=== PATIENT | male | born 1955 | race Caucasian/White ===

== ENCOUNTER 2016-12-02 06:48 | Inpatient (IN) | payer OTHER ==
--- NOTE | 2016-12-02 07:06 | PDOC ---
History of Present Illness - General Chief Complaint: Nausea/Vomiting Stated Complaint: NAUSEA/VOMITING Time Seen by Provider: 12/02/16 07:03 - History of Present Illness Initial Comments: 12/02/16 07:27 The pt is a 61 year old male with a significant PMH of A.Fib., COPD, CKD, DM, HDL, CABG, history of gastric ulcer, hx of testicular cancer who presents to ED after near syncope episode today. 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 He pulled over, stopped cab and called for assistance. He vomited twice non-bloody, non bilious. Currently he is still feeling unsteady and lightheaded. He denies chest pain, SOB, palpitations, LOC. He denies diarrhea, constipation, fever, chills. He had similar episode last summer when he was hospitalized and transfused blood. Past History - Past Medical History Allergies/Adverse Reactions: Allergies Allergy/AdvReac Type Severity Reaction Status Date / Time latex AdvReac Severe Rash Verified 12/02/16 06:59 TAPE AdvReac Severe Uncoded 12/02/16 06:59 Home Medications: Ambulatory Orders Multivitamin [Multivitamins] 1 each PO DAILY 10/03/12 Insulin NPL/Insulin Lispro [Humalog Mix 50-50 Pen] 60 unit SQ HS #0 ml 01/10/14 Insulin NPL/Insulin Lispro [Humalog Mix 75-25 Pen] 60 unit SQ AM #0 ml 01/10/14 Metformin HCl [Glucophage] 1,000 mg PO BID 05/28/15 Pantoprazole Sodium [Protonix] 40 mg PO DAILY 05/28/15 Atorvastatin Ca [Lipitor] 20 mg PO HS tablet 03/31/16 Aspirin [ASA -] 81 mg PO DAILY 04/21/16 Unobtainable 12/02/16 Anemia: Yes Asthma: No Cancer: Yes (testicular -> surgery + chemo in ) Cardiac Disorders: Yes (ATRIAL [id number] "NUCLEAR CHIP" FOR EVENING RHYTHM MONITORING) CVA: No COPD: No CHF: No Dementia: No Diabetes: Yes (type 1 since 31 y/o) GI Disorders: No Disorders: No HTN: Yes Hypercholesterolemia: Yes Liver Disease: No Suicide Attempt (Hx): No Seizures: No Thyroid Disease: No - Surgical History Abdominal Surgery: No Appendectomy: Yes () Cardiac Surgery: Yes (2007 triple bypass, aortic valve GROWTH REMOVED, ablaTion) Cholecystectomy: Yes (2009) Lung Surgery: No Neurologic Surgery: No Orthopedic Surgery: No - Immunization History Immunization Up to Date: Yes - Psycho/Social/Smoking Cessation Hx Anxiety: No Suicidal Ideation: No Smoking Status: Yes Smoking History: Current every day smoker Have you smoked in the past 12 months: Yes Number of Cigarettes Smoked Daily: 40 If you are a former smoker, when did you quit?: PER , PT. DENIES SMOKING Cigars Per Day: 0 Information on smoking cessation initiated: No 'Breaking Loose' booklet given: 01/19/16 Hx Alcohol Use: No Drug/Substance Use Hx: No Substance Use Type: None Hx Substance Use Treatment: No Review of Systems - Review of Systems Able to Perform ROS?: Yes Comments:: 12/02/16 07:49 REVIEW OF SYSTEMS CONSTITUTIONAL: generalized weakness Absent: fever, chills, diaphoresis, malaise, loss of appetite, weight change HEENT: Absent: rhinorrhea, nasal congestion, throat pain, throat swelling, difficulty swallowing, mouth swelling, ear pain, eye pain, visual changes CARDIOVASCULAR: Absent: chest pain, syncope, palpitations, irregular heart rate, lightheadedness , peripheral edema RESPIRATORY: Absent: cough, shortness of breath, dyspnea with exertion, orthopnea, wheezing, stridor, hemoptysis GASTROINTESTINAL: Absent: abdominal pain, abdominal distension, nausea, vomiting, diarrhea, constipation, melena, hematochezia GENITOURINARY: Absent: dysuria, frequency, urgency, hesitancy, hematuria, flank pain, genital pain MUSCULOSKELETAL: Absent: myalgia, arthralgia, joint swelling, back pain, neck pain SKIN: Absent: rash, itching, pallor HEMATOLOGIC/IMMUNOLOGIC: Absent: easy bleeding, easy bruising, lymphadenopathy, frequent infections ENDOCRINE: Absent: unexplained weight gain, unexplained weight loss, heat intolerance, cold intolerance NEUROLOGIC: dizziness, unsteady gait Absent: headache, focal weakness or paresthesias,, seizure, mental status changes, bladder or bowel incontinence PSYCHIATRIC: Absent: anxiety, depression *Physical Exam - Vital Signs Last Vital Signs Temp Pulse Resp BP Pulse Ox 98.7 F 87 22 154/97 97 12/02/16 06:59 12/02/16 06:59 12/02/16 06:59 12/02/16 06:59 12/02/16 06:59 - Physical Exam Comments: 12/02/16 07:50 GENERAL: The patient is awake, alert, and fully oriented, in no acute distress. HEAD: Normal with no signs of trauma. EYES: PERRL, extraocular movements intact, sclera anicteric, conjunctiva clear. No ptosis. ENT: Ears normal, nares patent, oropharynx clear without exudates, moist mucous membranes. NECK: Trachea midline, full range of motion, supple. LUNGS: Breath sounds equal, diminished bilaterally, no wheezes, no crackles, no accessory muscle use. HEART: Regular rate and rhythm, S1, S2 without murmur, rub or gallop. ABDOMEN: Obese, soft, nontender, nondistended, normoactive bowel sounds, no guarding, no rebound, no hepatosplenomegaly, no masses. EXTREMITIES: no edema. NEUROLOGICAL: Normal speech, no facial assymetry, gait not observed. PSYCH: Normal mood, normal affect. SKIN: Warm, dry, normal turgor, no rashes, long vertical scar from chest across the abdomen. ED Treatment Course - LABORATORY CBC & Chemistry Diagram: 12/02/16 08:15 12/02/16 08:15 Medical Decision Making - Medical Decision Making 12/02/16 07:58 The pt is a 61 year old male who presents s/p near syncope earlier today. Differential diagnosis include cardiac, metabolic imbalance, anemia, infection. We ordered CBC, CMP, CXR, ECG, cardiac monitoring, PT, PTT/INR, UA. We will monitor. 12/02/16 09:47 chest x ray shows no acute pathology, CBC and CMP reviewed, no anemia, UA blood and protein present, no Leuk.Est elev. We are monitoring the pt, EKG sinus rhytm, 71 bpm, 1st degree AV block, right axis deviation, incomplete RBBB, no ST changes QTC 445 ms. He is still unsteady and feels lightheaded. We contacted Dr. Sullivan and Dr. Levine. The pt will be observed in telemetry. *DC/Admit/Observation/Transfer Diagnosis at time of Disposition: Near syncope - Discharge Dispostion Admit: Yes
[2016-12-02 07:09] VITALS: BMI 28.5
[2016-12-02] MEDS ORDERED: PANTOPRAZOLE SODIUM 40 MG in SODIUM CHLORIDE 100 ML IVPB ONE (07:33)
--- NOTE | 2016-12-02 07:39 | PDOC ---
Attending Attestation - Resident Resident Name: Damaris Haines - ED Attending Attestation I have performed the following: I have examined & evaluated the patient, The case was reviewed & discussed with the resident, I agree w/resident's findings & plan, Exceptions are as noted - HPI HPI: 12/02/16 07:37 61-year-old male history of atrial fibrillation, on baby aspirin, COPD, chronic kidney disease, diabetes, coronary artery disease status post CABG, hyperlipidemia, testicular cancer, history of GI bleed in the setting of gastric ulcer presents with lightheadedness and near syncope. Patient reported feeling general malaise yesterday. He woke up today at 3:30 the morning to go to work but noticed that he was feeling unsteady and more lightheaded upon standing up. He feels generalized weakness but denies any chest pain or shortness of breath. Denies any palpitations. Denies recent illnesses, fevers, chills, cough. Patient reported that last summer when it is similar incident of feeling lightheaded and weak, his hemoglobin was low and required but just fusions. He had an endoscopy performed which demonstrated gastric ulcer. Denies rectal bleeding at this time. - Physicial Exam PE: 12/02/16 07:37 GENERAL: Awake, alert, and fully oriented, in no acute distress. HEAD: No signs of trauma EYES: PERRLA, EOMI, sclera anicteric, conjunctiva clear ENT: Auricles normal inspection, hearing grossly normal, nares patent, oropharynx clear without exudates. NECK: Normal ROM, supple, no lymphadenopathy, JVD, or masses LUNGS: Breath sounds equal, clear to auscultation bilaterally. No wheezes, and no crackles HEART: Regular rate and rhythm, normal S1 and S2, no murmurs, rubs or gallops ABDOMEN: Soft, nontender, normoactive bowel sounds. No guarding, no rebound. No masses EXTREMITIES: Normal range of motion, no edema. No clubbing or cyanosis. No cords, erythema, or tenderness NEUROLOGICAL: Cranial nerves II through XII intact. Normal speech. 5/5 strength upper and lower extremities. No pronator drift. FTN intact. Heel to garcia intact. Unsteady gait after standing up. SKIN: Warm, Dry, normal turgor, no rashes or lesions noted. - Medical Decision Making 12/02/16 07:38 ECG: NSR 71 with 1st degree AV block, right axis deviation, incomplete RBBB, no std/gualberto, QTC 445 msec Assessment and plan: 61-year-old male with multiple medical problems presents with lightheadedness. The patient frontal includes cardiac, anemia secondary to GI bleed, metabolic disarray, occult infectious. We'll obtain labs, chest x-ray, and reassess. Patient is unsteady on his gait. We'll touch base with patient's primary care physician.
[2016-12-02] MEDS ORDERED: PANTOPRAZOLE SODIUM 40 MG VIAL ONE (07:52)
[2016-12-02 08:35] LABS: MCH 24.8 pg (25.7-33.7); MCHC 32.6 g/dl (32.0-35.9); MEAN CELL VOLUME 76.1 fl (80-96); MEAN PLT VOLUME 8.1 fl (7.5-11.1); PLATELET COUNT 192 K/MM3 (134-434); RDW 16.4 % (11.9-15.9); WHITE BLOOD COUNT 6.4 K/mm3 (4.0-10.0)
[2016-12-02 08:45] LABS: INR 0.96 (0.82-1.09); PROTHROMBIN TIME (PATIENT) 10.6 SEC (9.98-11.88)
[2016-12-02] MEDS ORDERED: SODIUM CHLORIDE 500 ML IV STA (08:45)
[2016-12-02 08:52] LABS: ALBUMIN 3.4 g/dl (3.4-5.0); ANION GAP 10 (8-16); BILIRUBIN,TOTAL 0.4 mg/dL (0.2-1.0); CALCIUM 8.8 mg/dL (8.5-10.1); CO2 29 mmol/L (21-32); CREATININE 1.1 mg/dL (0.7-1.3); GLUCOSE,RANDOM 210 mg/dL (74-106); SGOT/AST 19 U/L (15-37); SGPT/ALT 31 U/L (12-78); TOT PROT 6.3 g/dl (6.4-8.2)
[2016-12-02 08:53] LABS: ALK PHOS 86 U/L (45-117)
[2016-12-02 09:04] LABS: URINE APPEARANCE CLEAR; URINE BILIRUBIN NEGATIVE (NEGATIVE); URINE BLOOD NEGATIVE (NEGATIVE); URINE COLOR AMBER; URINE GLUCOSE (UA) 3+ (NEGATIVE); URINE KETONE TRACE (NEGATIVE); URINE LEUK ESTERASE NEGATIVE (NEGATIVE); URINE NITRITE NEGATIVE (NEGATIVE); URINE UROBILINOGEN 2.0 E.U/dl E.U./dl (0.2-1.0)
[2016-12-02 09:05] LABS: URINE PROTEIN 3+ (NEGATIVE)
[2016-12-02 09:09] LABS: GRANULAR CASTS 1 /lpf; URINE HYALINE CAST 73 /lpf; URINE MUCUS FEW; URINE RBC 1 /hpf (0-3); URINE WBC 2 /hpf (3-5)
[2016-12-02 09:22] LABS: TROPONIN I 0.03 ng/ml (0.00-0.05)
--- NOTE | 2016-12-02 14:57 | CON.CARD ---
Cardiology Consult (text) - Consultation Consultation Note: CC: presyncope 61 yo heavy smoker with h/o CAD--s/p CABG and resection of fibroelastoma, HTN, HPL, aflutter s/p ablation 2010 now with loop recorder (off eliquis due to GIB) , COPD, IDDM, Lymphoma--s/p expl sternotomy and XRT in 70's who presents with recurrent presyncope. 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 Had similar episode this past summer also triggered by smoking cigarette. Otherwise he had been in usual state of health. He has chronic right LE edema (site of vein extraction) . No cp, palps, dizziness, orthpnea, PND, BOYCE, transient neurologic sx's. He denies fever, chills, sweats, nausea, vomiting, diarrhea, headache, rashes, cough, nasal congestion. Pmhx: per hpi PSurg hx: CABG, Cholecystectomy Social hx: Current every day smoker, states he smoke 3 packs per day Fam hx: Diabetes: Grandparent, Heart Disease: Father Ros: per hpi Ambulatory Orders Multivitamin [Multivitamins] 1 each PO DAILY 10/03/12 Insulin NPL/Insulin Lispro [Humalog Mix 50-50 Pen] 60 unit SQ HS #0 ml 01/10/14 Insulin NPL/Insulin Lispro [Humalog Mix 75-25 Pen] 60 unit SQ AM #0 ml 01/10/14 Metformin HCl [Glucophage] 1,000 mg PO BID 05/28/15 Pantoprazole Sodium [Protonix] 40 mg PO BID 05/28/15 Atorvastatin Ca [Lipitor] 20 mg PO HS tablet 03/31/16 Aspirin [ASA -] 81 mg PO DAILY 04/21/16 Insulin Aspart [Novolog Flexpen] 14 unit SQ HS 12/02/16 Ramipril 2.5 mg PO DAILY 12/02/16 Vital Signs - 24 hr 12/02/16 12/02/16 06:59 10:47 Temperature 98.7 F 98.3 F Pulse Rate 87 83 Respiratory 22 18 Rate Blood Pressure 154/97 163/94 O2 Sat by Pulse 97 100 Oximetry (%) Intake & Output 11/30/16 12/01/16 12/02/1617 07:59 07:59 07:59 07:59 Weight 235 lb 235 lb NAD, calm JVD flat, neck supple RRR nl s1, s2 2/6 sys murmur at lsb diminshed air movement + bs soft nt nd ext with trace edema , no c/c + dp/pt aaox3 no jaundice, diaphoresis no carotid bruits. - Other Data Labs, Other Data: CBC, BMP 12/02/16 08:15 12/02/16 08:15 Laboratory Tests 12/02/16 12/02/16 12/02/16 08:15 17:00 17:00 Total Bilirubin 0.4 D AST 19 D ALT 31 Alkaline Phosphatase 86 Troponin I 0.03 D 0.02 D B-Natriuretic Peptide 275.30 H Albumin 3.4 Imaging/Testing EKG: SR with PVC. Rightward axis. AV delay. Incomplete RBBB. Possible anterior infarct. tele: NSR with pvc. occasional ectopic atrial beats vs wandering atrial pacemaker. CXR: no significant abnormalities Echo 03/2016: nl LV/EF; nl RV; mild LAE; mild EP study 03/2015: no inducible arrythmia, durable bidirectional block across CTI ( site of prior ablation) Echo 11/2014: normal LV/RV size and function, ao sclerosis, [facility] 08/2012: [place] VD, patent SVG to Lcx-OM1 jump to RPDA, patent SON to LAD 61 yo heavy smoker with h/o CAD--s/p CABG and resection of fibroelastoma, HTN, HPL, aflutter s/p ablation 2010 now with loop recorder (off eliquis due to GIB) , COPD, IDDM, Lymphoma--s/p expl sternotomy and XRT in 70's who presents with recurrent presyncope. Presyncope - orthostatic vitals - Current episode as well as prior episodes have occurred in setting of smoking (smokes 3 ppd). Recommend pre and post O2 sat to r/o pulmonary etiology of dizziness/presyncope. -Most recent episode thought to be vasovagal in etiology, but cannot rule out symptomatic afib. Per EP no arrhythmia noted overnight, but morning recordings not yet available. Telemetry monitoring - EKG without ischemic changes. CE neg x 2. - TSH afib/flutter s/p ablation, followed by EP - has implantable loop recorder with brief episodes of recurrence over the year. Currently in SR off av richard blockade. - currently AC on hold until small bowel enteroscopy due to recent GIB. HTN - suboptimal, but has not yet received ramipril, con't to monitor HL - con't atorvastatin CAD s/p CABG - No signs of ACS or anginal sx's. - con't asa, statin, acei + tobacco - management of copd - tobacco cessation counseling
--- NOTE | 2016-12-02 16:22 | HP ---
Admitting History and Physical - Admission Chief Complaint: 61 y.o M became dizzy and nearly syncopized today at 4 AM while working. 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 No: Alzheimer's, CVA, Dementia, Migraine, Multiple Sclerosis, Peripheral Neuropathy, Parkinson's, Seizure, TIA, Other Cardiovascular: Yes: AFIB, CAD, HTN, Hyperlipdemia, Other (A flutter) Pulmonary: Yes: COPD Hepatobiliary: Yes: Cholecystitis (Cholecystectomy) Renal/: Yes: Renal Inusuff Endocrine: Yes: Diabetes Mellitus - Past Surgical History Past Surgical History: Yes: CABG, Cholecystectomy - Smoking History Smoking history: Current every day smoker Have you smoked in the past 12 months: Yes Aproximately how many cigarettes per day: 40 If you are a former smoker, when did you quit?: PER , PT. DENIES SMOKING - Alcohol/Substance Use Hx Alcohol Use: No - Social History History of Recent Travel: No Home Medications - Allergies Allergies/Adverse Reactions: Allergies Allergy/AdvReac Type Severity Reaction Status Date / Time latex AdvReac Severe Rash Verified 12/02/16 06:59 TAPE AdvReac Severe Uncoded 12/02/16 06:59 - Home Medications Home Medications: Ambulatory Orders Multivitamin [Multivitamins] 1 each PO DAILY 10/03/12 Insulin NPL/Insulin Lispro [Humalog Mix 50-50 Pen] 60 unit SQ HS #0 ml 01/10/14 Insulin NPL/Insulin Lispro [Humalog Mix 75-25 Pen] 60 unit SQ AM #0 ml 01/10/14 Metformin HCl [Glucophage] 1,000 mg PO BID 05/28/15 Pantoprazole Sodium [Protonix] 40 mg PO BID 05/28/15 Atorvastatin Ca [Lipitor] 20 mg PO HS tablet 03/31/16 Aspirin [ASA -] 81 mg PO DAILY 04/21/16 Insulin Aspart [Novolog Flexpen] 14 unit SQ HS 12/02/16 Ramipril 2.5 mg PO DAILY 12/02/16 Family Disease History - Family Disease History Family Disease History: Diabetes: Grandparent, Heart Disease: Father Review of Systems - Review of Systems Constitutional: denies: No Symptoms, Chills, Diaphoresis, Fever, Lethargy, Loss of Appetite, Malaise, Night Sweats, Unintentional Wgt. Loss, Weakness, Other Eyes: denies: No Symptoms, Blind Spots, Blurred Vision, Double Vision, Eye Pain , Floaters, Photophobia, Recent Change in Vision, Other HENT: denies: No Symptoms, Difficult Swallowing, Ear Discharge, Ear Pain, Epistaxis, Gingival Bleeding, Hearing Loss, Mouth Swelling, Nasal Congestion, Ocular Prosthesis, Throat Pain, Toothache, Ringing in Ears, Other Neck: denies: No Symptoms, Decreased ROM, Lumps, Pain on Movement, Stiffness, Swollen Glands, Tenderness, Other Cardiovascular: denies: No Symptoms, Chest Pain, Edema, Palpitations, Shortness of Breath, Other Respiratory: denies: No Symptoms, Cough, Exercise Intolerance, Hemoptysis, Orthopnea, PND, Snoring, SOB, SOB on Exertion, Wheezing, Other Gastrointestinal: denies: No Symptoms, Abdominal Pain, Bloating, Constipation, Diarrhea, Dysphagia, Indigestion, Melena, Nausea, Rectal Bleeding, Vomiting, Vomiting Blood, Other Breasts: reports: No Symptoms Reported Musculoskeletal: denies: No Symptoms, Back Pain, Crepitus, Decreased ROM, Extremity Pain, Joint Pain, Joint Swelling, Muscle Pain, Muscle Cramps, Muscle Weakness, Other Integumentary: denies: No Symptoms, Blister, Bruising, Change in Color, Eczema, Erythema, Incision, Lesions, Lump, Pallor, Pruritis, Rash, Wound, Other Endocrine: denies: No Symptoms, Excessive Sweating, Flushing, Increased Hunger, Increased Thirst, Intolerance to Cold, Intolerance to Heat, Unexplained Weight Gain, Unexplained Weight Loss, Other Hematology/Lymphatic: reports: No Symptoms Psychiatric: reports: No Symptoms Physical Examination Vital Signs: Vital Signs Temperature 98.2 F 12/02/16 15:09 Pulse Rate 73 12/02/16 15:09 Respiratory Rate 18 12/02/16 15:09 Blood Pressure 117/80 12/02/16 15:09 O2 Sat by Pulse Oximetry (%) 96 12/02/16 14:00 Constitutional: Yes: Well Nourished, No Distress, Calm Eyes: Yes: Conjunctiva Clear, EOM Intact HENT: Yes: Atraumatic, Normocephalic Neck: Yes: Supple, Trachea Midline Cardiovascular: Yes: Regular Rate and Rhythm. No: Bradycardia, Tachycardia, JVD Respiratory: Yes: Regular, CTA Bilaterally Gastrointestinal: Yes: Normal Bowel Sounds, Soft, Other (Well healed scars). No : Ascites, Palpable Mass, Tenderness ...Rectal Exam: Yes: Deferred Renal/: No: Anuria, Bladder Distention, CVA Tenderness - Left, CVA Tenderness - Right Musculoskeletal: Yes: WNL Extremities: No: Calf Tenderness, Cold Edema: LLE: Trace, RLE: Trace Peripheral Pulses WNL: No Integumentary: Yes: WNL Neurological: Yes: WNL ...Motor Strength: WNL Psychiatric: Yes: WNL Imaging - Results EKG: Image Reviewed Problem List - Problems (1) Near syncope Assessment/Plan: Known cuase previously rapid AFIB Will get Loop monitor results. Telemetry Code(s): R55 - SYNCOPE AND COLLAPSE (2) 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 Assessment/Plan: Basal Insulin and short acting. BGM Diet, Metformin Code(s): E11.22 - TYPE 2 DIABETES MELLITUS W DIABETIC CHRONIC KIDNEY DISEASE N18.2 - CHRONIC KIDNEY DISEASE, STAGE 2 (MILD) Qualifiers: Diabetes mellitus shelter insulin use: with shelter use Qualified Code(s): E11.22 - Type 2 diabetes mellitus with diabetic chronic kidney disease; N18.2 - Chronic kidney disease, stage 2 (mild); Z79.4 - director long term care (current) use of insulin (3) Occult GI bleeding Assessment/Plan: Follow CBC Code(s): R19.5 - OTHER FECAL ABNORMALITIES
--- NOTE | 2016-12-02 17:10 | EKG ---
Test Reason : Blood Pressure : / mmHG Vent. Rate : 071 BPM Atrial Rate : 071 BPM P-R Int : 202 ms QRS Dur : 106 ms QT Int : 410 ms P-R-T Axes : 068 095 050 degrees QTc Int : 445 ms SINUS RHYTHM WITH OCCASIONAL PREMATURE VENTRICULAR COMPLEXES RIGHTWARD AXIS INCOMPLETE RIGHT BUNDLE BRANCH BLOCK POSSIBLE ANTERIOR INFARCT , AGE UNDETERMINED ABNORMAL ECG WHEN COMPARED WITH ECG OF 25-APR-2016 23:36, ABERRANT CONDUCTION IS NO LONGER PRESENT Confirmed by DIPIKA ROSALES MD ([id number]) on 12/02/2016 5:10:16 PM Referred By: Confirmed By:DIPIKA ROSALES MD
[2016-12-02] MEDS: metFORMIN HCL 500 MG TABLET (FP) PO SCH (18:15)
[2016-12-02] MEDS: PANTOPRAZOLE 40 MG TABLET (FP) PO SCH (21:13)
[2016-12-02] MEDS: INSULIN DETEMIR 100 UNITS/ML MDV SQ SCH (21:14)
[2016-12-02] MEDS ORDERED: [UNRECOGNIZED DRUG - OTHER] SQ SCH (22:00)
[2016-12-02] MEDS ORDERED: INSULIN (NOVOLOG) ASPART 100 UNITS/ML 10ML VIAL SQ SCH (22:00)
[2016-12-02] MEDS ORDERED: ATORVASTATIN CA 20 MG TABLET (FP) PO SCH (22:00)
[2016-12-02] MEDS ORDERED: INSULIN LISPRO SQ SCH (22:00)
[2016-12-02] MEDS ORDERED: INSULIN NPL SQ SCH (22:00)
[2016-12-03] MEDS: metFORMIN HCL 500 MG TABLET (FP) PO SCH (06:11)
[2016-12-03 08:19] LABS: BASOPHIL 0.8 % (0-2.0); EOSINOPHIL 2.2 % (0-4.5); MCH 24.8 pg (25.7-33.7); MCHC 32.5 g/dl (32.0-35.9); MEAN CELL VOLUME 76.3 fl (80-96); MEAN PLT VOLUME 8.1 fl (7.5-11.1); NEUTROPHILS 70.8 % (42.8-82.8); PLATELET COUNT 193 K/MM3 (134-434); RDW 16.4 % (11.9-15.9); WHITE BLOOD COUNT 6.5 K/mm3 (4.0-10.0)
--- NOTE | 2016-12-03 08:37 | PN ---
Progress Note (short form) - Note Progress Note: Awake, alert, NAD. Non-orthostatic. Ambulates in the room well, no dizziness Alarms review- SR, VPC Vital Signs (72 hours) 12/02/16 12/02/16 12/02/16 06:59 10:47 14:00 Temperature 98.7 F 98.3 F 97.9 F Pulse Rate 87 83 62 Pulse Rate [ Left side Sitting] Pulse Rate [ Left side Standing] Pulse Rate [ Left side Supine] Respiratory 22 18 18 Rate Blood Pressure 154/97 163/94 130/62 Blood Pressure [Left side Sitting] Blood Pressure [Left side Standing] Blood Pressure [Left side Supine] O2 Sat by Pulse 97 100 96 Oximetry (%) 12/02/16 12/02/16 12/02/16 15:09 16:13 16:50 Temperature 98.2 F 98.5 F Pulse Rate 73 82 Pulse Rate [ 77 Left side Sitting] Pulse Rate [ 82 Left side Standing] Pulse Rate [ 74 Left side Supine] Respiratory 18 18 Rate Blood Pressure 117/80 133/72 Blood Pressure 117/59 [Left side Sitting] Blood Pressure 142/77 [Left side Standing] Blood Pressure 124/71 [Left side Supine] O2 Sat by Pulse Oximetry (%) 12/02/16 12/03/16 12/03/16 21:00 02:00 06:46 Temperature 99.3 F 98.1 F 98.4 F Pulse Rate 82 81 79 Pulse Rate [ Left side Sitting] Pulse Rate [ Left side Standing] Pulse Rate [ Left side Supine] Respiratory 18 18 18 Rate Blood Pressure 136/81 116/63 161/72 Blood Pressure [Left side Sitting] Blood Pressure [Left side Standing] Blood Pressure [Left side Supine] O2 Sat by Pulse 93 L Oximetry (%) Neck-no JVD Lungs are Clear Heart S1S2 regular. Abdomen soft, NT Ext -trace edema Noted protein URINE 3+ h/h STABLE-iMP Abnormal Lab Results 12/02/16 12/02/16 12/02/16 08:15 08:15 08:30 MCV 76.1 L RDW 16.4 H D Random Glucose 210 H B-Natriuretic Peptide Total Protein 6.3 L Urine Protein 3+ H Urine Glucose (UA) 3+ H Urine Ketones Trace H 12/02/16 12/03/16 17:00 06:30 MCV 76.3 L RDW 16.4 H Random Glucose B-Natriuretic Peptide 275.30 H Total Protein Urine Protein Urine Glucose (UA) Urine Ketones Laboratory Results - last 24 hr 12/02/16 12/02/16 12/02/16 08:15 08:15 08:15 WBC 6.4 D RBC 5.30 Hgb 13.1 Hct 40.3 MCV 76.1 L MCHC 32.6 RDW 16.4 H D Plt Count 192 MPV 8.1 Neutrophils % Lymphocytes % Monocytes % Eosinophils % Basophils % INR PTT (Actin FS) Sodium 140 Potassium 4.8 Chloride 101 Carbon Dioxide 29 D Anion Gap 10 BUN 17 D Creatinine 1.1 D Creat Clearance w eGFR > 60 POC Glucometer Random Glucose 210 H Calcium 8.8 Total Bilirubin 0.4 D AST 19 D ALT 31 Alkaline Phosphatase 86 Creatine Kinase Cancelled 125 Troponin I Cancelled 0.03 D B-Natriuretic Peptide Total Protein 6.3 L Albumin 3.4 Urine Color Urine Appearance Urine pH Ur Specific [place] Urine Protein Urine Glucose (UA) Urine Ketones Urine Blood Urine Nitrite Urine Bilirubin Urine Urobilinogen Ur Leukocyte Esterase Urine RBC Urine WBC Ur Epithelial Cells Hyaline Casts Granular Casts Urine Mucus Blood Type Antibody Screen 12/02/16 12/02/16 12/02/16 08:15 08:15 08:15 WBC RBC Hgb Hct MCV MCHC RDW Plt Count MPV Neutrophils % Lymphocytes % Monocytes % Eosinophils % Basophils % INR 0.96 PTT (Actin FS) 32.0 Sodium Potassium Chloride Carbon Dioxide Anion Gap BUN Creatinine Creat Clearance w eGFR POC Glucometer Random Glucose Calcium Total Bilirubin AST ALT Alkaline Phosphatase Creatine Kinase Troponin I B-Natriuretic Peptide Total Protein Albumin Urine Color Urine Appearance Urine pH Ur Specific [place] Urine Protein Urine Glucose (UA) Urine Ketones Urine Blood Urine Nitrite Urine Bilirubin Urine Urobilinogen Ur Leukocyte Esterase Urine RBC Urine WBC Ur Epithelial Cells Hyaline Casts Granular Casts Urine Mucus Blood Type A POSITIVE Antibody Screen Negative 12/02/16 12/02/16 12/02/16 08:30 17:00 17:00 WBC RBC Hgb Hct MCV MCHC RDW Plt Count MPV Neutrophils % Lymphocytes % Monocytes % Eosinophils % Basophils % INR PTT (Actin FS) Sodium Potassium Chloride Carbon Dioxide Anion Gap BUN Creatinine Creat Clearance w eGFR POC Glucometer Random Glucose Calcium Total Bilirubin AST ALT Alkaline Phosphatase Creatine Kinase Troponin I 0.02 D B-Natriuretic Peptide 275.30 H Total Protein Albumin Urine Color [place] Urine Appearance Clear Urine pH 5.0 Ur Specific [place] 1.027 Urine Protein 3+ H Urine Glucose (UA) 3+ H Urine Ketones Trace H Urine Blood Negative Urine Nitrite Negative Urine Bilirubin Negative Urine Urobilinogen 2.0 e.u/dl Ur Leukocyte Esterase Negative Urine RBC 1 Urine WBC 2 Ur Epithelial Cells Rare Hyaline Casts 73 Granular Casts 1 Urine Mucus Few Blood Type Antibody Screen 12/02/16 12/02/16 12/03/16 18:09 20:53 05:23 WBC RBC Hgb Hct MCV MCHC RDW Plt Count MPV Neutrophils % Lymphocytes % Monocytes % Eosinophils % Basophils % INR PTT (Actin FS) Sodium Potassium Chloride Carbon Dioxide Anion Gap BUN Creatinine Creat Clearance w eGFR POC Glucometer 374 370 79 Random Glucose Calcium Total Bilirubin AST ALT Alkaline Phosphatase Creatine Kinase Troponin I B-Natriuretic Peptide Total Protein Albumin Urine Color Urine Appearance Urine pH Ur Specific [place] Urine Protein Urine Glucose (UA) Urine Ketones Urine Blood Urine Nitrite Urine Bilirubin Urine Urobilinogen Ur Leukocyte Esterase Urine RBC Urine WBC Ur Epithelial Cells Hyaline Casts Granular Casts Urine Mucus Blood Type Antibody Screen 12/03/16 06:30 WBC 6.5 RBC 5.09 Hgb 12.6 Hct 38.8 MCV 76.3 L MCHC 32.5 RDW 16.4 H Plt Count 193 MPV 8.1 Neutrophils % 70.8 Lymphocytes % 18.0 D Monocytes % 8.2 D Eosinophils % 2.2 D Basophils % 0.8 D INR PTT (Actin FS) Sodium Potassium Chloride Carbon Dioxide Anion Gap BUN Creatinine Creat Clearance w eGFR POC Glucometer Random Glucose Calcium Total Bilirubin AST ALT Alkaline Phosphatase Creatine Kinase Troponin I B-Natriuretic Peptide Total Protein Albumin Urine Color Urine Appearance Urine pH Ur Specific [place] Urine Protein Urine Glucose (UA) Urine Ketones Urine Blood Urine Nitrite Urine Bilirubin Urine Urobilinogen Ur Leukocyte Esterase Urine RBC Urine WBC Ur Epithelial Cells Hyaline Casts Granular Casts Urine Mucus Blood Type Antibody Screen iMP Current Active Problems Problem Status Diagnosed Anemia Acute 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 Acute Near syncope Acute Occult GI bleeding Acute Pneumonia Acute Right renal mass Acute pLAN mONITOR PER CARDIOLOGY aRRHYTHMIA W/U, ABLATION. gi F/U RE PREVIOUYS BLEED- sb ENTEROSCOPY. wILL FOLLOW IN THE OFFICE pATIENT AGAIN ADVISED TO QUIT SMOKING! AND TO BE MORE COMPLIANT WITH DIABETES TREATMENTS. 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
--- NOTE | 2016-12-03 08:39 | DS ---
Physical Examination Vital Signs: Vital Signs Temperature 98.4 F 12/03/16 06:46 Pulse Rate 79 12/03/16 06:46 Respiratory Rate 18 12/03/16 06:46 Blood Pressure 161/72 12/03/16 06:46 O2 Sat by Pulse Oximetry (%) 93 L 12/02/16 21:00 Constitutional: Yes: No Distress, Calm Eyes: Yes: Conjunctiva Clear, EOM Intact HENT: Yes: Atraumatic, Normocephalic Neck: Yes: Supple, Trachea Midline Cardiovascular: Yes: Pulse Irregular (vpc), S1, S2. No: Bradycardia, Tachycardia, JVD, Rub Respiratory: Yes: Regular, CTA Bilaterally Gastrointestinal: Yes: Normal Bowel Sounds, Soft, Abdomen, Obese. No: Palpable Mass, Tenderness ...Rectal Exam: Yes: Deferred Renal/: No: Anuria, Bladder Distention, CVA Tenderness - Left, CVA Tenderness - Right Breast(s): Yes: WNL Musculoskeletal: Yes: WNL Extremities: No: Calf Tenderness, Cold Edema: Yes Edema: LLE: Trace, RLE: Trace Peripheral Pulses WNL: No Neurological: Yes: Alert, Oriented. No: Aphasia, Confusion, Dysarthria, Facial Droop, Lethargy, Pre-Existing Deficit, Seizure, Unresponsive, Unsteady Gait, Weakness ...Motor Strength: WNL Psychiatric: Yes: WNL Labs: CBC, BMP 12/03/16 06:30 Laboratory Results - last 24 hr 12/02/16 12/02/16 12/02/16 08:15 08:15 08:15 WBC RBC Hgb Hct MCV MCHC RDW Plt Count MPV Neutrophils % Lymphocytes % Monocytes % Eosinophils % Basophils % INR 0.96 PTT (Actin FS) Sodium 140 Potassium 4.8 Chloride 101 Carbon Dioxide 29 D Anion Gap 10 BUN 17 D Creatinine 1.1 D Creat Clearance w eGFR > 60 POC Glucometer Random Glucose 210 H Calcium 8.8 Total Bilirubin 0.4 D AST 19 D ALT 31 Alkaline Phosphatase 86 Creatine Kinase Cancelled 125 Troponin I Cancelled 0.03 D B-Natriuretic Peptide Total Protein 6.3 L Albumin 3.4 Urine Color Urine Appearance Urine pH Ur Specific [place] Urine Protein Urine Glucose (UA) Urine Ketones Urine Blood Urine Nitrite Urine Bilirubin Urine Urobilinogen Ur Leukocyte Esterase Urine RBC Urine WBC Ur Epithelial Cells Hyaline Casts Granular Casts Urine Mucus Blood Type Antibody Screen 12/02/16 12/02/16 12/02/16 08:15 08:15 08:30 WBC RBC Hgb Hct MCV MCHC RDW Plt Count MPV Neutrophils % Lymphocytes % Monocytes % Eosinophils % Basophils % INR PTT (Actin FS) 32.0 Sodium Potassium Chloride Carbon Dioxide Anion Gap BUN Creatinine Creat Clearance w eGFR POC Glucometer Random Glucose Calcium Total Bilirubin AST ALT Alkaline Phosphatase Creatine Kinase Troponin I B-Natriuretic Peptide Total Protein Albumin Urine Color [place] Urine Appearance Clear Urine pH 5.0 Ur Specific [place] 1.027 Urine Protein 3+ H Urine Glucose (UA) 3+ H Urine Ketones Trace H Urine Blood Negative Urine Nitrite Negative Urine Bilirubin Negative Urine Urobilinogen 2.0 e.u/dl Ur Leukocyte Esterase Negative Urine RBC 1 Urine WBC 2 Ur Epithelial Cells Rare Hyaline Casts 73 Granular Casts 1 Urine Mucus Few Blood Type A POSITIVE Antibody Screen Negative 12/02/16 12/02/16 12/02/16 17:00 17:00 18:09 WBC RBC Hgb Hct MCV MCHC RDW Plt Count MPV Neutrophils % Lymphocytes % Monocytes % Eosinophils % Basophils % INR PTT (Actin FS) Sodium Potassium Chloride Carbon Dioxide Anion Gap BUN Creatinine Creat Clearance w eGFR POC Glucometer 374 Random Glucose Calcium Total Bilirubin AST ALT Alkaline Phosphatase Creatine Kinase Troponin I 0.02 D B-Natriuretic Peptide 275.30 H Total Protein Albumin Urine Color Urine Appearance Urine pH Ur Specific [place] Urine Protein Urine Glucose (UA) Urine Ketones Urine Blood Urine Nitrite Urine Bilirubin Urine Urobilinogen Ur Leukocyte Esterase Urine RBC Urine WBC Ur Epithelial Cells Hyaline Casts Granular Casts Urine Mucus Blood Type Antibody Screen 12/02/16 12/03/16 12/03/16 20:53 05:23 06:30 WBC 6.5 RBC 5.09 Hgb 12.6 Hct 38.8 MCV 76.3 L MCHC 32.5 RDW 16.4 H Plt Count 193 MPV 8.1 Neutrophils % 70.8 Lymphocytes % 18.0 D Monocytes % 8.2 D Eosinophils % 2.2 D Basophils % 0.8 D INR PTT (Actin FS) Sodium Potassium Chloride Carbon Dioxide Anion Gap BUN Creatinine Creat Clearance w eGFR POC Glucometer 370 79 Random Glucose Calcium Total Bilirubin AST ALT Alkaline Phosphatase Creatine Kinase Troponin I B-Natriuretic Peptide Total Protein Albumin Urine Color Urine Appearance Urine pH Ur Specific [place] Urine Protein Urine Glucose (UA) Urine Ketones Urine Blood Urine Nitrite Urine Bilirubin Urine Urobilinogen Ur Leukocyte Esterase Urine RBC Urine WBC Ur Epithelial Cells Hyaline Casts Granular Casts Urine Mucus Blood Type Antibody Screen Discharge Summary Reason For Visit: PRE SYNCOPE Current Active Problems Anemia (Acute) 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 (Acute) Near syncope (Acute) Occult GI bleeding (Acute) Pneumonia (Acute) Right renal mass (Acute) Condition: Stable - Instructions Referrals: Ko Sullivan MD [Primary Care Provider] - - Home Medications Comprehensive Discharge Medication List: Ambulatory Orders Multivitamin [Multivitamins] 1 each PO DAILY 10/03/12 Insulin NPL/Insulin Lispro [Humalog Mix 50-50 Pen] 60 unit SQ HS #0 ml 01/10/14 Insulin NPL/Insulin Lispro [Humalog Mix 75-25 Pen] 60 unit SQ AM #0 ml 01/10/14 Metformin HCl [Glucophage] 1,000 mg PO BID 05/28/15 Pantoprazole Sodium [Protonix] 40 mg PO BID 05/28/15 Atorvastatin Ca [Lipitor] 20 mg PO HS tablet 03/31/16 Aspirin [ASA -] 81 mg PO DAILY 04/21/16 Insulin Aspart [Novolog Flexpen] 14 unit SQ HS 12/02/16 Ramipril 2.5 mg PO DAILY 12/02/16
[2016-12-03 08:55] LABS: ALBUMIN 3.3 g/dl (3.4-5.0); GLUCOSE,RANDOM 75 mg/dL (74-106)
[2016-12-03 09:03] LABS: ALK PHOS 74 U/L (45-117); ANION GAP 10 (8-16); BILIRUBIN,TOTAL 0.3 mg/dL (0.2-1.0); CO2 28 mmol/L (21-32); MAGNESIUM 1.6 mg/dL (1.8-2.4); PHOSPHOROUS 4.4 mg/dL (2.5-4.9); SGOT/AST 16 U/L (15-37); SGPT/ALT 25 U/L (12-78)
--- NOTE | 2016-12-03 09:56 | EKG ---
Test Reason : Blood Pressure : / mmHG Vent. Rate : 082 BPM Atrial Rate : 082 BPM P-R Int : 192 ms QRS Dur : 106 ms QT Int : 388 ms P-R-T Axes : 000 088 067 degrees QTc Int : 453 ms SINUS RHYTHM WITH MARKED SINUS ARRHYTHMIA WITH FREQUENT PREMATURE VENTRICULAR COMPLEXES POSSIBLE INFERIOR INFARCT , AGE UNDETERMINED INCOMPLETE RBBB CANNOT RULE OUT ANTERIOR INFARCT (CITED ON OR BEFORE 02-DEC-2016) ABNORMAL ECG Confirmed by SARA JACKSON MD ([id number]) on 12/03/2016 9:55:47 AM Referred By: Confirmed By:SARA JACKSON MD
[2016-12-03] MEDS ORDERED: ASPIRIN 81 MG CHEWABLE TABLETS PO SCH (10:00)
[2016-12-03] MEDS ORDERED: RAMIPRIL 2.5 MG CAPSULE (FP) PO SCH (10:00)
[2016-12-03] MEDS: INSULIN DETEMIR 100 UNITS/ML MDV SQ SCH (10:08)
[2016-12-03] MEDS: PANTOPRAZOLE 40 MG TABLET (FP) PO SCH (10:08)
[2016-12-03 10:15] VITALS: BP 103/64; PULSE 80; TEMP 98.3
--- NOTE | 2016-12-03 11:28 | PN ---
Progress Note (short form) - Note Progress Note: s: no cp sob palps dizzy loc o: Vital Signs Period Temp Pulse Resp BP Sys/Perez Pulse Ox Last 24 Hr 97.9 F-99.3 F 62-82 16-18 103-161/59-81 93-96 NAD, calm JVD flat, neck supple RRR nl s1, s2 2/6 sys murmur at lsb scattered mild wheeze, nl eff no le e/c/c aaox3 no jaundice, diaphoresis Current Medications Generic Name Dose Route Start Last Admin Trade Name Camachoq PRN Reason Stop Dose Admin Aspirin 81 mg 12/03/16 10:00 12/03/16 10:08 Asa - PO 81 mg DAILY WINDY Administration Atorvastatin Calcium 20 mg 12/02/16 22:00 12/02/16 21:13 Lipitor - PO 20 mg HS WINDY Administration Insulin Aspart 14 units 12/02/16 22:00 12/02/16 21:16 Novolog Vial SQ 14 units HS WINDY Administration Insulin Detemir 30 units 12/02/16 22:00 12/03/16 10:08 Levemir Vial SQ 30 units BID WINDY Administration Metformin HCl 1,000 mg 12/02/16 16:30 12/03/16 06:11 Glucophage - PO 1,000 mg BIDAC WINDY Administration Pantoprazole Sodium 40 mg 12/02/16 22:00 12/03/16 10:08 Protonix - PO 40 mg BID WINDY Administration Ramipril 2.5 mg 12/03/16 10:00 12/03/16 10:08 Altace - PO 2.5 mg DAILY WINDY Administration CBC, BMP 12/03/16 06:30 12/03/16 06:30 EKG: SR with PVC. Rightward axis. AV delay. Incomplete RBBB. Possible anterior infarct. tele: sr, occ pvcs CXR: no significant abnormalities Echo 03/2016: nl LV/EF; nl RV; mild LAE; mild EP study 03/2015: no inducible arrythmia, durable bidirectional block across CTI ( site of prior ablation) Echo 11/2014: normal LV/RV size and function, ao sclerosis, MAC LHC 08/2012: [place] 3 VD, patent SVG to [id number] jump to RPDA, patent SON to LAD a/p: 61 yo heavy smoker with h/o CAD--s/p CABG and resection of fibroelastoma , HTN, HPL, aflutter s/p ablation 2010 now with loop recorder (off eliquis due to GIB), COPD, IDDM, Lymphoma--s/p expl sternotomy and XRT in 70's who presents with recurrent presyncope. Presyncope - orthostatic vitals normal here -Most recent episode thought to be vasovagal in etiology, but cannot rule out symptomatic afib. Per EP no arrhythmia noted on loop recorder yesterday. Tele here unremarkable - EKG without ischemic changes. CE neg x 2. afib/flutter s/p ablation, followed by EP - has implantable loop recorder with brief episodes of recurrence over the year. Currently in SR off av richard blockade. - currently AC on hold until small bowel enteroscopy due to recent GIB. HTN -cont home meds HL - con't atorvastatin CAD s/p CABG - No signs of ACS or anginal sx's. - con't asa, statin, acei + tobacco - management of copd - tobacco cessation counseling cardiac rao stable for dc. will need further GIB workup as planned as outpt. before proceeding with further afib treatment/ablation
[2016-12-04 06:06] LABS: SERUM IRON 33 ug/dL (38-169); TOTAL IRON BINDING CAPACITY 350 ug/dL (250-450); UIBC 317 ug/dL (111-343)
== END 2016-12-03 13:00 | disposition home or self-care (01) | DRG 312 ==
LOC: JER 06:48 → JERBED 09:55 → J4S 11:24 → OBSVTOIN 16:13
PROVIDERS: ADMIT Internal Medicine; ATTEND Internal Medicine
DX: R55 Syncope and collapse (principal); I48.92 Unspecified atrial flutter; I25.10 Atherosclerotic heart disease of native coronary artery without angina pectoris; J44.9 Chronic obstructive pulmonary disease, unspecified; I48.91 Unspecified atrial fibrillation; I45.19 Other right bundle-branch block; I44.0 Atrioventricular block, first degree; R19.5 Other fecal abnormalities; D64.9 Anemia, unspecified; F17.210 Nicotine dependence, cigarettes, uncomplicated; I12.9 Hypertensive chronic kidney disease with stage 1 through stage 4 chronic kidney disease, or unspecified chronic kidney disease; N18.2 Chronic kidney disease, stage 2 (mild); E11.22 Type 2 diabetes mellitus with diabetic chronic kidney disease; Z95.1 Presence of aortocoronary bypass graft; Z85.47 Personal history of malignant neoplasm of testis; Z87.11 Personal history of peptic ulcer disease; Z79.4 Long term (current) use of insulin
CPT/HCPCS: 36415; 71010-TC; 80053; 81003; 81015; 82550; 82570; 82728; 83036; 83540; 83550; 83735; 83880; 84100; 84156; 84484; 85025; 85027; 85610; 85730; 86850; 86900; 86901; 93005; 93010; 99285-25; G0378

== ENCOUNTER 2017-03-18 11:56 | Emergency (ER) | payer OTHER ==
[2017-03-18 12:00] VITALS: BP 143/97; PULSE 90; TEMP 97.8; BMI 30.4
--- NOTE | 2017-03-18 13:11 | PDOC ---
History of Present Illness - General Chief Complaint: Pain Stated Complaint: INJURY TO RIGHT FOOT Time Seen by Provider: 03/18/17 12:13 History Source: Patient - History of Present Illness Occurred: reports: yesterday Lower Extremity Pain Location: right: foot Method of Injury: Yes: direct blow Past History - Past Medical History Allergies/Adverse Reactions: Allergies Allergy/AdvReac Type Severity Reaction Status Date / Time No Known Drug Allergies Allergy Verified 03/18/17 12:00 latex AdvReac Severe Rash Verified 03/18/17 12:00 TAPE AdvReac Severe Uncoded 03/18/17 12:00 Home Medications: Ambulatory Orders Multivitamin [Multivitamins] 1 each PO DAILY 10/03/12 Insulin NPL/Insulin Lispro [Humalog Mix 50-50 Pen] 60 unit SQ HS #0 ml 01/10/14 Insulin NPL/Insulin Lispro [Humalog Mix 75-25 Pen] 60 unit SQ AM #0 ml 01/10/14 Metformin HCl [Glucophage] 1,000 mg PO BID 05/28/15 Pantoprazole Sodium [Protonix] 40 mg PO BID 05/28/15 Atorvastatin Ca [Lipitor] 20 mg PO HS tablet 03/31/16 Aspirin [ASA -] 81 mg PO DAILY 04/21/16 Insulin Aspart [Novolog Flexpen] 14 unit SQ HS 12/02/16 Ramipril 2.5 mg PO DAILY 12/02/16 Anemia: Yes Asthma: No Cancer: Yes (testicular -> surgery + chemo in ) Cardiac Disorders: Yes (ATRIAL [id number] "NUCLEAR CHIP" FOR EVENING RHYTHM MONITORING) CVA: No COPD: Yes CHF: No Dementia: No Diabetes: Yes (type 1 since 31 y/o) GI Disorders: Yes (ULCER) Disorders: No HTN: Yes Hypercholesterolemia: Yes Liver Disease: No Suicide Attempt (Hx): No Seizures: No Thyroid Disease: No - Surgical History Abdominal Surgery: No Appendectomy: Yes () Cardiac Surgery: Yes (2007 triple bypass, aortic valve GROWTH REMOVED, ablaTion) Cholecystectomy: Yes (2009) Lung Surgery: No Neurologic Surgery: No Orthopedic Surgery: No - Immunization History Immunization Up to Date: Yes - Psycho/Social/Smoking Cessation Hx Anxiety: No Suicidal Ideation: No Smoking Status: Yes Smoking History: Current every day smoker Have you smoked in the past 12 months: Yes Number of Cigarettes Smoked Daily: 30 If you are a former smoker, when did you quit?: PER , PT. DENIES SMOKING Cigars Per Day: 0 Information on smoking cessation initiated: Yes 'Breaking Loose' booklet given: 03/18/17 Hx Alcohol Use: No Drug/Substance Use Hx: No Substance Use Type: None Hx Substance Use Treatment: No Review of Systems - Review of Systems Musculoskeletal: Yes: Joint Pain, Joint Swelling *Physical Exam - Vital Signs Last Vital Signs Temp Pulse Resp BP Pulse Ox 97.8 F 90 19 143/97 98 03/18/17 11:58 03/18/17 11:58 03/18/17 11:58 03/18/17 11:58 03/18/17 11:58 - Physical Exam General Appearance: Yes: Appropriately Dressed. No: Apparent Distress HEENT: positive: Normal Voice Neck: positive: Supple Respiratory/Chest: negative: Respiratory Distress Extremity: positive: Other (ecchymosis w/ minimal swelling to dorsum of distal phalanx of R great toe) Integumentary: positive: Dry, Warm Neurologic: positive: Fully Oriented, Alert, Normal Mood/Affect ED Treatment Course - RADIOLOGY Radiology Studies Ordered: Category Date Time Status FOOT-RIGHT [RAD] Stat Radiology 03/18/17 12:14 Taken Medical Decision Making - Medical Decision Making 03/18/17 13:10 62 yo M, no sig hx, p/w pain to R foot after dropping a wrench onto foot last night. Pt was wearing sneakers at the time. Able to bear weight See exam M/l foot sprain R/o fx -declines pain meds 03/18/17 13:32 XR neg for fx. Dc w/ otc meds as needed for pain *DC/Admit/Observation/Transfer Diagnosis at time of Disposition: Foot sprain Qualifiers: Encounter type: initial encounter Laterality: right Qualified Code(s): S93.601A - Unspecified sprain of right foot, initial encounter - Discharge Dispostion Disposition: HOME Condition at time of disposition: Good - Patient Instructions Printed Discharge Instructions: DI for Foot Sprain Additional Instructions: Take motrin of tylenol for pain as needed
== END 2017-03-18 13:20 | disposition home or self-care (01) ==
LOC: JERFT 11:56
DX: S93.601A Unspecified sprain of right foot, initial encounter (principal); W20.8XXA Other cause of strike by thrown, projected or falling object, initial encounter; Y93.89 Activity, other specified; Y92.89 Other specified places as the place of occurrence of the external cause; I25.10 Atherosclerotic heart disease of native coronary artery without angina pectoris; I10 Essential (primary) hypertension; F17.210 Nicotine dependence, cigarettes, uncomplicated; Z95.1 Presence of aortocoronary bypass graft; E10.9 Type 1 diabetes mellitus without complications; Z79.4 Long term (current) use of insulin; Z79.84 Long term (current) use of oral hypoglycemic drugs; E78.00 Pure hypercholesterolemia, unspecified; J44.9 Chronic obstructive pulmonary disease, unspecified; Z85.47 Personal history of malignant neoplasm of testis
CPT/HCPCS: 73630-TC-RT; 99281-25

== ENCOUNTER 2017-12-02 14:35 | Inpatient (IN) | payer OTHER ==
--- NOTE | 2017-12-02 14:43 | PDOC ---
Rapid Medical Evaluation Chief Complaint: Abscess Boil Time Seen by Provider: 12/02/17 14:39 Medical Evaluation: Allergies Allergy/AdvReac Type Severity Reaction Status Date / Time No Known Drug Allergies Allergy Verified 12/02/17 14:37 latex AdvReac Severe Rash Verified 12/02/17 14:37 TAPE AdvReac Severe Uncoded 12/02/17 14:37 12/02/17 14:39 I have performed a brief in-person evaluation of this patient. The patient presents with a chief complaint of: abscess of left scrotum x 1 week Sent by urologist for further evaluation of abscess of left scrotum that was i& D today Pertinent physical exam findings: NAD lungs clear bilateral heart s1s2 abdomen non tender : left scrotum, swelling bleeding with gauze in place I have ordered the following: saline lock, labs ordered The patient will proceed to the ED for further evaluation. Discharge Disposition - Referrals Referrals: Ko Sullivan MD [Primary Care Provider] - - Patient Instructions - Post Discharge Activity
[2017-12-02 15:42] LABS: BASO % 1.2 % (0-2.0); EOS % 2.1 % (0-4.5); HEMATOCRIT 37.4 % (35.4-49); HEMOGLOBIN 12.3 GM/dL (11.7-16.9); LYMPH % 12.4 % (8-40); MCH 26.7 pg (25.7-33.7); MEAN PLT VOLUME 7.8 fl (7.5-11.1); NEUT % 77.3 % (42.8-82.8); PLATELET COUNT 239 K/MM3 (134-434); RBC 4.61 M/mm3 (4.00-5.60); RDW 16.2 % (11.9-15.9); WHITE BLOOD COUNT 8.7 K/mm3 (4.0-10.0)
--- NOTE | 2017-12-02 15:52 | PDOC ---
History of Present Illness - General Chief Complaint: Abscess Boil Stated Complaint: ABSCESS Time Seen by Provider: 12/02/17 14:39 History Source: Patient Exam Limitations: No Limitations - History of Present Illness Initial Comments: CHIEF COMPLAINT: 62 y/o afebrile male with PMH a-fib (on eliquis), IDDM, HTN, GERD, testicular cancer (right testicle removed 40 years ago) sent over for admission for scrotal abscess. HISTORY OF PRESENT ILLNESS: The patient states 7 days ago developed a small bump on his left testicle. He states 2 days later (tuesday 11/28) it was much large and painful so he went to see his PMD, Dr. Sullivan, who sent him to Dr. Harry, who I&Ded the abcess and started him on Keflex. He states the testicle continued to get worse even while on the abx, so he went back to Dr. Harry today who I&Ded it again and sent him here for admission. Dr. Sullivan is aware and accepts admission. The patient denies fever, streaking, abdominal pain, dysuria, hematuria. Request is for Dr. Swanson consult. Vital signs on arrival are within normal limits. REVIEW OF SYSTEMS: GENERAL/CONSTITUTIONAL: No fever/chills. No weakness. No weight change. HEAD, EYES, EARS, NOSE AND THROAT: No change in vision. No ear pain or discharge. No sore throat. CARDIOVASCULAR: No chest pain or shortness of breath. RESPIRATORY: No cough, wheezing, or hemoptysis. GASTROINTESTINAL: No abd pain, nausea, vomiting, diarrhea. GENITOURINARY: +left testicular swelling and pain. No dysuria, frequency, or change in urination. MUSCULOSKELETAL: No joint or muscle swelling or pain. No neck or back pain. SKIN: No rash or easy bruising. NEUROLOGIC: No headache, vertigo, loss of consciousness, or loss of sensation. PHYSICAL EXAM: GENERAL: The patient is awake, alert, and fully oriented, in no acute distress. He is a well appearing, pleasant, ambulatory male in NAD or obvious discomfort. ABDOMEN: Soft, non-distended, non-tender even to deep palpation, no hepatomegaly or splenomegaly, no masses. TESTICLES: Right testicle missing. Left testicular swelling. TTP of posterior left testicle, where there is erythema and open, draining wound. No streaking. No signs of Anabel's gangrene EXTREMITIES: Normal range of motion, no edema. NEUROLOGICAL: Normal speech, normal gait. CN II-XII grossly intact. SKIN: Warm, dry, normal turgor, no rashes or lesions noted. Past History - Past Medical History Allergies/Adverse Reactions: Allergies Allergy/AdvReac Type Severity Reaction Status Date / Time No Known Drug Allergies Allergy Verified 12/02/17 14:37 latex AdvReac Severe Rash Verified 12/02/17 14:37 TAPE AdvReac Severe Uncoded 12/02/17 14:37 Home Medications: Ambulatory Orders Apixaban [Eliquis] 5 mg PO BID 12/02/17 Ciprofloxacin HCl [Cipro] 0 mg PO DAILY 12/02/17 Insulin Glargine,Hum.rec.anlog [Toujeo Solostar] 80 unit SQ DAILY 12/02/17 Insulin Lispro [Humalog] 100 unit SQ ASDIR 12/02/17 Metformin HCl [Metformin HCl ER] 1,000 mg PO BID 12/02/17 Pantoprazole Sodium 40 mg PO DAILY 12/02/17 Ramipril 5 mg PO DAILY 12/02/17 Sitagliptin Phosphate [Januvia] 100 mg PO DAILY 12/02/17 Anemia: Yes Asthma: No Cancer: Yes (testicular -> surgery + chemo in ) Cardiac Disorders: Yes (ATRIAL [id number] "NUCLEAR CHIP" FOR EVENING RHYTHM MONITORING) CVA: No COPD: Yes CHF: No Dementia: No Diabetes: Yes (type 1 since 31 y/o) GI Disorders: Yes (ULCER) Disorders: No HTN: Yes Hypercholesterolemia: Yes Liver Disease: No Seizures: No Thyroid Disease: No - Surgical History Abdominal Surgery: No Appendectomy: Yes () Cardiac Surgery: Yes (2007 triple bypass, aortic valve GROWTH REMOVED, ablaTion) Cholecystectomy: Yes (2009) Lung Surgery: No Neurologic Surgery: No Orthopedic Surgery: No - Immunization History Immunization Up to Date: Yes - Suicide/Smoking/Psychosocial Hx Smoking Status: Yes Smoking History: Current every day smoker Have you smoked in the past 12 months: Yes Number of Cigarettes Smoked Daily: 60 If you are a former smoker, when did you quit?: PER , PT. DENIES SMOKING Cigars Per Day: 0 Information on smoking cessation initiated: Yes 'Breaking Loose' booklet given: 12/02/17 Hx Alcohol Use: No Drug/Substance Use Hx: No Substance Use Type: None Hx Substance Use Treatment: No *Physical Exam - Vital Signs Last Vital Signs Temp Pulse Resp BP Pulse Ox 98.1 F 82 18 161/80 100 12/02/17 14:39 12/02/17 14:39 12/02/17 14:39 12/02/17 14:39 12/02/17 14:39 ED Treatment Course - LABORATORY CBC & Chemistry Diagram: 12/02/17 15:15 12/02/17 15:15 - ADDITIONAL ORDERS Additional order review: 12/02/17 15:15 RBC 4.61 MCV 81.0 MCHC 33.0 RDW 16.2 H MPV 7.8 Neutrophils % 77.3 Lymphocytes % 12.4 D Monocytes % 7.0 Eosinophils % 2.1 Basophils % 1.2 Medical Decision Making - Medical Decision Making A/P: 62 y/o afebrile male, insulin dependent diabetic on Eliquis for A-fib here for admission for scrotal abscess. Plan is as follows: 1. Labs 2. Scrotal ultrasound 3. IV levaquin *DC/Admit/Observation/Transfer Diagnosis at time of Disposition: Scrotal abscess - Discharge Dispostion Condition at time of disposition: Stable Admit: Yes - Referrals Referrals: Ko Sullivan MD [Primary Care Provider] - - Patient Instructions - Post Discharge Activity
[2017-12-02 16:11] LABS: INR 1.16 (0.82-1.09); PROTHROMBIN TIME (PATIENT) 13.1 SEC (9.98-11.88)
[2017-12-02 16:14] LABS: ACTIVATED PTT 33.4 SECONDS (26.9-34.4)
[2017-12-02 16:21] LABS: ALBUMIN 3.2 g/dl (3.4-5.0); ALK PHOS 84 U/L (45-117); ANION GAP 11 (8-16); BILIRUBIN,TOTAL 0.3 mg/dL (0.2-1.0); BLOOD UREA NITROGEN 20 mg/dL (7-18); CALCIUM 8.4 mg/dL (8.5-10.1); CHLORIDE 105 mmol/L (98-107); CO2 24 mmol/L (21-32); CREATININE 1.2 mg/dL (0.7-1.3); GLUCOSE,RANDOM 258 mg/dL (74-106); POTASSIUM 4.5 mmol/L (3.5-5.1); SGOT/AST 19 U/L (15-37); SGPT/ALT 28 U/L (12-78); SODIUM 140 mmol/L (136-145); TOT PROT 6.7 g/dl (6.4-8.2)
--- NOTE | 2017-12-02 17:39 | HP ---
Admitting History and Physical - Admission Chief Complaint: 62 y.o M was sent to ER by Dr Harry urologist due to worsening edema of the patient's scrotum despite oral antibiotics-Keflex/ Cipro.. 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 No: Alzheimer's, CVA, Dementia, Migraine, Multiple Sclerosis, Peripheral Neuropathy, Parkinson's, Seizure, TIA, Other Cardiovascular: Yes: AFIB, CAD, HTN, Hyperlipdemia, Other (A flutter) Pulmonary: Yes: COPD Hepatobiliary: Yes: Cholecystitis (Cholecystectomy) Renal/: Yes: Renal Inusuff Endocrine: Yes: Diabetes Mellitus - Past Surgical History Past Surgical History: Yes: CABG, Cholecystectomy - Smoking History Smoking history: Current every day smoker Have you smoked in the past 12 months: Yes Aproximately how many cigarettes per day: 60 If you are a former smoker, when did you quit?: PER , PT. DENIES SMOKING - Alcohol/Substance Use Hx Alcohol Use: No - Social History History of Recent Travel: No Home Medications - Allergies Allergies/Adverse Reactions: Allergies Allergy/AdvReac Type Severity Reaction Status Date / Time No Known Drug Allergies Allergy Verified 12/02/17 14:37 latex AdvReac Severe Rash Verified 12/02/17 14:37 TAPE AdvReac Severe Uncoded 12/02/17 14:37 - Home Medications Home Medications: Ambulatory Orders Apixaban [Eliquis] 5 mg PO BID 12/02/17 Ciprofloxacin HCl [Cipro] 0 mg PO DAILY 12/02/17 Insulin Glargine,Hum.rec.anlog [Toujeferson Solostar] 80 unit SQ DAILY 12/02/17 Insulin Lispro [Humalog] 100 unit SQ ASDIR 12/02/17 Metformin HCl [Metformin HCl ER] 1,000 mg PO BID 12/02/17 Pantoprazole Sodium 40 mg PO DAILY 12/02/17 Ramipril 5 mg PO DAILY 12/02/17 Sitagliptin Phosphate [Januvia] 100 mg PO DAILY 12/02/17 Family Disease History - Family Disease History Family Disease History: Diabetes: Grandparent, Heart Disease: Father Review of Systems - Review of Systems Constitutional: denies: Chills, Diaphoresis Eyes: denies: Blurred Vision HENT: denies: Difficult Swallowing, Ear Discharge, Gingival Bleeding Neck: denies: Decreased ROM, Lumps, Pain on Movement Cardiovascular: denies: Chest Pain, Edema, Palpitations Respiratory: reports: Cough Gastrointestinal: reports: Diarrhea. denies: Abdominal Pain, Bloating, Vomiting , Vomiting Blood Genitourinary: reports: Testicular Pain, Testicular Swelling (scrotum). denies : Burning, Discharge Musculoskeletal: denies: Back Pain, Muscle Cramps Integumentary: reports: Erythema (scrotum, minimal drainage) Neurological: denies: Change in LOC, Change in Speech, Confusion Endocrine: denies: Excessive Sweating, Flushing Hematology/Lymphatic: denies: Easily Bruised, Excessive Bleeding Psychiatric: reports: No Symptoms Physical Examination Vital Signs: Vital Signs Temperature 98.1 F 12/02/17 14:39 Pulse Rate 82 12/02/17 14:39 Respiratory Rate 18 12/02/17 14:39 Blood Pressure 161/80 12/02/17 14:39 O2 Sat by Pulse Oximetry (%) 100 12/02/17 14:39 Constitutional: Yes: No Distress, Calm Eyes: Yes: Conjunctiva Clear, EOM Intact HENT: Yes: Atraumatic, Normocephalic Neck: Yes: Supple, Trachea Midline Cardiovascular: Yes: Regular Rate and Rhythm, Murmur, S1, Varicosities. No: Bradycardia, Tachycardia, JVD Respiratory: Yes: Regular. No: Accessory Muscle Use, SOB Gastrointestinal: Yes: Normal Bowel Sounds, Soft, Other (well healed scars). No : Pulsatile Mass ...Rectal Exam: Yes: Deferred Renal/: Yes: Scrotal Edema. No: Anuria, Bladder Distention Breast(s): Yes: WNL Musculoskeletal: No: Back Pain, Joint Stiffness, Joint Swelling Extremities: No: Amputation, Calf Tenderness, Cold, Cyanosis Edema: No Peripheral Pulses WNL: Yes Neurological: Yes: Alert, Oriented. No: Aphasia, Asterixis, Ataxia, Confusion, Seizure, Tremors, Unresponsive, Unsteady Gait, Weakness ...Motor Strength: WNL Psychiatric: Yes: WNL Labs: CBC, BMP 12/02/17 15:15 12/02/17 15:15 Imaging - Results Ultrasound: Pending Problem List - Problems (1) Scrotal abscess Assessment/Plan: IV ABX ID and f/u Code(s): N49.2 - INFLAMMATORY DISORDERS OF SCROTUM (2) DM type 2 (diabetes mellitus, type 2) Assessment/Plan: Levemir reduced dose to 40 units and Novolog as per sliding scale. Follow BGM Follow the diet Code(s): E11.9 - TYPE 2 DIABETES MELLITUS WITHOUT COMPLICATIONS Qualifiers: Chronic kidney disease stage: stage 2 (mild)
--- NOTE | 2017-12-02 17:55 | CON.GU ---
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 No: Alzheimer's, CVA, Dementia, Migraine, Multiple Sclerosis, Peripheral Neuropathy, Parkinson's, Seizure, TIA, Other Cardio/Vascular: Yes: AFIB, CAD, HTN, Hyperlipdemia, Other (A flutter) Pulmonary: Yes: COPD Hepatobiliary: Yes: Cholecystitis (Cholecystectomy) Renal/: Yes: Renal Inusuff Endocrine: Yes: Diabetes Mellitus - Past Surgical History Past Surgical History: Yes: CABG, Cholecystectomy - Alcohol/Substance Use Hx Alcohol Use: No - Smoking History Smoking history: Current every day smoker Have you smoked in the past 12 months: Yes Aproximately how many cigarettes per day: 60 If you are a former smoker, when did you quit?: PER , PT. DENIES SMOKING - Social History History of Recent Travel: No Home Medications - Allergies Allergies/Adverse Reactions: Allergies Allergy/AdvReac Type Severity Reaction Status Date / Time No Known Drug Allergies Allergy Verified 12/02/17 14:37 latex AdvReac Severe Rash Verified 12/02/17 14:37 TAPE AdvReac Severe Uncoded 12/02/17 14:37 - Home Medications Home Medications: Ambulatory Orders Apixaban [Eliquis] 5 mg PO BID 12/02/17 Ciprofloxacin HCl [Cipro] 0 mg PO DAILY 12/02/17 Insulin Glargine,Hum.rec.anlog [Joann Edwards] 80 unit SQ DAILY 12/02/17 Insulin Lispro [Humalog] 100 unit SQ ASDIR 12/02/17 Metformin HCl [Metformin HCl ER] 1,000 mg PO BID 12/02/17 Pantoprazole Sodium 40 mg PO DAILY 12/02/17 Ramipril 5 mg PO DAILY 12/02/17 Sitagliptin Phosphate [Januvia] 100 mg PO DAILY 12/02/17 Family Disease History - Family Disease History Family Disease History: Diabetes: Grandparent, Heart Disease: Father Review of Systems - Review of Systems Genitourinary: reports: Testicular Mass Physical Exam- Vital Signs: Vital Signs Temperature 98.1 F 12/02/17 14:39 Pulse Rate 82 12/02/17 14:39 Respiratory Rate 18 12/02/17 14:39 Blood Pressure 161/80 12/02/17 14:39 O2 Sat by Pulse Oximetry (%) 100 12/02/17 14:39 Renal/: Yes: Scrotal Edema. No: Bladder Distention, CVA Tenderness - Left, CVA Tenderness - Right Scrotum: Yes: Edema (small skin nodule, debrided) Labs: CBC, BMP 12/02/17 15:15 12/02/17 15:15 Problem List - Problems (1) Scrotal abscess Assessment/Plan: I+D'd this afternoon. iv abx. imaging. Code(s): N49.2 - INFLAMMATORY DISORDERS OF SCROTUM
[2017-12-02 18:51] VITALS: BMI 31.4
[2017-12-02 20:24] LABS: URINE APPEARANCE CLEAR; URINE BILIRUBIN NEGATIVE (<2.0 mg/dL); URINE BLOOD NEGATIVE (NEGATIVE); URINE COLOR YELLOW; URINE GLUCOSE (UA) NEGATIVE (NEGATIVE); URINE KETONE NEGATIVE (NEGATIVE); URINE LEUK ESTERASE NEGATIVE (NEGATIVE); URINE NITRITE NEGATIVE (NEGATIVE); URINE UROBILINOGEN NEGATIVE mg/dL (0.2-1.0)
[2017-12-02 20:26] LABS: URINE PROTEIN 2+ (NEGATIVE)
[2017-12-02 20:29] LABS: URINE MUCUS RARE
[2017-12-02] MEDS ORDERED: INSULIN (NOVOLOG) ASPART 100 UNITS/ML 10ML VIAL ONE (21:39)
[2017-12-02] MEDS ORDERED: PIPERACILLIN/TAZOB 3.375 GM 3.375 GM in DEXTROSE 5%-WATER - 250 ML IVPB SCH (22:00)
[2017-12-03] MEDS: INSULIN DETEMIR 100 UNITS/ML MDV SQ SCH ×2 (00:20→21:37)
[2017-12-03] MEDS: INSULIN SLIDING SCALE (NOVOLOG) 1 VIAL SQ SCH ×5 (00:20→21:36)
[2017-12-03] MEDS: APIXABAN 5 MG TABLET PO SCH ×3 (00:21→21:38)
[2017-12-03] MEDS: PIPERACILLIN/TAZOB 3.375 GM 3.375 GM in DEXTROSE 5%-WATER - 50 ML IVPB SCH ×2 (01:49→08:52)
[2017-12-03] MEDS: sitaGLIPtin PHOSPHATE 100 MG TABLET (FP) PO SCH (06:58)
[2017-12-03 07:35] LABS: BASO % 0.9 % (0-2.0); EOS % 2.6 % (0-4.5); HEMATOCRIT 35.6 % (35.4-49); HEMOGLOBIN 11.6 GM/dL (11.7-16.9); LYMPH % 14.3 % (8-40); MCH 26.4 pg (25.7-33.7); MCHC 32.6 g/dl (32.0-35.9); MEAN CELL VOLUME 80.9 fl (80-96); MEAN PLT VOLUME 7.8 fl (7.5-11.1); MONO % 8.3 % (3.8-10.2); NEUT % 73.9 % (42.8-82.8); PLATELET COUNT 231 K/MM3 (134-434); WHITE BLOOD COUNT 6.8 K/mm3 (4.0-10.0)
[2017-12-03 07:38] LABS: ALK PHOS 76 U/L (45-117); ANION GAP 10 (8-16); BILIRUBIN,TOTAL 0.5 mg/dL (0.2-1.0); BLOOD UREA NITROGEN 18 mg/dL (7-18); CALCIUM 8.3 mg/dL (8.5-10.1); CHLORIDE 104 mmol/L (98-107); CO2 27 mmol/L (21-32); GLUCOSE,RANDOM 140 mg/dL (74-106); MAGNESIUM 1.9 mg/dL (1.8-2.4); PHOSPHOROUS 3.6 mg/dL (2.5-4.9); POTASSIUM 4.3 mmol/L (3.5-5.1); SGOT/AST 15 U/L (15-37); SGPT/ALT 25 U/L (12-78); SODIUM 141 mmol/L (136-145); TOT PROT 6.1 g/dl (6.4-8.2)
[2017-12-03] MEDS ORDERED: PT OWN MED DRAWER 7, Y5N ONE ×4 (08:41→21:32)
[2017-12-03] MEDS: RAMIPRIL 5 MG CAPSULE (FP) PO SCH (09:38)
[2017-12-03] MEDS: PANTOPRAZOLE 40 MG TABLET (FP) PO SCH (09:39)
--- NOTE | 2017-12-03 09:44 | PN ---
Progress Note (short form) - Note Progress Note: nelli is feeling better this morning. still with peoscrotal and leg edema continue ABX Scrotal US reviewed, no more collection seen Problem List - Problems (1) Scrotal abscess Code(s): N49.2 - INFLAMMATORY DISORDERS OF SCROTUM
--- NOTE | 2017-12-03 10:25 | CONSULT ---
Consult Consult Specialty:: Cardiology Referred by:: Medicine Reason for Consultation:: History of CABG and ILR - History of Present Illness Chief Complaint: Scrotal edema History of Present Illness: 62 yo male known to Dr. Tylre last seen in office about 1 month ago HTN, Dyslipidemia, DM type 2, CAD s/p CABG x 3 (SVG to OM1-RPDA, SON to LAD Underwent ILR placement last year in the setting of unexplained syncope and AF detection. Last interrogation was 11/02/2017 for AF alert. Found to have NSR with PAC but prior interrogations confirmed PAF (7%) Was put back on oral anticoagulation (Apixaban) and is now tolerating without GI bleeding. Now admitted for scrotal edema/scrotal wall abcess being treated with Abx. 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 No: Alzheimer's, CVA, Dementia, Migraine, Multiple Sclerosis, Peripheral Neuropathy, Parkinson's, Seizure, TIA, Other Cardio/Vascular: Yes: AFIB, CAD, HTN, Hyperlipdemia, Other (A flutter) Pulmonary: Yes: COPD Hepatobiliary: Yes: Cholecystitis (Cholecystectomy) Renal/: Yes: Renal Inusuff Endocrine: Yes: Diabetes Mellitus - Past Surgical History Past Surgical History: Yes: CABG, Cholecystectomy - Alcohol/Substance Use Hx Alcohol Use: No - Smoking History Smoking history: Former smoker Have you smoked in the past 12 months: Yes Aproximately how many cigarettes per day: 60 If you are a former smoker, when did you quit?: 1 month ago - Social History History of Recent Travel: No Home Medications - Allergies Allergies/Adverse Reactions: Allergies Allergy/AdvReac Type Severity Reaction Status Date / Time No Known Drug Allergies Allergy Verified 12/02/17 14:37 latex AdvReac Severe Rash Verified 12/02/17 14:37 TAPE AdvReac Severe Uncoded 12/02/17 14:37 - Home Medications Home Medications: Ambulatory Orders Apixaban [Eliquis] 5 mg PO BID 12/02/17 Ciprofloxacin HCl [Cipro] 0 mg PO DAILY 12/02/17 Insulin Glargine,Hum.rec.anlog [Touarao Solostar] 80 unit SQ DAILY 12/02/17 Insulin Lispro [Humalog] 100 unit SQ ASDIR 12/02/17 Metformin HCl [Metformin HCl ER] 1,000 mg PO BID 12/02/17 Pantoprazole Sodium 40 mg PO DAILY 12/02/17 Ramipril 5 mg PO DAILY 12/02/17 Sitagliptin Phosphate [Januvia] 100 mg PO DAILY 12/02/17 Family Disease History - Family Disease History Family Disease History: Diabetes: Grandparent, Heart Disease: Father Review of Systems - Review of Systems Constitutional: reports: No Symptoms Eyes: reports: No Symptoms HENT: reports: No Symptoms Neck: reports: No Symptoms Cardiovascular: reports: No Symptoms Respiratory: reports: No Symptoms Gastrointestinal: reports: No Symptoms Genitourinary: reports: Other (Scrotal edema) Musculoskeletal: reports: No Symptoms Integumentary: reports: Erythema Neurological: reports: No Symptoms Physical Exam Vital Signs: Vital Signs Temperature 98.1 F 12/03/17 09:00 Pulse Rate 70 12/03/17 09:00 Respiratory Rate 18 12/03/17 09:00 Blood Pressure 139/70 12/03/17 09:00 O2 Sat by Pulse Oximetry (%) 99 12/03/17 09:00 Constitutional: Yes: No Distress, Calm Eyes: Yes: WNL HENT: Yes: WNL Neck: Yes: WNL Cardiovascular: Yes: Regular Rate and Rhythm, Murmur (Soft systolic murmur at RUSB) Respiratory: Yes: CTA Bilaterally Gastrointestinal: Yes: WNL Extremities: Yes: WNL Edema: Yes Edema: LLE: 2+, RLE: 2+ Labs: CBC, BMP 12/03/17 06:00 12/03/17 06:00 Imaging - Results Other: Report Reviewed (Echo: 03/2016 Mild , normal biventricular size and function, no significant valvular abnormlaity seen) Assessment/Plan 62 yo male with CV issues that include ASCVD s/p CABG and AF Admitted with scrotal edema/cellulitis 1) CAD -Prior CABG -Stable at this time -No cardiovascular complaints -Not on asa as on NOAC -Continue ACEi 2) AF -ILR confirmed AF -Tolerating Apixaban without bleeding -Continue Apixaban at current dosing 3) Scrotal edema -Scrotal US consistent with cellulitis -Abx Tx as per -Do not think this is CHF related 4) Diabetes -Management as per PMD
[2017-12-03] MEDS ORDERED: INSULIN (NOVOLOG) ASPART 100 UNITS/ML 10ML VIAL ONE (11:02)
--- NOTE | 2017-12-03 12:49 | PN ---
Physical Exam: SUBJECTIVE: Patient seen and examined at the bedside. present. OBJECTIVE: Bilateral lower ext edema right> left with discoloration on the right leg. 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 Will doppler. Pt was supposed to have stool studies done outpatient, did not get it done that were ordered last year (has a hand written prescription dated 09/02/2017). Pt reports still having loose water stools will order: stool culture, stool cdiff Vital Signs Period Temp Pulse Resp BP Sys/Perez Pulse Ox Last 24 Hr 98.1 F-98.4 F 70-82 18-20 139-161/66-92 94-100 GENERAL: The patient is awake, alert, and fully oriented, in no acute distress. HEAD: Normal with no signs of trauma. EYES: PERRL, extraocular movements intact, sclera anicteric, conjunctiva clear. No ptosis. ENT: Ears normal, nares patent, oropharynx clear without exudates, moist mucous membranes. NECK: Trachea midline, full range of motion, supple. LUNGS: Breath sounds equal, diminished at the bases HEART: Regular rate and rhythm ABDOMEN: Soft, not distended EXTREMITIES: Bilateral lower ext edema right> left with discoloration on the right leg with old scabs NEUROLOGICAL: Normal speech, gait not observed. PSYCH: Normal mood, normal affect. Laboratory Results - last 24 hr 12/02/17 12/02/17 12/02/17 15:15 15:15 15:15 WBC 8.7 D RBC 4.61 Hgb 12.3 Hct 37.4 MCV 81.0 MCH 26.7 MCHC 33.0 RDW 16.2 H Plt Count 239 D MPV 7.8 Neutrophils % 77.3 Lymphocytes % 12.4 D Monocytes % 7.0 Eosinophils % 2.1 Basophils % 1.2 PT with INR 13.10 H INR 1.16 H PTT (Actin FS) 33.4 Sodium 140 Potassium 4.5 Chloride 105 Carbon Dioxide 24 Anion Gap 11 BUN 20 H Creatinine 1.2 Creat Clearance w eGFR > 60 POC Glucometer Random Glucose 258 H D Hemoglobin A1c % Calcium 8.4 L Phosphorus Magnesium Total Bilirubin 0.3 AST 19 ALT 28 Alkaline Phosphatase 84 Total Protein 6.7 Albumin 3.2 L Urine Color Urine Appearance Urine pH Ur Specific [place] Urine Protein Urine Glucose (UA) Urine Ketones Urine Blood Urine Nitrite Urine Bilirubin Urine Urobilinogen Ur Leukocyte Esterase Urine WBC (Auto) Urine RBC (Auto) Urine Mucus 12/02/17 12/03/17 12/03/17 19:45 00:19 06:00 WBC 6.8 RBC 4.40 Hgb 11.6 L Hct 35.6 MCV 80.9 MCH 26.4 MCHC 32.6 RDW 16.0 H Plt Count 231 MPV 7.8 Neutrophils % 73.9 Lymphocytes % 14.3 Monocytes % 8.3 Eosinophils % 2.6 Basophils % 0.9 PT with INR INR PTT (Actin FS) Sodium Potassium Chloride Carbon Dioxide Anion Gap BUN Creatinine Creat Clearance w eGFR POC Glucometer 248 Random Glucose Hemoglobin A1c % Calcium Phosphorus Magnesium Total Bilirubin AST ALT Alkaline Phosphatase Total Protein Albumin Urine Color Yellow Urine Appearance Clear Urine pH 6.0 Ur Specific [place] 1.020 Urine Protein 2+ H Urine Glucose (UA) Negative Urine Ketones Negative Urine Blood Negative Urine Nitrite Negative Urine Bilirubin Negative Urine Urobilinogen Negative Ur Leukocyte Esterase Negative Urine WBC (Auto) <1 Urine RBC (Auto) 1 Urine Mucus Rare 12/03/17 12/03/17 12/03/17 06:00 06:00 06:57 WBC RBC Hgb Hct MCV MCH MCHC RDW Plt Count MPV Neutrophils % Lymphocytes % Monocytes % Eosinophils % Basophils % PT with INR INR PTT (Actin FS) Sodium 141 Potassium 4.3 Chloride 104 Carbon Dioxide 27 Anion Gap 10 BUN 18 Creatinine 1.0 Creat Clearance w eGFR > 60 POC Glucometer 125 Random Glucose 140 H D Hemoglobin A1c % 9.8 H D Calcium 8.3 L Phosphorus 3.6 Magnesium 1.9 Total Bilirubin 0.5 D AST 15 D ALT 25 Alkaline Phosphatase 76 Total Protein 6.1 L Albumin 3.0 L Urine Color Urine Appearance Urine pH Ur Specific [place] Urine Protein Urine Glucose (UA) Urine Ketones Urine Blood Urine Nitrite Urine Bilirubin Urine Urobilinogen Ur Leukocyte Esterase Urine WBC (Auto) Urine RBC (Auto) Urine Mucus 12/03/17 10:59 WBC RBC Hgb Hct MCV MCH MCHC RDW Plt Count MPV Neutrophils % Lymphocytes % Monocytes % Eosinophils % Basophils % PT with INR INR PTT (Actin FS) Sodium Potassium Chloride Carbon Dioxide Anion Gap BUN Creatinine Creat Clearance w eGFR POC Glucometer 250 Random Glucose Hemoglobin A1c % Calcium Phosphorus Magnesium Total Bilirubin AST ALT Alkaline Phosphatase Total Protein Albumin Urine Color Urine Appearance Urine pH Ur Specific [place] Urine Protein Urine Glucose (UA) Urine Ketones Urine Blood Urine Nitrite Urine Bilirubin Urine Urobilinogen Ur Leukocyte Esterase Urine WBC (Auto) Urine RBC (Auto) Urine Mucus Active Medications Generic Name Dose Route Start Last Admin Trade Name Zia PRN Reason Stop Dose Admin Apixaban 5 mg 12/02/17 22:00 12/03/17 09:38 Eliquis - PO 5 mg BID WINDY Administration Insulin Aspart 1 vial 12/02/17 22:00 12/03/17 11:02 Novolog Vial Sliding Scale - SQ 2 units ACHS WINDY Administration Protocol Insulin Detemir 40 units 12/02/17 22:00 12/03/17 00:20 Levemir Vial SQ 40 units HS WINDY Administration Metformin HCl 1,000 mg 12/02/17 17:45 12/03/17 06:58 Glucophage Xr - PO 1,000 mg BIDAC WINDY Administration Pantoprazole Sodium 40 mg 12/03/17 10:00 12/03/17 09:39 Protonix - PO 40 mg DAILY WINDY Administration Piperacillin Sod/Tazobactam Sod 3.375 gm 12/02/17 22:00 Zosyn 3.375gm Ivpb (Pre-Docked) IVPB TID WINDY Protocol Ramipril 5 mg 12/03/17 10:00 12/03/17 09:38 Altace - PO 5 mg DAILY WINDY Administration Sitagliptin Phosphate 100 mg 12/03/17 07:00 12/03/17 06:58 Januvia - PO 100 mg ACBK WINDY Administration ASSESSMENT/PLAN: Patient is a 62 year old male with a significant past medical history of hypertension, dyslipidemia, diabetes, CAD s/p CABG, underwent ILR placement last year in the setting of unexplained syncope and AF detection (last interrogation was on 10/2017 and was found to have NSR with PACs) COPD (not on home O2), afib on eliquis, testicular cancer s/p orichectomy, s/p chemo and RTx finished 1977, CABG and cholecystectomy. He presents to the ED on 12/02/2017 for scrotal edema/scrotal wall abscess being treated with Zosyn. On exam patient was further noted to have bilateral lower ext pitting edema (+1- 2) and was sent for a doppler of both LE. 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 ID: Scrotal cellulitis, acute Scrotal u/s suggests cellulitis, no mass or torsion seen On Zosyn (12/02->12/03), now on Ceftaroline per ID Monitor fevers, labs, vitals ID following Noted to have sero sang drainage of abscess with mild tenderness to scrotum Monitor bleeding in the setting of a/c with daily CBC Vascular Bilateral lower ext edema Ruled out for DVT Patient is already anticoagulated with eliquis Apply bacitracin to right lower anterior abrasion Endocrine Diabetes On Metformin, Januvia, NOvolog and Levemir 40 units BGMs ac/hs Cardiology Afib, chronic On eliquis 5mg BID Hypertension, chronic On Altace F.E.N. Fluids: Tolerating PO Electrolytes: monitor daily Nutrition: diabetic diet Prophy: DVT: on Eliquis GI: Protonix daily Disposition: full code.
--- NOTE | 2017-12-03 15:27 | PN ---
Progress Note (short form) - Note Progress Note: ID consult dictated imp/reccd scrotal abscess started as a pimple last Tuesday saw urologist Tuesday and had it drained took augmentin didnot improved went back Tuesday and had it drained again started having bleeding from the wound and came to ED never had fever, no dysuria never has an abscess before ?MRSA infection diabetic history of testicular cancer age 26 had right orchiectomy at the time CAD will switch to ceftaroline to cover enterics and mrsa f/u cultures Problem List - Problems (1) Scrotal abscess Code(s): N49.2 - INFLAMMATORY DISORDERS OF SCROTUM (2) DM type 2 (diabetes mellitus, type 2) Code(s): E11.9 - TYPE 2 DIABETES MELLITUS WITHOUT COMPLICATIONS Qualifiers: Chronic kidney disease stage: stage 2 (mild) (3) CAD (coronary artery disease) Code(s): I25.10 - ATHSCL HEART DISEASE OF [place] CORONARY ARTERY W/O ANG PCTRS
[2017-12-03] MEDS: BACITRACIN 15 GM TUBE TOPICAL OINTMENT TP SCH ×2 (15:32→21:39)
[2017-12-03] MEDS: PIPERACILLIN/TAZOB 3.375 GM/50 ML PRE-DOCKED IVPB SCH (15:39)
--- NOTE | 2017-12-03 16:23 | CONS ---
INFECTIOUS DISEASE CONSULTATION DATE OF CONSULTATION: DATE OF DICTATION: 12/03/2017 Requested by the hospitalist service. This is a 62-year-old man who last Tuesday developed a pimple on the posterior aspect of his scrotum. It became swollen and painful. On Tuesday, he saw the urologist who drained it in his office. He was treated with Augmentin. The pain and swelling persisted. He followed up with the urologist again on Tuesday. He had the abscess drained again and he developed significant bleeding and was advised admission. He denies any fevers or chills. He has never had anything like this before. It started as a pustule. There is no associated dysuria. PAST MEDICAL HISTORY: Notable for a history of syncope in the past, atrial fibrillation, coronary artery disease, hypertension, hyperlipidemia, COPD, renal insufficiency, and diabetes. SURGICAL HISTORY: He has had a bypass x3. He has had a cholecystectomy. He had a right orchiectomy at age 26 for testicular cancer, as well. SOCIAL HISTORY: He is a former smoker. There is no history of any substance use. ALLERGIES: He is allergic to LATEX and TAPE. MEDICATIONS AT HOME: Include Eliquis, insulin, metformin, pantoprazole, ramipril, and Januvia. FAMILY HISTORY: Notable for diabetes in a grandparent and heart disease in his father. REVIEW OF SYSTEMS: He is feeling better. He still has some scrotal discomfort. He has had no dysuria. No fevers or chills. PHYSICAL EXAMINATION: General: A pleasant main in no acute distress. Vital signs: Temp is 97.9, pulse of 70, blood pressure 142/85, respiratory rate is 18. He is saturating 99%. HEENT: He is normocephalic. His eyes are anicteric. Neck: Supple. Lungs: Clear to auscultation. Heart: Regular rate and rhythm. Abdomen: Soft. Nontender. Genitourinary: On the posterior aspect of his scrotum, he has a small subcutaneous incision which was the site of the superficial abscess. He has had a scrotal ultrasound done that shows scrotal skin thickening suspicious for cellulitis with no evidence of any abscesses or masses. 1. In summary, this is a 62-year-old man with a scrotal abscess that started as a pimple, which would raise the question of could this be MRSA, and he did not improve on Augmentin. He has no dysuria to suggest a urinary tract focus. This appears to be more skin related. Would switch to ceftaroline to cover enterics and MRSA. cultures which are all pending at this time. 2. History of diabetes. 3. History of testicular cancer at age 26. Status post right orchiectomy. 4. Coronary artery disease. MAGALI INMAN M.D. [id number]
[2017-12-03] MEDS: CEFTAROLINE FOSAMIL ACETATE 600 MG in DEXTROSE 5%-WATER - 100 ML IVPB SCH ×2 (17:03→21:41)
[2017-12-04] MEDS ORDERED: PT OWN MED DRAWER 7, Y5N ONE ×5 (06:07→18:04)
[2017-12-04] MEDS: sitaGLIPtin PHOSPHATE 100 MG TABLET (FP) PO SCH (06:16)
[2017-12-04] MEDS: INSULIN SLIDING SCALE (NOVOLOG) 1 VIAL SQ SCH ×4 (06:18→21:32)
--- NOTE | 2017-12-04 09:47 | PN ---
Progress Note, Physician History of Present Illness: No events overnight No scrotal bleeding No palps - Current Medication List Current Medications: Active Medications Apixaban (Eliquis -) 5 mg PO BID [facility] Last Admin: 12/03/17 21:38 Dose: 5 mg Bacitracin (Bacitracin -) 1 applic TP BID [facility] Last Admin: 12/03/17 21:39 Dose: 1 applic Ceftaroline Fosamil 600 mg/ (Dextrose) 100 mls @ 200 mls/hr IVPB BID [facility] PRN Reason: Protocol Last Admin: 12/03/17 21:41 Dose: 200 mls/hr Insulin Aspart (Novolog Vial Sliding Scale -) 1 vial SQ ACHS [facility] PRN Reason: Protocol Last Admin: 12/04/17 06:18 Dose: Not Given Insulin Detemir (Levemir Vial) 40 units SQ HS [facility] Last Admin: 12/03/17 21:37 Dose: 40 units Metformin HCl (Glucophage Xr -) 1,000 mg PO BIDAC [facility] Last Admin: 12/04/17 06:16 Dose: 1,000 mg Pantoprazole Sodium (Protonix -) 40 mg PO DAILY [facility] Last Admin: 12/03/17 09:39 Dose: 40 mg Ramipril (Altace -) 5 mg PO DAILY [facility] Last Admin: 12/03/17 09:38 Dose: 5 mg Sitagliptin Phosphate (Januvia -) 100 mg PO ACBK [facility] Last Admin: 12/04/17 06:16 Dose: 100 mg - Objective Vital Signs: Vital Signs Temperature 97.9 F 12/04/17 05:58 Pulse Rate 80 12/04/17 05:58 Respiratory Rate 20 12/04/17 05:58 Blood Pressure 149/71 12/04/17 05:58 O2 Sat by Pulse Oximetry (%) 97 12/03/17 21:00 Constitutional: Yes: No Distress, Calm Eyes: Yes: Conjunctiva Clear HENT: Yes: WNL Neck: Yes: WNL Cardiovascular: Yes: Regular Rate and Rhythm Respiratory: Yes: CTA Bilaterally Genitourinary: Yes: Scrotal Edema (Small area of inferior scrotum focal edema, open wound, no active bleeding) Edema: LLE: 1+, RLE: 1+ Labs: CBC, BMP 12/03/17 06:00 12/03/17 06:00 INR, PTT INR 1.16 (0.82-1.09) H 12/02/17 15:15 Assessment/Plan 62 yo male with CV issues that include ASCVD s/p CABG and AF Admitted with scrotal edema/cellulitis 1) CAD -Prior CABG -Stable at this time -No cardiovascular complaints -Not on asa as on NOAC as there is no active bleeding at scrotal wound -Continue ACEi 2) AF -ILR confirmed AF -Tolerating Apixaban without bleeding -Continue Apixaban at current dosing 3) Scrotal edema -Scrotal US consistent with cellulitis -Abx Tx as per 4) Diabetes -Management as per PMD
--- NOTE | 2017-12-04 09:51 | PN ---
Physical Exam: SUBJECTIVE: Patient seen and examined at the bedside. Feels well, denies pain. OBJECTIVE: Vital Signs Period Temp Pulse Resp BP Sys/Perez Pulse Ox Last 24 Hr 97.9 F-98.3 F 61-80 18-20 131-149/68-85 97 GENERAL: The patient is awake, alert, and fully oriented, in no acute distress. HEAD: Normal with no signs of trauma. EYES: PERRL, extraocular movements intact, sclera anicteric, conjunctiva clear. No ptosis. ENT: Ears normal, nares patent, oropharynx clear without exudates, moist mucous membranes. NECK: Trachea midline, full range of motion, supple. LUNGS: Breath sounds equal, diminished at the bases HEART: Regular rate and rhythm ABDOMEN: Soft, not distended EXTREMITIES: Bilateral lower ext edema right> left with discoloration on the right leg with old scabs NEUROLOGICAL: Normal speech, gait not observed. PSYCH: Normal mood, normal affect. Laboratory Results - last 24 hr 12/03/17 12/03/17 12/03/17 10:59 16:40 21:35 POC Glucometer 250 164 222 12/04/17 06:12 POC Glucometer 75 Active Medications Generic Name Dose Route Start Last Admin Trade Name Freq PRN Reason Stop Dose Admin Apixaban 5 mg 12/02/17 22:00 12/03/17 21:38 Eliquis - PO 5 mg BID WINDY Administration Bacitracin 1 applic 12/03/17 13:15 12/03/17 21:39 Bacitracin - TP 1 applic BID WINDY Administration Ceftaroline Fosamil 600 mg/ 100 mls @ 200 mls/hr 12/03/17 15:30 12/03/17 21: 41 Dextrose IVPB 200 mls/hr BID WINDY Administration Protocol Insulin Aspart 1 vial 12/02/17 22:00 12/04/17 06:18 Novolog Vial Sliding Scale - SQ Not Given ACHS WINDY Protocol Insulin Detemir 40 units 12/02/17 22:00 12/03/17 21:37 Levemir Vial SQ 40 units HS WINDY Administration Metformin HCl 1,000 mg 12/02/17 17:45 12/04/17 06:16 Glucophage Xr - PO 1,000 mg BIDAC WINDY Administration Pantoprazole Sodium 40 mg 12/03/17 10:00 12/03/17 09:39 Protonix - PO 40 mg DAILY WINDY Administration Ramipril 5 mg 12/03/17 10:00 12/03/17 09:38 Altace - PO 5 mg DAILY WINDY Administration Sitagliptin Phosphate 100 mg 12/03/17 07:00 12/04/17 06:16 Januvia - PO 100 mg ACBK WINDY Administration ASSESSMENT/PLAN: Patient is a 62 year old male with a significant past medical history of hypertension, dyslipidemia, diabetes, CAD s/p CABG, underwent ILR placement last year in the setting of unexplained syncope and AF detection (last interrogation was on 10/2017 and was found to have NSR with PACs) COPD (not on home O2), afib on eliquis, testicular cancer s/p orichectomy, s/p chemo and RTx finished 1977, CABG and cholecystectomy. He presents to the ED on 12/02/2017 for scrotal edema/scrotal wall abscess being treated with Zosyn. Vascular study 12/03/2017: negative for DVT ID: Scrotal cellulitis, acute Scrotal u/s suggests cellulitis, no mass or torsion seen On Zosyn (12/02->12/03), switched to Ceftaroline per ID Monitor fevers, labs, vitals ID following Noted to have minimal sero sang drainage of abscess with mild tenderness to scrotum Monitor bleeding in the setting of a/c with daily CBC Vascular Bilateral lower ext edema Ruled out for DVT Patient is already anticoagulated with eliquis Apply bacitracin to right lower anterior abrasion Endocrine Diabetes On Metformin, Januvia, NOvolog and Levemir 40 units BGMs ac/hs Cardiology Afib, chronic On eliquis 5mg BID Hypertension, chronic On Altace F.E.N. Fluids: Tolerating PO Electrolytes: monitor daily Nutrition: diabetic diet Prophy: DVT: on Eliquis GI: Protonix daily Disposition: full code. Visit type - Emergency Visit Emergency Visit: Yes ED Registration Date: 12/02/17 Care time: The patient presented to the Emergency Department on the above date and was hospitalized for further evaluation of their emergent condition. - New Patient This patient is new to me today: No - Critical Care Critical Care patient: No - Discharge Referral Referred to [facility] Med P.C.: No
[2017-12-04 10:09] LABS: BASO % 0.5 % (0-2.0); EOS % 0.6 % (0-4.5); HEMATOCRIT 38.2 % (35.4-49); HEMOGLOBIN 12.5 GM/dL (11.7-16.9); LYMPH % 8.1 % (8-40); MCH 26.4 pg (25.7-33.7); MCHC 32.7 g/dl (32.0-35.9); MEAN CELL VOLUME 80.7 fl (80-96); MEAN PLT VOLUME 7.7 fl (7.5-11.1); MONO % 6.9 % (3.8-10.2); NEUT % 83.9 % (42.8-82.8); PLATELET COUNT 236 K/MM3 (134-434); RBC 4.73 M/mm3 (4.00-5.60); RDW 15.9 % (11.9-15.9); WHITE BLOOD COUNT 8.9 K/mm3 (4.0-10.0)
[2017-12-04] MEDS: APIXABAN 5 MG TABLET PO SCH ×2 (10:36→21:28)
[2017-12-04] MEDS: RAMIPRIL 5 MG CAPSULE (FP) PO SCH (10:36)
[2017-12-04] MEDS: BACITRACIN 15 GM TUBE TOPICAL OINTMENT TP SCH ×2 (10:36→21:26)
[2017-12-04] MEDS: PANTOPRAZOLE 40 MG TABLET (FP) PO SCH (10:37)
[2017-12-04] MEDS: CEFTAROLINE FOSAMIL ACETATE 600 MG in DEXTROSE 5%-WATER - 100 ML IVPB SCH (10:37)
[2017-12-04 10:56] LABS: ALBUMIN 3.2 g/dl (3.4-5.0); ANION GAP 9 (8-16); BILIRUBIN,TOTAL 0.3 mg/dL (0.2-1.0); BLOOD UREA NITROGEN 17 mg/dL (7-18); CALCIUM 8.7 mg/dL (8.5-10.1); CHLORIDE 104 mmol/L (98-107); CO2 27 mmol/L (21-32); CREATININE 1.1 mg/dL (0.7-1.3); GLUCOSE,RANDOM 147 mg/dL (74-106); MAGNESIUM 1.6 mg/dL (1.8-2.4); POTASSIUM 4.6 mmol/L (3.5-5.1); SGOT/AST 19 U/L (15-37); SGPT/ALT 22 U/L (12-78); SODIUM 140 mmol/L (136-145); TOT PROT 6.6 g/dl (6.4-8.2)
[2017-12-04 10:58] LABS: ALK PHOS 78 U/L (45-117)
[2017-12-04] MEDS ORDERED: MAGNESIUM OXIDE 400 MG TABLET (FP) PO ONE (11:30)
--- NOTE | 2017-12-04 15:58 | PN ---
Progress Note (short form) - Note Progress Note: clinically improved Vital Signs Period Temp Pulse Resp BP Sys/Perez Pulse Ox Last 24 Hr 97.9 F-98.7 F 61-80 20-20 131-163/65-86 97 cor-rrr lungs clear abd soft,nt less scrotal erythema,no drainage CBC, BMP 12/04/17 09:40 12/04/17 09:40 Microbiology 12/02/17 19:45 Abscess Gram Stain - Final 12/02/17 19:45 Abscess Wound Culture - Preliminary Staphylococcus Coagulase Neg 12/02/17 19:45 Urine - Urine Clean Catch Urine Culture - Final NO GROWTH OBTAINED 12/02/17 19:15 Blood - Peripheral Venous Blood Culture - Preliminary NO GROWTH OBTAINED AFTER 24 HOURS, INCUBATION TO CONTINUE FOR 4 DAYS. 12/02/17 19:15 Blood - Peripheral Venous Blood Culture - Preliminary NO GROWTH OBTAINED AFTER 24 HOURS, INCUBATION TO CONTINUE FOR 4 DAYS. imp/reccd scrotal abscess-switch to rocephin, no MRSA home on po antibiotics in am ?MRSA infection diabetic history of testicular cancer age 26 had right orchiectomy at the time CAD Problem List - Problems (1) Scrotal abscess Code(s): N49.2 - INFLAMMATORY DISORDERS OF SCROTUM (2) DM type 2 (diabetes mellitus, type 2) Code(s): E11.9 - TYPE 2 DIABETES MELLITUS WITHOUT COMPLICATIONS Qualifiers: Chronic kidney disease stage: stage 2 (mild) (3) CAD (coronary artery disease) Code(s): I25.10 - ATHSCL HEART DISEASE OF [place] CORONARY ARTERY W/O ANG PCTRS
[2017-12-04] MEDS ORDERED: CEFTRIAXONE 2 GM in DEXTROSE 5%-WATER - 100 ML IVPB SCH (16:00)
[2017-12-04] MEDS: INSULIN DETEMIR 100 UNITS/ML MDV SQ SCH (21:27)
--- NOTE | 2017-12-04 21:40 | EKG ---
Test Reason : Blood Pressure : / mmHG Vent. Rate : 071 BPM Atrial Rate : 071 BPM P-R Int : 204 ms QRS Dur : 110 ms QT Int : 430 ms P-R-T Axes : 095 086 075 degrees QTc Int : 467 ms SINUS RHYTHM WITH FREQUENT PREMATURE VENTRICULAR COMPLEXES VENTRICULAR TRIGEMINY PATTERN FIRST DEGREE AV BLOCK INCOMPLETE RIGHT BUNDLE BRANCH BLOCK BORDERLINE ECG WHEN COMPARED WITH ECG OF 03-DEC-2016 08:36, COMPARED TO EKG NO SIGNIFICANT CHANGE IS FOUND Confirmed by EUGENIE ABDALLA MD ([id number]) on 12/04/2017 9:40:16 PM Referred By: Lo BETTENCOURT Confirmed By:EUGENIE ABDALLA MD
[2017-12-05] MEDS ORDERED: PT OWN MED DRAWER 7, Y5N ONE (06:35)
[2017-12-05] MEDS: sitaGLIPtin PHOSPHATE 100 MG TABLET (FP) PO SCH (06:44)
[2017-12-05] MEDS: INSULIN SLIDING SCALE (NOVOLOG) 1 VIAL SQ SCH (06:45)
--- NOTE | 2017-12-05 06:54 | PN ---
Progress Note, Physician Chief Complaint: ID consult and coverage appreciated. Oatient feels better, scrotal edema and redness improved History of Present Illness: HTN, Dyslipidemia, DM type 2, CAD s/p CABG, aortic, implanted loop recorder, COPD (not on home O2), Paroxismal afib-Recurrent Syncope 2 rapid PAF,, stopped eliquis after GI bleed, testicular cancer s/p orichectomy, chemo and RTx finished 1977 SHx-CABG, B/L orichectomy, cholecystectomy, - Current Medication List Current Medications: Active Medications Apixaban (Eliquis -) 5 mg PO BID [facility] Last Admin: 12/04/17 21:28 Dose: 5 mg Bacitracin (Bacitracin -) 1 applic TP BID [facility] Last Admin: 12/04/17 21:26 Dose: 1 applic Ceftriaxone Sodium 2 gm/ (Dextrose) 100 mls @ 200 mls/hr IVPB DAILY [facility] Last Admin: 12/04/17 16:58 Dose: 200 mls/hr Insulin Aspart (Novolog Vial Sliding Scale -) 1 vial SQ ACHS [facility] PRN Reason: Protocol Last Admin: 12/05/17 06:45 Dose: Not Given Insulin Detemir (Levemir Vial) 40 units SQ HS [facility] Last Admin: 12/04/17 21:27 Dose: 40 units Metformin HCl (Glucophage Xr -) 1,000 mg PO BIDAC [facility] Last Admin: 12/05/17 06:44 Dose: 1,000 mg Non-Formulary Medication (Patient's Own Med) 1 each PO DAILY [facility] Pantoprazole Sodium (Protonix -) 40 mg PO DAILY [facility] Last Admin: 12/04/17 10:37 Dose: 40 mg Ramipril (Altace -) 5 mg PO DAILY [facility] Last Admin: 12/04/17 10:36 Dose: 5 mg Sitagliptin Phosphate (Januvia -) 100 mg PO ACBK [facility] Last Admin: 12/05/17 06:44 Dose: 100 mg - Objective Vital Signs: Vital Signs Temperature 98.0 F 12/04/17 22:00 Pulse Rate 71 12/04/17 22:00 Respiratory Rate 20 12/04/17 22:00 Blood Pressure 149/81 12/04/17 22:00 O2 Sat by Pulse Oximetry (%) 95 12/04/17 21:00 Constitutional: Yes: No Distress, Calm Eyes: Yes: Conjunctiva Clear, EOM Intact. No: Diplopia HENT: Yes: Atraumatic, Normocephalic. No: Drooling Neck: Yes: Supple, Trachea Midline. No: Lymphadenopathy Cardiovascular: Yes: Regular Rate and Rhythm, Murmur, S1, S2. No: Bradycardia, Tachycardia Respiratory: Yes: Regular, CTA Bilaterally Gastrointestinal: Yes: Normal Bowel Sounds, Soft, Abdomen, Obese ...Rectal Exam: Yes: Deferred Genitourinary: No: Anuria Breast(s): Yes: WNL Extremities: No: Amputation, Calf Tenderness, Cold, Cyanosis Edema: LLE: Trace, RLE: Trace Wound/Incision: Yes: Other (small wound after draining the abscess posterior scrotum Cellulitis improved) Neurological: Yes: Alert, Oriented, Cran Nerves II-XII Intact. No: Aphasia, Asterixis, Ataxia, Confusion, Dysarthria, Facial Droop, Lethargy, Loss of Sensation, Seizure, Tremors, Unresponsive, Unsteady Gait, Weakness ...Motor Strength: WNL Psychiatric: Yes: Alert, Oriented. No: Agitated, Suicidal Ideation Labs: CBC, BMP 12/04/17 09:40 12/04/17 09:40 INR, PTT INR 1.16 (0.82-1.09) H 12/02/17 15:15 Problem List - Problems (1) Scrotal abscess Assessment/Plan: Change to PO ABX. Will follow in the office in 1 week Code(s): N49.2 - INFLAMMATORY DISORDERS OF SCROTUM (2) DM type 2 (diabetes mellitus, type 2) Assessment/Plan: Levemir reduced dose to 40 units and Novolog as per sliding scale. Follow BGM Follow the diet Code(s): E11.9 - TYPE 2 DIABETES MELLITUS WITHOUT COMPLICATIONS Qualifiers: Chronic kidney disease stage: stage 2 (mild) (3) Paroxysmal A-fib Assessment/Plan: Continue Eliquis PO Cardiology f/u Code(s): I48.0 - PAROXYSMAL ATRIAL FIBRILLATION
--- NOTE | 2017-12-05 07:02 | DS ---
Physical Examination Vital Signs: Vital Signs Temperature 98.0 F 12/04/17 22:00 Pulse Rate 71 12/04/17 22:00 Respiratory Rate 20 12/04/17 22:00 Blood Pressure 149/81 12/04/17 22:00 O2 Sat by Pulse Oximetry (%) 95 12/04/17 21:00 Constitutional: Yes: Well Nourished, No Distress, Calm. No: Anxious Eyes: Yes: Conjunctiva Clear, EOM Intact, PERRL. No: Diplopia, Occular Prosthesis, Ptosis, Sclera Icterus, Tearing HENT: Yes: Atraumatic, Normocephalic. No: Drooling, Nasal Congestion Neck: Yes: Supple, Trachea Midline. No: Decreased ROM, Lymphadenopathy Cardiovascular: Yes: Regular Rate and Rhythm, S1, S2. No: JVD Respiratory: Yes: Regular, CTA Bilaterally. No: Accessory Muscle Use Gastrointestinal: Yes: Normal Bowel Sounds, Soft. No: Ascites, Distention ...Rectal Exam: Yes: Deferred Renal/: No: Anuria, Bladder Distention, CVA Tenderness - Left, CVA Tenderness - Right Breast(s): Yes: WNL Musculoskeletal: No: Back Pain, Joint Stiffness, Joint Swelling Extremities: No: Amputation, Calf Tenderness, Cold, Cyanosis Edema: LLE: Trace, RLE: Trace Integumentary: Yes: Other (Scrotal cellulitis) Wound/Incision: Yes: Clean/Dry ...Motor Strength: WNL Psychiatric: Yes: WNL Labs: CBC, BMP 12/04/17 09:40 12/04/17 09:40 Discharge Summary Reason For Visit: ABSCESS OF SCROTUM Current Active Problems CAD (coronary artery disease) (Acute) Paroxysmal A-fib (Acute) Scrotal abscess (Acute) Condition: Stable - Instructions Referrals: Ko Sullivan MD [Primary Care Provider] - Disposition: HOME - Home Medications Comprehensive Discharge Medication List: Ambulatory Orders Apixaban [Eliquis] 5 mg PO BID 12/02/17 Ciprofloxacin HCl [Cipro] 0 mg PO DAILY 12/02/17 Insulin Glargine,Hum.rec.anlog [Toujeo Solostar] 80 unit SQ DAILY 12/02/17 Insulin Lispro [Humalog] 100 unit SQ ASDIR 12/02/17 Metformin HCl [Metformin HCl ER] 1,000 mg PO BID 12/02/17 Pantoprazole Sodium 40 mg PO DAILY 12/02/17 Ramipril 5 mg PO DAILY 12/02/17 Sitagliptin Phosphate [Januvia] 100 mg PO DAILY 12/02/17
[2017-12-05 08:04] VITALS: BP 139/74; PULSE 73; TEMP 97.6
--- NOTE | 2017-12-05 08:48 | PN ---
Progress Note, Physician - Current Medication List Current Medications: Active Medications Apixaban (Eliquis -) 5 mg PO BID [facility] Last Admin: 12/04/17 21:28 Dose: 5 mg Bacitracin (Bacitracin -) 1 applic TP BID [facility] Last Admin: 12/04/17 21:26 Dose: 1 applic Ceftriaxone Sodium 2 gm/ (Dextrose) 100 mls @ 200 mls/hr IVPB DAILY [facility] Last Admin: 12/04/17 16:58 Dose: 200 mls/hr Insulin Aspart (Novolog Vial Sliding Scale -) 1 vial SQ ACHS [facility] PRN Reason: Protocol Last Admin: 12/05/17 06:45 Dose: Not Given Insulin Detemir (Levemir Vial) 40 units SQ HS [facility] Last Admin: 12/04/17 21:27 Dose: 40 units Metformin HCl (Glucophage Xr -) 1,000 mg PO BIDAC [facility] Last Admin: 12/05/17 06:44 Dose: 1,000 mg Non-Formulary Medication (Patient's Own Med) 1 each PO DAILY [facility] Pantoprazole Sodium (Protonix -) 40 mg PO DAILY [facility] Last Admin: 12/04/17 10:37 Dose: 40 mg Ramipril (Altace -) 5 mg PO DAILY [facility] Last Admin: 12/04/17 10:36 Dose: 5 mg Sitagliptin Phosphate (Januvia -) 100 mg PO ACBK [facility] Last Admin: 12/05/17 06:44 Dose: 100 mg - Objective Vital Signs: Vital Signs Temperature 97.6 F 12/05/17 06:00 Pulse Rate 73 12/05/17 06:00 Respiratory Rate 20 12/05/17 06:00 Blood Pressure 139/74 12/05/17 06:00 O2 Sat by Pulse Oximetry (%) 95 12/04/17 21:00 Labs: CBC, BMP 12/04/17 09:40 12/04/17 09:40 INR, PTT INR 1.16 (0.82-1.09) H 12/02/17 15:15 Assessment/Plan 62 yo male with CV issues that include ASCVD s/p CABG and AF Admitted with scrotal edema/cellulitis CAD -Prior CABG -has chronic atypical CP sx's, with prior LHC showing patent coronary anatomy including grafts -no ASA (sec to pt on NOAC, with prior h/o occult GIB) -chronic med non-adherence complicates tx--was started on statin by me many months ago and encouraged to continue daily regimen--? if taking. defer to outpt f/u -Continue ACEi AF -prior flutter ablation many yrs ago -ILR confirmed recureent paroxysmal aflutter/fib -tolerating Apixaban without bleeding, H/H normal here -continue same plan HTN -bp's ranging 130s-160s here -prefer tight targets (<130 systolic) -defer med changes until can reassess bp in office, given pt's h/o frequent orthostatic syncope diast CHF -one episode following vigorous blood products after GIB -none since Scrotal edema -Scrotal US consistent with cellulitis -Abx Tx as per , PMD Diabetes -Management as per PMD (complicated by poor compliance with diet and meds, chronically)
== END 2017-12-05 09:54 | disposition home or self-care (01) | DRG 728 ==
LOC: JER 14:35 → JERBED 16:11 → J8W 18:08
PROVIDERS: ADMIT Internal Medicine; ATTEND Internal Medicine
DX: N49.2 Inflammatory disorders of scrotum (principal); I50.32 Chronic diastolic (congestive) heart failure; K21.9 Gastro-esophageal reflux disease without esophagitis; Z79.01 Long term (current) use of anticoagulants; E11.9 Type 2 diabetes mellitus without complications; Z79.4 Long term (current) use of insulin; F17.210 Nicotine dependence, cigarettes, uncomplicated; I25.10 Atherosclerotic heart disease of native coronary artery without angina pectoris; Z95.1 Presence of aortocoronary bypass graft; J44.9 Chronic obstructive pulmonary disease, unspecified; I48.0 Paroxysmal atrial fibrillation; Z85.47 Personal history of malignant neoplasm of testis; R60.0 Localized edema; I11.0 Hypertensive heart disease with heart failure
CPT/HCPCS: 36415; 76870-TC; 80053; 81003; 81015; 82962; 83036; 83735; 84100; 85025; 85610; 85730; 87040; 87045; 87046; 87070; 87077; 87086; 87177; 87205; 87209; 93005; 93010; 93970-TC; 99284-25

== ENCOUNTER 2018-01-19 10:20 | Observation (INO) | payer OTHER ==
[2018-01-19 10:31] VITALS: BMI 29.8
[2018-01-19] MEDS ORDERED: ASPIRIN 81 MG CHEWABLE TABLETS PO ONE (11:05)
--- NOTE | 2018-01-19 11:12 | PDOC ---
History of Present Illness <Wenceslao Galo - Last Filed: 01/19/18 15:26> - General History Source: Patient Exam Limitations: No Limitations <Alberto Wright - Last Filed: 01/19/18 15:28> - General Chief Complaint: Chest Pain Stated Complaint: CHEST PAIN Time Seen by Provider: 01/19/18 10:38 - History of Present Illness Initial Comments: 01/19/18 13:48 The patient is a 62 year old male, with a significant PMH of atrial fibrillation on eliquis, IDDM, hypertension, GERD, testicular cancer (right testicle removed 40 years ago), anemia, CAD s/p triple bypass, hypercholesterolemia, who presents to the emergency department with intermittent left sided chest pain beginning earlier today. The patient states that since this morning he has had 4 episodes of chest pain, described as a pressure like sensation, non radiating, with no alleviating or exacerbating factors, that last for 1-2 minutes before resolving on its own. He denies any associated palpitations, shortness of breath, dizziness, lightheadedness or nausea. The patient states he first experienced the chest pain this morning while he was driving to his labor delivery specialist's office Dr. Tyler for a scheduled appointment. The patient states he visited his PMD Dr. Zuleta a couple of days ago for preoperative clearance for cataract surgery who performed an EKG and advised him to follow up with labor delivery specialist Dr. Tyler today. 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 The patient denies any history of [place]. The patient denies palpitations, shortness of breath, lightheadedness, calf tenderness, headache and dizziness. Denies fever, chills, nausea, vomit, diarrhea and constipation. Denies dysuria, frequency, urgency and hematuria. 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 Current everyday smoker. No EtOH use or recreational drug use. PCP: Dr. Zuleta Contracting Officer: Dr Tyler (Alberto Wright) Past History - Past Medical History Anemia: Yes Asthma: No Cancer: Yes (testicular -> surgery + chemo in 20's) Cardiac Disorders: Yes (ATRIAL [id number] "NUCLEAR CHIP" FOR EVENING RHYTHM MONITORING) CVA: No COPD: Yes CHF: No Dementia: No Diabetes: Yes (type 1 since 31 y/o) GI Disorders: Yes (ULCER) Disorders: No HTN: Yes Hypercholesterolemia: Yes Liver Disease: No Seizures: No Thyroid Disease: No - Surgical History Abdominal Surgery: No Appendectomy: Yes () Cardiac Surgery: Yes (2007 triple bypass, aortic valve GROWTH REMOVED, ablaTion) Cholecystectomy: Yes (2009) Lung Surgery: No Neurologic Surgery: No Orthopedic Surgery: No - Immunization History Immunization Up to Date: Yes - Suicide/Smoking/Psychosocial Hx Smoking Status: Yes Smoking History: Former smoker Have you smoked in the past 12 months: Yes Number of Cigarettes Smoked Daily: 60 If you are a former smoker, when did you quit?: 1 month ago Cigars Per Day: 0 Information on smoking cessation initiated: No 'Breaking Loose' booklet given: 12/02/17 Hx Alcohol Use: No Drug/Substance Use Hx: No Substance Use Type: None Hx Substance Use Treatment: No <Wenceslao Galo - Last Filed: 01/19/18 15:26> <Alberto Wright - Last Filed: 01/19/18 15:28> - Past Medical History Allergies/Adverse Reactions: Allergies Allergy/AdvReac Type Severity Reaction Status Date / Time No Known Drug Allergies Allergy Verified 01/19/18 10:22 latex AdvReac Severe Rash Verified 01/19/18 10:22 TAPE AdvReac Severe Uncoded 01/19/18 10:22 Home Medications: Ambulatory Orders Apixaban [Eliquis] 5 mg PO BID 12/02/17 Insulin Glargine,Hum.rec.anlog [Toujeo Solostar] 80 unit SQ DAILY 12/02/17 Insulin Lispro [Humalog] 100 unit SQ ASDIR 12/02/17 Metformin HCl [Metformin HCl ER] 1,000 mg PO BID 12/02/17 Pantoprazole Sodium 40 mg PO DAILY 12/02/17 Ramipril 5 mg PO DAILY 12/02/17 Sitagliptin Phosphate [Januvia] 100 mg PO DAILY 12/02/17 Cardiac Specific PMH - Complaint Specific PMHX Pacemaker: No <Wenceslao Galo - Last Filed: 01/19/18 15:26> Review of Systems <Wenceslao Galo - Last Filed: 01/19/18 15:26> <Alberto Wright - Last Filed: 01/19/18 15:28> - Review of Systems Comments:: 01/19/18 13:49 CONSTITUTIONAL: No reported: Fever, Chills, Diaphoresis, Generalized Weakness, Malaise, Loss of Appetite HEENT: No reported: Rhinorrhea, Nasal Congestion, Throat Pain, Throat Swelling, Difficulty Swallowing, Mouth Swelling, Ear Pain, Eye Pain, Visual Changes CARDIOVASCULAR: Reported: (+) Chest pain. No reported: Syncope, Palpitations, Irregular Heart Rate, Lightheadedness, Peripheral Edema RESPIRATORY: No reported: Cough, Shortness of Breath, SOB with Exertion, Orthopnea, Wheezing , Stridor, Hemoptysis GASTROINTESTINAL: No reported: Abdominal pain, Abdominal Distension, Nausea, Vomiting, Diarrhea, Constipation, Melena, Hematochezia GENITOURINARY: No reported: Dysuria, Frequency, Urgency, Hesitancy, Flank Pain, Genital Pain MUSCULOSKELETAL: No reported: Myalgia, Arthralgia, Joint Swelling, Back pain, Neck Pain SKIN: No reported: Rash, Itching, Pallor HEMEATOLOGIC/IMMUNOLOGIC: No reported: Easy Bleeding, Easy Bruising, Lymphadenopathy, Frequent infections ENDOCRINE: No reported: Unexplained Weight Gain, Unexplained Weight Loss, Heat Intolerance , Cold Intolerance NEUROLOGIC: No reported: Headache, Focal Weakness, Paresthesias, Vertigo, Lightheadedness, Unsteady Gait, Seizure, Mental Status Changes, Incontinence PSYCHIATRIC: No reported: Anxiety, Depression (Alberto Wright) *Physical Exam <Wenceslao Galo - Last Filed: 01/19/18 15:26> <Alberto Wright - Last Filed: 01/19/18 15:28> - Vital Signs Last Vital Signs Temp Pulse Resp BP Pulse Ox 97.6 F 76 16 149/97 95 01/19/18 10:22 01/19/18 10:22 01/19/18 10:22 01/19/18 10:22 01/19/18 10:22 - Physical Exam Comments: 01/19/18 13:49 GENERAL: The patient is awake, alert, and fully oriented, Nontoxic - in no acute distress. HEAD: Normocephalic, atraumatic. EYES: extraocular movements intact, sclera anicteric, conjunctiva clear. ENT: Normal voice, Moist mucous membranes. NECK: Normal range of motion, supple LUNGS: Breath sounds equal, clear to auscultation bilaterally. No wheezes, no rhonchi, no rales. HEART: Regular rate and rhythm, normal S1 and S2 without murmur, rub or gallop. ABDOMEN: Soft, nontender, No guarding, no rebound. No CVA tenderness EXTREMITIES: Normal range of motion, no edema. No clubbing or cyanosis. No cords, erythema, or tenderness. NEUROLOGICAL: No facial assymetry, Normal speech, PSYCH: Normal mood, normal affect. SKIN: Warm, Dry, normal turgor, (Alberto Wright) Heart Score/ECG Review <Wenceslao Galo - Last Filed: 01/19/18 15:26> <Alberto Wright - Last Filed: 01/19/18 15:28> - ECG Impressions Comment:: 01/19/18 11:36 Twelve-lead EKG was performed and reviewed by me. There is normal sinus rhythm with a normal rate. Rate of [address]-T wave changes suggestive of ischemia, when compared with prior EKG 2017 there is resolution of PVCs/trigeminy (Wenceslao Galo) ED Treatment Course - LABORATORY CBC & Chemistry Diagram: 01/19/18 12:00 01/19/18 14:21 <Wenceslao Galo - Last Filed: 01/19/18 15:26> - LABORATORY CBC & Chemistry Diagram: 01/19/18 12:00 01/19/18 14:21 <Alberto Wright - Last Filed: 01/19/18 15:28> - ADDITIONAL ORDERS Additional order review: Laboratory Results 01/19/18 01/19/18 01/19/18 14:21 12:00 12:00 PT with INR 12.30 INR 1.09 Sodium 137 Cancelled Potassium 4.5 Cancelled Chloride 104 Cancelled Carbon Dioxide 27 Cancelled Anion Gap 6 L Cancelled BUN 17 Cancelled Creatinine 1.2 Cancelled Creat Clearance w eGFR > 60 Cancelled Random Glucose 191 H D Cancelled Calcium 8.4 L Cancelled Magnesium Cancelled Total Bilirubin 0.4 D Cancelled AST 17 Cancelled ALT 23 Cancelled Alkaline Phosphatase 73 Cancelled Creatine Kinase 126 Cancelled Troponin I 0.04 D Cancelled Total Protein 6.3 L Cancelled Albumin 3.3 L Cancelled 01/19/18 12:00 RBC 4.85 MCV 81.9 MCHC 33.8 RDW 17.2 H MPV 8.3 Neutrophils % 76.8 Lymphocytes % 13.0 D Monocytes % 7.5 Eosinophils % 1.8 D Basophils % 0.9 - RADIOLOGY Radiograph Interpretation: 01/19/18 13:50 EXAM#: TYPE/EXAM: RESULT: [id number] RAD/CHEST X-RAY PORTABLE* Portable chest: Pain. Since the prior study of 11/09/2017, again noted are postsurgical changes in both hemithoraces with a large heart, sclerotic knob and no sign of an acute process. There are sternal sutures. There is clips and fortunato noted. There are sutures. Incidental note is made of a cardiac device by the left heart border. Impression: Large heart. Previous surgeries. No acute pathology. Reported By: Westley Stratton MD (Alberto Wright) - Medications Given in the ED: ED Medications Discontinued Medications Generic Name Dose Route Start Last Admin Trade Name Freq PRN Reason Stop Dose Admin Aspirin 162 mg 01/19/18 11:05 01/19/18 11:09 Asa - PO 01/19/18 11:06 162 mg ONCE ONE Administration Medical Decision Making <Wenceslao Galo - Last Filed: 01/19/18 15:26> <Alberto Wright - Last Filed: 01/19/18 15:28> - Medical Decision Making 01/19/18 11:11 62y M hx of A. fib on Eliquis, IDDM, HTN, GERD, testicular ca, CAD s/p CABG (5 yrs ago) presents with episodic nonradiating, pressure-like chest pain since this morning, lasting minutes at a time, lasts approximately 1 minute before resolving. Patient denies associated shortness of breath, dyspnea on exertion, nausea, vomiting, diaphoresis or lightheadedness, palpitations. On exam the patient is well-appearing, in no acute distress, he does have bilateral lower extremity edema that is chronic. Differential includes possible ACS, inconsistent with PE, dissection, AAA due to the intermittent nature. pt is a current smoker We'll obtain blood work, troponin, EKG. We'll give the patient 162 of aspirin Will discuss with PMD and cardiology 01/19/18 14:17 chemistry hemolyzed awaiting repeat case dw dr. zuleta, requests observation will obs tele pending trops will consult daisy A portion of this note was documented by scribe services under my direction. I have reviewed the details of the note, within reason, and agree with the documentation with the following case summary and management plan written by me 01/19/18 15:[address] arevalo, agree with obs/risk stratificaton for acs trop neg x 1 (Wenceslao Galo) 01/19/18 15:25 Call placed to Cardiology Dr. Tyler. Case discussed with covering physician Dr. Arevalo. (Alberto Wright) *DC/Admit/Observation/Transfer - Discharge Dispostion Decision to Admit order: Yes <Wenceslao Galo - Last Filed: 01/19/18 15:26> <Alberto Wright - Last Filed: 01/19/18 15:28> Diagnosis at time of Disposition: Chest pain Qualifiers: Chest pain type: unspecified Qualified Code(s): R07.9 - Chest pain, unspecified - Discharge Dispostion Condition at time of disposition: Stable - Attestations Scribe Attestion: 01/19/18 13:50 Documentation prepared by Alberto Wright, acting as manager medical writing for Wenceslao Galo MD. (Alberto Wright)
--- NOTE | 2018-01-19 11:43 | EKG ---
Test Reason : Blood Pressure : / mmHG Vent. Rate : 085 BPM Atrial Rate : 085 BPM P-R Int : 196 ms QRS Dur : 098 ms QT Int : 390 ms P-R-T Axes : 094 096 034 degrees QTc Int : 464 ms POOR DATA QUALITY, INTERPRETATION MAY BE ADVERSELY AFFECTED SINUS RHYTHM WITH FUSION COMPLEXES RIGHTWARD AXIS CANNOT RULE OUT ANTERIOR INFARCT , AGE UNDETERMINED ABNORMAL ECG WHEN COMPARED WITH ECG OF 03-DEC-2017 11:21, FUSION COMPLEXES ARE NOW PRESENT PREMATURE VENTRICULAR COMPLEXES ARE NO LONGER PRESENT NONSPECIFIC T WAVE ABNORMALITY NOW EVIDENT IN INFERIOR LEADS Confirmed by DIPIKA ROSALES MD ([id number]) on 01/19/2018 11:43:41 AM Referred By: Confirmed By:DIPIKA ROSALES MD
[2018-01-19] MEDS ORDERED: ASPIRIN 81 MG CHEWABLE TABLETS ONE (11:45)
[2018-01-19 12:04] LABS: BASO % 0.9 % (0-2.0); EOS % 1.8 % (0-4.5); HEMATOCRIT 39.7 % (35.4-49); HEMOGLOBIN 13.4 GM/dL (11.7-16.9); MCH 27.7 pg (25.7-33.7); MCHC 33.8 g/dl (32.0-35.9); MEAN CELL VOLUME 81.9 fl (80-96); MEAN PLT VOLUME 8.3 fl (7.5-11.1); MONO % 7.5 % (3.8-10.2); NEUT % 76.8 % (42.8-82.8); PLATELET COUNT 169 K/MM3 (134-434); RBC 4.85 M/mm3 (4.00-5.60); RDW 17.2 % (11.9-15.9); WHITE BLOOD COUNT 7.1 K/mm3 (4.0-10.0)
[2018-01-19 12:16] LABS: INR 1.09 (0.82-1.09); PROTHROMBIN TIME (PATIENT) 12.3 SEC (9.7-13.0)
[2018-01-19 15:05] LABS: ALBUMIN 3.3 g/dl (3.4-5.0); ALK PHOS 73 U/L (45-117); ANION GAP 6 (8-16); BILIRUBIN,TOTAL 0.4 mg/dL (0.2-1.0); BLOOD UREA NITROGEN 17 mg/dL (7-18); CALCIUM 8.4 mg/dL (8.5-10.1); CHLORIDE 104 mmol/L (98-107); CO2 27 mmol/L (21-32); CREATININE 1.2 mg/dL (0.7-1.3); GLUCOSE,RANDOM 191 mg/dL (74-106); POTASSIUM 4.5 mmol/L (3.5-5.1); SGOT/AST 17 U/L (15-37); SGPT/ALT 23 U/L (12-78); SODIUM 137 mmol/L (136-145); TOT PROT 6.3 g/dl (6.4-8.2)
--- NOTE | 2018-01-19 15:17 | CON.CARD ---
Cardiology Consult (text) - Consultation Consultation Note: CC: CP 62 yo former smoker (quit 3 months ago) with h/o CAD--s/p CABG/LUCAS ligation ( residual flow present) , HTN, HPL, afib/aflutter s/p ablation 2010 and subsequent recurrence on AC with eliquis, s/p loop recorder, diastolic chf, vasovagal syncope, prior GIB/avm's s/p tx, COPD, IDDM, Lymphoma--s/p expl sternotomy and XRT in 1969's who presents with cp. 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 Also noted that he was more fatigued walking up the stairs to his apartment this mornging Patient states that today's cardiology visit was for further evaluation of an abnormal ekg that was done during a visit with his pmd for preoperative clearance for cataract surgery. Per report, multiple pvc's were noted on that ekg. patient denies recent palps, dizziness. Otherwise he had been in usual state of health. No recent decrease in exercise capacity He has chronic LE edema, stable. Has chronic car, stable. No recent change in meds. No palps, dizziness, orthpnea, PND, bleeding, transient neurologic sx's. He denies fever, chills, sweats, nausea, vomiting, diarrhea, poor po intake, headache, rashes, cough, nasal congestion. director of maintenance Dr. 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 Fam hx: Diabetes: Grandparent, Heart Disease Ros: per hpi Ambulatory Orders Apixaban [Eliquis] 5 mg PO BID 12/02/17 Insulin Glargine,Hum.rec.anlog [Toujeferson Solostar] 80 unit SQ DAILY 12/02/17 Insulin Lispro [Humalog] 100 unit SQ ASDIR 12/02/17 Metformin HCl [Metformin HCl ER] 1,000 mg PO BID 12/02/17 Pantoprazole Sodium 40 mg PO DAILY 12/02/17 Ramipril 5 mg PO DAILY 12/02/17 Sitagliptin Phosphate [Januvia] 100 mg PO DAILY 12/02/17 Current Medications Apixaban (Eliquis -) 5 mg PO BID WINDY Atorvastatin Calcium (Lipitor -) 40 mg PO HS WINDY Insulin Aspart (Novolog Vial Sliding Scale -) 1 vial SQ ACHS WINDY PRN Reason: Protocol Insulin Detemir (Levemir Vial) 80 units SQ ACBK WINDY Nitroglycerin (Nitro-Bid 2% Paste -) 0.5 inch TD BID WINDY Pantoprazole Sodium (Protonix -) 40 mg PO DAILY WINDY Ramipril (Altace -) 5 mg PO DAILY [facility]Y Sitagliptin Phosphate (Januvia -) [address] [facility] Vital Signs - 24 hr 01/19/18 10:22 Temperature 97.6 F Pulse Rate 76 Respiratory 16 Rate Blood Pressure 149/97 O2 Sat by Pulse 95 Oximetry (%) Intake & Output 01/17/18 01/18/18 01/19/18 01/20/18 07:59 07:59 07:59 07:59 Weight 245 lb NAD, calm JVD flat, neck supple RRR nl s1, s2 2/6 sys murmur at lsb diminshed air movement + bs soft nt nd ext with trace edema , no c/c + dp/pt aaox3 no jaundice, diaphoresis no carotid bruits. CBC, BMP 01/19/18 12:00 01/19/18 14:21 Laboratory Tests 01/19/18 14:21 Total Bilirubin 0.4 D AST 17 ALT 23 Alkaline Phosphatase 73 Creatine Kinase 126 Troponin I 0.04 D Albumin 3.3 L Imaging/Testing EKG 01/2018: poor baseline. sr, 85 bpm. rightward axis. incomplete RBBB/RSR' variant. no acute ischemic chagnes. tele: sr with pvc's. cxr: wn Stress Echo 04/28: 1:55min (87% MPHR)--dyspnea; no STs. Rest images showed: Technically limited images. Normal wall motion in all visualized territories, normal LVEF. Post-exercise images showed: Technically limited images. Normal augmentation of contraction in all visualized territories, with appropriate increase in LVEF TIM 01/26 ([place]): nl LV/EF; mild-mod LVH; nl RV; (peak 25; PIPO 1.2-1.6); mild MR; s/p LUCAS ligation with residual appenage cavity with small flow into it from LA, and ? thrombus inside Echo 03/2016: nl LV/EF; nl RV; mild LAE; mild [facility] 08/2012: [place] 3 VD, patent SVG to Lcx-OM1 jump to RPDA, patent SON to LAD A/P 62 yo former smoker (quit 3 months ago) with h/o CAD--s/p CABG/LUCAS ligation ( residual flow present) , HTN, HPL, afib/aflutter s/p ablation 2010 and subsequent recurrence on AC with eliquis, s/p loop recorder, diastolic chf, vasovagal syncope, prior GIB/avm's s/p tx, COPD, IDDM, Lymphoma--s/p expl sternotomy and XRT in s who presents with cp. CP/CAD s/p CABG/hl - + rf's, known cardiac disease. sx's similar to prior anginal pain. con't juice. plan for stress test in am. patient declines nuclear stress test, amenable to stress echo. - hold nitropaste for stress test. currently cp free without it. - con't asa, statin, acei. afib/flutter on eliquis - currently in sr, rate controlled off av richard blockade - con't eliquis. HTN - currently elevated, but has not yet received anti-htn. Will give ramipril dose now. con't to monitor diastolic HF/ (peak 25; PIPO 1.2-1.6) - not on diuretics as outpatient. currently appears euvolemic - daily weights, i/o's. vasovagal syncope - no recurrence here. + tobacco/copd - applauded on recently quitting smoking - mgm't of coped per pmd.
--- NOTE | 2018-01-19 18:21 | HP ---
Admitting History and Physical - Admission Chief Complaint: 62 y.o M presented to the ER today with 4 episodes of resting left sided chest pain-severe pressure, while driving, crescendo type each lasting several minutes. No N/V/palpitations, no cold sweats, no LOC, pain radiated to LUE. The pains improved when he came to [facility]. History of Present Illness: HTN, Dyslipidemia, DM type 2, CAD s/p CABG, aortic, implanted loop recorder, COPD (not on home O2), Paroxismal afib-Recurrent Syncope 2 rapid PAF,, now re- started eliquis after GI bleed, testicular cancer s/p orichectomy, chemo and RTx finished 1977 SHx-CABG, B/L orichectomy, cholecystectomy, Per cardiology: EKG 01/2018: poor baseline. sr, 85 bpm. rightward axis. incomplete RBBB/RSR' variant, 0.[address] depression in iferior leads prior EKG: SR with PVC. Rightward axis. AV delay. Incomplete RBBB. Possible anterior infarct. tele: Stress Echo 04/28: 1:55min (87% MPHR)--dyspnea; no STs. Rest images showed: Technically limited images. Normal wall motion in all visualized territories, normal LVEF. Post-exercise images showed: Technically limited images. Normal augmentation of contraction in all visualized territories, with appropriate increase in LVEF TIM 01/26 ([place]): nl LV/EF; mild-mod LVH; nl RV; moderate (peak 25; PIPO 1.2- 1.6); mild MR; s/p LUCAS ligation with residual appenage cavity with small flow into it from LA, and ? 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 No: Alzheimer's, CVA, Dementia, Migraine, Multiple Sclerosis, Peripheral Neuropathy, Parkinson's, Seizure, TIA, Other Cardiovascular: Yes: AFIB, CAD, HTN, Hyperlipdemia, Other (A flutter) Pulmonary: Yes: COPD Hepatobiliary: Yes: Cholecystitis (Cholecystectomy) Renal/: Yes: Renal Inusuff Endocrine: Yes: Diabetes Mellitus - Past Surgical History Past Surgical History: Yes: CABG, Cholecystectomy - Smoking History Smoking history: Former smoker Have you smoked in the past 12 months: Yes Aproximately how many cigarettes per day: 60 If you are a former smoker, when did you quit?: 1 month ago - Alcohol/Substance Use Hx Alcohol Use: No - Social History History of Recent Travel: No Home Medications - Allergies Allergies/Adverse Reactions: Allergies Allergy/AdvReac Type Severity Reaction Status Date / Time No Known Drug Allergies Allergy Verified 01/19/18 10:22 latex AdvReac Severe Rash Verified 01/19/18 10:22 TAPE AdvReac Severe Uncoded 01/19/18 10:22 - Home Medications Home Medications: Ambulatory Orders Apixaban [Eliquis] 5 mg PO BID 12/02/17 Insulin Glargine,Hum.rec.anlog [Toujeo Solostar] 80 unit SQ DAILY 12/02/17 Insulin Lispro [Humalog] 100 unit SQ ASDIR 12/02/17 Metformin HCl [Metformin HCl ER] 1,000 mg PO BID 12/02/17 Pantoprazole Sodium 40 mg PO DAILY 12/02/17 Ramipril 5 mg PO DAILY 12/02/17 Sitagliptin Phosphate [Januvia] 100 mg PO DAILY 12/02/17 Family Disease History - Family Disease History Family Disease History: Diabetes: Grandparent, Heart Disease: Father Review of Systems - Review of Systems Constitutional: denies: Chills, Diaphoresis, Fever Eyes: denies: Blind Spots, Blurred Vision, Floaters HENT: denies: Difficult Swallowing, Ear Discharge, Gingival Bleeding, Hearing Loss Neck: denies: Decreased ROM, Lumps, Pain on Movement, Swollen Glands Cardiovascular: reports: Chest Pain. denies: Edema, Palpitations Respiratory: reports: SOB on Exertion. denies: Cough, Exercise Intolerance, Wheezing Gastrointestinal: reports: Diarrhea (occasionally). denies: Abdominal Pain, Bloating, Constipation Genitourinary: denies: Burning, Discharge Musculoskeletal: reports: No Symptoms Integumentary: denies: No Symptoms Neurological: denies: Change in LOC, Change in Speech, Confusion Endocrine: reports: No Symptoms Hematology/Lymphatic: denies: Easily Bruised, Excessive Bleeding Psychiatric: reports: No Symptoms Physical Examination Vital Signs: Vital Signs Temperature 97.4 F L 01/19/18 17:47 Pulse Rate 63 01/19/18 16:30 Respiratory Rate 20 01/19/18 17:47 Blood Pressure 160/82 01/19/18 16:30 O2 Sat by Pulse Oximetry (%) 97 01/19/18 17:47 Constitutional: Yes: No Distress, Anxious Eyes: Yes: Conjunctiva Clear, EOM Intact HENT: Yes: Atraumatic, Normocephalic. No: Drooling Neck: Yes: Supple, Trachea Midline. No: Lymphadenopathy, Rigid, Tenderness, Thyromegaly Cardiovascular: Yes: Pulse Irregular (VPC), S1, S2. No: Bradycardia, Tachycardia Respiratory: Yes: Regular, CTA Bilaterally. No: Accessory Muscle Use, Bradypnea Gastrointestinal: Yes: Normal Bowel Sounds, Soft. No: Abdomen, Obese, Ascites ...Rectal Exam: Yes: Deferred Renal/: No: Anuria, Bladder Distention, CVA Tenderness - Left, CVA Tenderness - Right Breast(s): Yes: WNL Musculoskeletal: Yes: WNL. No: Back Pain, Joint Stiffness, Joint Swelling Extremities: No: Calf Tenderness, Cold, Cyanosis, Erythema Edema: Yes Edema: LLE: Trace, RLE: Trace Integumentary: Yes: WNL Neurological: Yes: Alert, Oriented. No: Aphasia, Ataxia, Dysarthria, Numbness, Seizure ...Motor Strength: WNL Psychiatric: Yes: WNL Labs: CBC, BMP 01/19/18 12:00 01/19/18 14:21 Imaging - Results Chest X-ray: Report Reviewed EKG: Image Reviewed Problem List - Problems (1) Chest pain Assessment/Plan: XAVIER Seen by Dr Sulema Mcclain. Will follow EKG, ENZYMES NTP, ASA, Statins, Telemetry Code(s): R07.9 - CHEST PAIN, UNSPECIFIED Qualifiers: Chest pain type: unspecified Qualified Code(s): R07.9 - Chest pain, unspecified (2) CAD (coronary artery disease) Assessment/Plan: Follow with cardiology-Needs Cath? Code(s): I25.10 - ATHSCL HEART DISEASE OF [place] CORONARY ARTERY W/O ANG PCTRS Qualifiers: Coronary Disease-Associated Artery/Lesion type: bypass graft (3) DM type 2 (diabetes mellitus, type 2) Assessment/Plan: Hold Metformin, continue Insulin, sliding scale Januvia, ADA Diet. Code(s): E11.9 - TYPE 2 DIABETES MELLITUS WITHOUT COMPLICATIONS Qualifiers: Diabetes mellitus pen[facility]entiary insulin use: with termite treater use Chronic kidney disease stage: stage 2 (mild)
[2018-01-19] MEDS ORDERED: INSULIN (NOVOLOG) ASPART 100 UNITS/ML 10ML VIAL ONE (21:36)
[2018-01-19] MEDS: INSULIN SLIDING SCALE (NOVOLOG) 1 VIAL SQ SCH (21:41)
[2018-01-19] MEDS: APIXABAN 5 MG TABLET PO SCH (21:41)
[2018-01-19] MEDS ORDERED: ATORVASTATIN CA 40 MG TABLET (FP) PO SCH (22:00)
[2018-01-19] MEDS: RAMIPRIL 5 MG CAPSULE (FP) PO SCH (22:32)
[2018-01-20] MEDS: INSULIN SLIDING SCALE (NOVOLOG) 1 VIAL SQ SCH ×2 (06:07→11:21)
[2018-01-20] MEDS ORDERED: INSULIN (LEVEMIR) 100 UNITS/ML UNITS SQ SCH (07:00)
[2018-01-20] MEDS ORDERED: sitaGLIPtin PHOSPHATE 100 MG TABLET (FP) PO SCH (07:00)
[2018-01-20 07:30] LABS: BASO % 0.8 % (0-2.0); EOS % 2.1 % (0-4.5); HEMATOCRIT 39.5 % (35.4-49); HEMOGLOBIN 13.2 GM/dL (11.7-16.9); LYMPH % 11.6 % (8-40); MCH 27.3 pg (25.7-33.7); MCHC 33.5 g/dl (32.0-35.9); MEAN CELL VOLUME 81.4 fl (80-96); MEAN PLT VOLUME 7.9 fl (7.5-11.1); NEUT % 78.5 % (42.8-82.8); PLATELET COUNT 175 K/MM3 (134-434); RBC 4.85 M/mm3 (4.00-5.60); WHITE BLOOD COUNT 6.4 K/mm3 (4.0-10.0)
[2018-01-20 08:08] LABS: MAGNESIUM 1.6 mg/dL (1.8-2.4); PHOSPHOROUS 4.2 mg/dL (2.5-4.9)
--- NOTE | 2018-01-20 08:31 | PN ---
Progress Note, Physician Chief Complaint: No chest pain. Awaiting EST History of Present Illness: HTN, Dyslipidemia, DM type 2, CAD s/p CABG , aortic, implanted loop recorder, COPD (not on home O2), Paroxismal afib-Recurrent Syncope 2 rapid PAF,, now re- started eliquis after GI bleed, testicular cancer s/p orichectomy, chemo and RTx finished 1977 SHx-CABG, B/L orichectomy, cholecystectomy, - Current Medication List Current Medications: Active Medications Apixaban (Eliquis -) 5 mg PO BID [facility] Last Admin: 01/19/18 21:41 Dose: 5 mg Atorvastatin Calcium (Lipitor -) 40 mg PO HS [facility] Last Admin: 01/19/18 21:41 Dose: 40 mg Insulin Aspart (Novolog Vial Sliding Scale -) 1 vial SQ [facility] PRN Reason: Protocol Last Admin: 01/20/18 06:07 Dose: Not Given Insulin Detemir (Levemir Vial) 80 units SQ ACBK [facility] Last Admin: 01/20/18 06:06 Dose: Not Given Nitroglycerin (Nitro-Bid 2% Paste -) 0.5 inch TD BID [facility] Pantoprazole Sodium (Protonix -) 40 mg PO DAILY [facility] Ramipril (Altace -) 5 mg PO DAILY [facility] Last Admin: 01/19/18 22:32 Dose: 5 mg Sitagliptin Phosphate (Januvia -) 100 mg PO ACBK [facility] Last Admin: 01/20/18 06:06 Dose: Not Given - Objective Vital Signs: Vital Signs Temperature 98.1 F 01/20/18 06:00 Pulse Rate 79 01/20/18 06:00 Respiratory Rate 20 01/20/18 06:00 Blood Pressure 155/77 01/20/18 06:00 O2 Sat by Pulse Oximetry (%) 95 01/19/18 20:11 Constitutional: Yes: No Distress, Calm Eyes: Yes: Conjunctiva Clear, Ptosis HENT: Yes: Atraumatic, Nasal Congestion Neck: Yes: Supple, Trachea Midline. No: Thyromegaly Cardiovascular: Yes: Regular Rate and Rhythm. No: Bradycardia, Tachycardia Respiratory: Yes: Regular, CTA Bilaterally. No: Accessory Muscle Use Gastrointestinal: Yes: Normal Bowel Sounds, Soft. No: Abdomen, Obese ...Rectal Exam: Yes: Deferred Genitourinary: No: Anuria, Bladder Distention, CVA Tenderness - Left, CVA Tenderness - Right Breast(s): Yes: WNL Musculoskeletal: No: Joint Stiffness, Joint Swelling Extremities: No: Amputation, Calf Tenderness, Cold, Cyanosis Edema: LLE: Trace, RLE: Trace Peripheral Pulses WNL: No Integumentary: Yes: WNL Neurological: Yes: WNL ...Motor Strength: WNL Psychiatric: Yes: WNL Labs: CBC, BMP 01/20/18 06:45 01/19/18 14:21 INR, PTT INR 1.09 (0.82-1.09) 01/19/18 12:00 Laboratory Results - last 24 hr 01/19/18 01/19/18 01/19/18 12:00 12:00 12:00 WBC 7.1 RBC 4.85 Hgb 13.4 Hct 39.7 MCV 81.9 MCH 27.7 MCHC 33.8 RDW 17.2 H Plt Count 169 D MPV 8.3 Neutrophils % 76.8 Lymphocytes % 13.0 D Monocytes % 7.5 Eosinophils % 1.8 D Basophils % 0.9 PT with INR 12.30 INR 1.09 Sodium Cancelled Potassium Cancelled Chloride Cancelled Carbon Dioxide Cancelled Anion Gap Cancelled BUN Cancelled Creatinine Cancelled Creat Clearance w eGFR Cancelled POC Glucometer Random Glucose Cancelled Hemoglobin A1c % Calcium Cancelled Phosphorus Magnesium Cancelled Total Bilirubin Cancelled AST Cancelled ALT Cancelled Alkaline Phosphatase Cancelled Creatine Kinase Cancelled Troponin I Cancelled Total Protein Cancelled Albumin Cancelled Triglycerides Cholesterol Total LDL Cholesterol HDL Cholesterol 01/19/18 01/19/18 01/19/18 14:21 19:09 21:14 WBC RBC Hgb Hct MCV MCH MCHC RDW Plt Count MPV Neutrophils % Lymphocytes % Monocytes % Eosinophils % Basophils % PT with INR INR Sodium 137 Potassium 4.5 Chloride 104 Carbon Dioxide 27 Anion Gap 6 L BUN 17 Creatinine 1.2 Creat Clearance w eGFR > 60 POC Glucometer 217 Random Glucose 191 H D Hemoglobin A1c % Calcium 8.4 L Phosphorus Magnesium Total Bilirubin 0.4 D AST 17 ALT 23 Alkaline Phosphatase 73 Creatine Kinase 126 125 Troponin I 0.04 D 0.05 Total Protein 6.3 L Albumin 3.3 L Triglycerides Cholesterol Total LDL Cholesterol HDL Cholesterol 01/20/18 01/20/18 01/20/18 06:05 06:45 06:45 WBC 6.4 RBC 4.85 Hgb 13.2 Hct 39.5 MCV 81.4 MCH 27.3 MCHC 33.5 RDW 17.0 H Plt Count 175 MPV 7.9 Neutrophils % 78.5 Lymphocytes % 11.6 Monocytes % 7.0 Eosinophils % 2.1 Basophils % 0.8 PT with INR INR Sodium Potassium Chloride Carbon Dioxide Anion Gap BUN Creatinine Creat Clearance w eGFR POC Glucometer 131 Random Glucose Hemoglobin A1c % Calcium Phosphorus 4.2 Magnesium 1.6 L Total Bilirubin AST ALT Alkaline Phosphatase Creatine Kinase Troponin I Total Protein Albumin Triglycerides 95 D Cholesterol 134 Total LDL Cholesterol 85 HDL Cholesterol 42 D 01/20/18 06:45 WBC RBC Hgb Hct MCV MCH MCHC RDW Plt Count MPV Neutrophils % Lymphocytes % Monocytes % Eosinophils % Basophils % PT with INR INR Sodium Potassium Chloride Carbon Dioxide Anion Gap BUN Creatinine Creat Clearance w eGFR POC Glucometer Random Glucose Hemoglobin A1c % 9.2 H D Calcium Phosphorus Magnesium Total Bilirubin AST ALT Alkaline Phosphatase Creatine Kinase Troponin I Total Protein Albumin Triglycerides Cholesterol Total LDL Cholesterol HDL Cholesterol Problem List - Problems (1) Chest pain Assessment/Plan: XAVIER Seen by Dr Sulema Mcclain. Will follow EKG, ENZYMES NTP, ASA, Statins, Telemetry Code(s): R07.9 - CHEST PAIN, UNSPECIFIED Qualifiers: Chest pain type: unspecified Qualified Code(s): R07.9 - Chest pain, unspecified (2) CAD (coronary artery disease) Assessment/Plan: Follow with cardiology-EST today Code(s): I25.10 - ATHSCL HEART DISEASE OF [place] CORONARY ARTERY W/O ANG PCTRS Qualifiers: Coronary Disease-Associated Artery/Lesion type: bypass graft (3) DM type 2 (diabetes mellitus, type 2) Assessment/Plan: Hold NPO today. Patient NPO before the stress test. Code(s): E11.9 - TYPE 2 DIABETES MELLITUS WITHOUT COMPLICATIONS Qualifiers: Diabetes mellitus nursing home insulin use: with nursing home use Chronic kidney disease stage: stage 2 (mild)
--- NOTE | 2018-01-20 08:38 | DS ---
Physical Examination Vital Signs: Vital Signs Temperature 98.1 F 01/20/18 06:00 Pulse Rate 79 01/20/18 06:00 Respiratory Rate 20 01/20/18 06:00 Blood Pressure 155/77 01/20/18 06:00 O2 Sat by Pulse Oximetry (%) 95 01/19/18 20:11 Constitutional: Yes: No Distress, Anxious Eyes: Yes: Conjunctiva Clear, EOM Intact HENT: Yes: Atraumatic, Normocephalic. No: Drooling Neck: Yes: Supple, Trachea Midline Cardiovascular: Yes: Regular Rate and Rhythm, S1, S2. No: Bradycardia, Tachycardia, Bruit, JVD, Rub Respiratory: Yes: Regular, CTA Bilaterally. No: Accessory Muscle Use, Cough, Diminished, Dullness Gastrointestinal: Yes: Normal Bowel Sounds, Soft. No: Ascites, Palpable Mass, Pulsatile Mass, Tenderness, Tenderness, Epigastrium, Vomiting ...Rectal Exam: Yes: Deferred Renal/: No: Anuria, Bladder Distention, CVA Tenderness - Left, CVA Tenderness - Right Musculoskeletal: No: Joint Stiffness, Joint Swelling Extremities: No: Amputation, Calf Tenderness, Cold, Cyanosis Edema: Yes Edema: LLE: Trace, RLE: Trace Integumentary: Yes: WNL Neurological: Yes: Alert, Oriented. No: Aphasia, Ataxia, Confusion, Dysarthria , Seizure, Tremors, Unresponsive, Unsteady Gait ...Motor Strength: WNL Psychiatric: Yes: WNL Labs: CBC, BMP 01/20/18 06:45 01/19/18 14:21 Discharge Summary Reason For Visit: CHEST PAIN, s/p CABG, DM type 2, PAF Current Active Problems Chest pain (Acute) Condition: Stable - Instructions Referrals: Ko Sullivan MD [Primary Care Provider] - - Home Medications Comprehensive Discharge Medication List: Ambulatory Orders Apixaban [Eliquis] 5 mg PO BID 12/02/17 Insulin Glargine,Hum.rec.anlog [Touarao Solostar] 80 unit SQ DAILY 12/02/17 Insulin Lispro [Humalog] 100 unit SQ ASDIR 12/02/17 Metformin HCl [Metformin HCl ER] 1,000 mg PO BID 12/02/17 Pantoprazole Sodium 40 mg PO DAILY 12/02/17 Ramipril 5 mg PO DAILY 12/02/17 Sitagliptin Phosphate [Januvia] 100 mg PO DAILY 12/02/17
[2018-01-20] MEDS: RAMIPRIL 5 MG CAPSULE (FP) PO SCH (09:39)
--- NOTE | 2018-01-20 09:41 | EKG ---
Test Reason : Blood Pressure : / mmHG Vent. Rate : 071 BPM Atrial Rate : 071 BPM P-R Int : 210 ms QRS Dur : 108 ms QT Int : 418 ms P-R-T Axes : 084 085 063 degrees QTc Int : 454 ms SINUS RHYTHM WITH 1ST DEGREE A-V BLOCK WITH FREQUENT PREMATURE VENTRICULAR COMPLEXES INCOMPLETE RBBB Confirmed by SARA JACKSON MD ([id number]) on 01/20/2018 9:41:17 AM Referred By: SANJAY FELIZ Confirmed By:SARA JACKSON MD
[2018-01-20] MEDS ORDERED: NITROGLYCERIN 2% OINTMENT - 1GM PACKET TD SCH (10:00)
[2018-01-20] MEDS ORDERED: PANTOPRAZOLE 40 MG TABLET (FP) PO SCH (10:00)
[2018-01-20] MEDS ORDERED: RAMIPRIL 5 MG CAPSULE (FP) PO SCH ×2 (10:00→22:00)
[2018-01-20] MEDS: APIXABAN 5 MG TABLET PO SCH (10:37)
[2018-01-20 12:42] VITALS: BP 154/75; PULSE 65; TEMP 98.3
== END 2018-01-20 17:23 | disposition home or self-care (01) ==
LOC: JER 10:20 → JERBED 14:28 → UNDOADMOB 14:28 → J4W 17:15 → JERBED 17:15 → INTOOBSV 18:10 → OBSVTOIN 18:10 → J4W 01-20 08:25
PROVIDERS: ADMIT Internal Medicine; ATTEND Internal Medicine
DX: R07.9 Chest pain, unspecified (principal); I10 Essential (primary) hypertension; I25.10 Atherosclerotic heart disease of native coronary artery without angina pectoris; I48.0 Paroxysmal atrial fibrillation; E11.9 Type 2 diabetes mellitus without complications; E78.5 Hyperlipidemia, unspecified; D64.9 Anemia, unspecified; K21.9 Gastro-esophageal reflux disease without esophagitis; Z79.4 Long term (current) use of insulin; Z79.84 Long term (current) use of oral hypoglycemic drugs; Z85.89 Personal history of malignant neoplasm of other organs and systems; Z85.47 Personal history of malignant neoplasm of testis; Z95.1 Presence of aortocoronary bypass graft; Z87.891 Personal history of nicotine dependence; Z95.818 Presence of other cardiac implants and grafts
CPT/HCPCS: 36415; 71045-TC-FY; 80053; 80061; 82550; 82962; 83036; 83721; 83735; 84100; 84484; 85025; 85027; 85610; 93005; 93010; 93351; 99283-25; G0378

== ENCOUNTER 2018-12-25 15:15 | Emergency (ER) | payer OTHER ==
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
[2018-12-25 15:30] VITALS: BP 149/52; PULSE 50; TEMP 98.4; BMI 32.5
[2018-12-25] MEDS ORDERED: KETOROLAC TROMETHAMINE 30 MG/1 ML VIAL IM ONE (15:30)
[2018-12-25] MEDS ORDERED: KETOROLAC TROMETHAMINE 30 MG/1 ML VIAL ONE (16:27)
[2018-12-25] MEDS ORDERED: CYCLOBENZAPRINE HCL 10 MG TABLET (FP) PO ONE (16:29)
[2018-12-25] MEDS ORDERED: diazePAM 5 MG TABLET ONE (16:32)
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
== END 2018-12-25 18:10 | disposition home or self-care (01) ==
LOC: JERFT 15:15
PROC: 3E0233Z Introduction of Anti-inflammatory into Muscle, Percutaneous Approach (ICD-10-PCS; principal; 2018-12-25)
DX: M54.5 Low back pain (principal); M54.2 Cervicalgia; M25.512 Pain in left shoulder; M25.511 Pain in right shoulder; V43.52XA Car driver injured in collision with other type car in traffic accident, initial encounter; Y92.414 Local residential or business street as the place of occurrence of the external cause; Y93.89 Activity, other specified; Y99.8 Other external cause status; I25.10 Atherosclerotic heart disease of native coronary artery without angina pectoris; I10 Essential (primary) hypertension; Z95.1 Presence of aortocoronary bypass graft; E10.9 Type 1 diabetes mellitus without complications; Z79.4 Long term (current) use of insulin; I48.0 Paroxysmal atrial fibrillation; Z79.01 Long term (current) use of anticoagulants; E78.00 Pure hypercholesterolemia, unspecified; J44.9 Chronic obstructive pulmonary disease, unspecified; Z86.2 Personal history of diseases of the blood and blood-forming organs and certain disorders involving the immune mechanism; Z85.038 Personal history of other malignant neoplasm of large intestine; Z85.47 Personal history of malignant neoplasm of testis
CPT/HCPCS: 71046-TC-FY; 72050-TC-FY; 72100-TC-FY; 99281-25

== ENCOUNTER 2019-04-14 14:52 | Inpatient (IN) | payer OTHER ==
--- NOTE | 2019-04-14 15:32 | PDOC ---
History of Present Illness <Shirley Fabian - Last Filed: 04/14/19 18:59> - History of Present Illness Initial Comments: Mr. Quevedo is a 64 y/o male with PMH of DM, HTN, a-fib (on xarelto, took today), gastric ulcer, HLD, COPD, presenting with diarrhea and dark stools that started this morning. Reports that he has had 3 episodes. Denies hematochezia, hematemesis, nausea/vomiting. Denies fever, abdominal pain, chest pain. Reports mild shortness of breath which is his baseline. Denies leg swelling, headache, dizziness, heart palpitations. No sick contacts, no recent travel, no recent antibiotic use, no hx of C. diff. PMH: testicular CA SurgHx: cholecystectomy, quadruple bypass, appendectomy, SocHx: 3 ppd smoker for 50 years <Napoleon Solares - Last Filed: 04/14/19 20:55> - General Chief Complaint: Diarrhea Stated Complaint: SENT BY PCP Time Seen by Provider: 04/14/19 15:12 Past History <FabianShirley - Last Filed: 04/14/19 18:59> - Past Medical History Anemia: Yes Asthma: No Cancer: Yes (testicular -> surgery + chemo in 's) Cardiac Disorders: Yes (ATRIAL [id number] "NUCLEAR CHIP" FOR EVENING RHYTHM MONITORING) CVA: No COPD: Yes CHF: No Dementia: No Diabetes: Yes (type 1 since 31 y/o) GI Disorders: Yes (ULCER) Disorders: No HTN: Yes Hypercholesterolemia: Yes Liver Disease: No Seizures: No Thyroid Disease: No - Surgical History Abdominal Surgery: No Appendectomy: Yes (S) Cardiac Surgery: Yes (2007 triple bypass, aortic valve GROWTH REMOVED, ablaTion) Cholecystectomy: Yes (2009) Lung Surgery: No Neurologic Surgery: No Orthopedic Surgery: No - Immunization History Immunization Up to Date: Yes - Suicide/Smoking/Psychosocial Hx Smoking Status: Yes Smoking History: Current every day smoker Have you smoked in the past 12 months: Yes Number of Cigarettes Smoked Daily: 20 If you are a former smoker, when did you quit?: 1 month ago Cigars Per Day: 0 Information on smoking cessation initiated: No 'Breaking Loose' booklet given: 01/19/18 Hx Alcohol Use: No Drug/Substance Use Hx: No Substance Use Type: None Hx Substance Use Treatment: No <Napoleon Solares - Last Filed: 04/14/19 20:55> - Past Medical History Allergies/Adverse Reactions: Allergies Allergy/AdvReac Type Severity Reaction Status Date / Time No Known Drug Allergies Allergy Verified 04/14/19 15:01 latex AdvReac Severe Rash Verified 04/14/19 15:01 TAPE AdvReac Severe Uncoded 04/14/19 15:01 Home Medications: Ambulatory Orders Insulin Lispro [Humalog] 0 unit SQ ASDIR 12/02/17 Pantoprazole Sodium 40 mg PO BID 12/02/17 metFORMIN HCL [Metformin ER Osmotic] 1,000 mg PO BID 12/02/17 Atorvastatin Ca [Lipitor] 40 mg PO HS 04/14/19 Dulaglutide [Trulicity] 0 mg SQ WEEKLY 04/14/19 Hydrochlorothiazide [Hctz -] 12.5 mg PO DAILY 04/14/19 Insulin Degludec [Tresiba] 80 unit SQ DAILY 04/14/19 Magnesium 0 mg PO BID 04/14/19 Ramipril [Altace] 2.5 mg PO DAILY 04/14/19 Rivaroxaban [Xarelto] 5 mg PO BID 04/14/19 Umeclidinium Brm/Vilanterol Tr [Anoro Ellipta 62.5-25 Mcg INH] 1 each IH DAILY 04/14/19 Review of Systems - Review of Systems Comments:: ROS GENERAL/CONSTITUTIONAL: No fever or chills. No weakness._ HEAD, EYES, EARS, NOSE AND THROAT: No change in vision. No ear pain or discharge. No sore throat._ CARDIOVASCULAR: No chest pain. Reports mild shortness of breath. RESPIRATORY: Denies cough, hemoptysis_ GASTROINTESTINAL: No nausea, vomiting. Reports diarrhea. Reports melena. Denies hematochezia. GENITOURINARY: No dysuria, frequency, or change in urination._ MUSCULOSKELETAL: No joint or muscle swelling or pain. No neck or back pain._ SKIN: No rash_ NEUROLOGIC: No headache, vertigo, loss of consciousness, or change in strength/ sensation._ ENDOCRINE: No increased thirst. No abnormal weight change_ HEMATOLOGIC/LYMPHATIC: No anemia, easy bleeding, or history of blood clots._ ALLERGIC/IMMUNOLOGIC: No hives or skin allergy._ <Napoleon Solares - Last Filed: 04/14/19 20:55> *Physical Exam - Vital Signs Last Vital Signs Temp Pulse Resp BP Pulse Ox 101.0 F H 57 L 16 131/61 93 L 04/14/19 18:35 04/14/19 18:35 04/14/19 18:35 04/14/19 18:35 04/14/19 18:35 <Shirley Fabian - Last Filed: 04/14/19 18:59> - Vital Signs Last Vital Signs Temp Pulse Resp BP Pulse Ox 98.4 F 45 L 18 128/44 L 99 04/14/19 14:58 04/14/19 14:58 04/14/19 14:58 04/14/19 14:58 04/14/19 14:58 - Physical Exam Comments: GENERAL: Awake, alert, and oriented to person/place/time, in no acute distress_ HEAD: No signs of trauma, normocephalic, atraumatic _ EYES: PERRLA, EOMI, sclera anicteric, conjunctiva clear_ ENT: Hearing grossly normal, nares patent, oropharynx clear without exudates. No uvular deviation. Moist mucosa_ NECK: Normal ROM, supple, no lymphadenopathy, JVD, or masses_ LUNGS: No distress, speaks in full sentences. Diffuse wheezes in bilateral upper and lower lung hartmann. HEART: Irregular, normal S1 and S2, no murmurs appreciated, peripheral pulses normal and equal bilaterally._ ABDOMEN: Soft, nontender, normoactive bowel sounds. No guarding, no rebound. No masses. RECTAL: Normal tone. No masses. No blood per rectum. EXTREMITIES: Normal inspection, Normal range of motion, no edema. No clubbing or cyanosis. NEUROLOGICAL: Cranial nerves II through XII grossly intact. Normal speech, normal gait, no focal sensorimotor deficits _ SKIN: Warm, Dry, normal turgor, no rashes or lesions noted. No bruising. <BeckNapoleon - Last Filed: 04/14/19 20:55> ED Treatment Course - LABORATORY CBC & Chemistry Diagram: 04/14/19 16:30 04/14/19 16:30 - ADDITIONAL ORDERS Additional order review: Laboratory Results 04/14/19 04/14/19 04/14/19 16:30 16:30 15:40 PT with INR 19.10 H INR 1.61 H PTT (Actin FS) 35.5 Sodium 139 Potassium 4.0 Chloride 100 Carbon Dioxide 28 Anion Gap 11 BUN 26.4 H Creatinine 1.5 H Est GFR (CKD-EPI)AfAm 55.82 Est GFR (CKD-EPI)NonAf 48.16 Random Glucose 120 H Calcium 8.7 Total Bilirubin 0.6 AST 20 ALT 29 Alkaline Phosphatase 89 Total Protein 6.9 Albumin 3.4 Stool Occult Blood Negative 04/14/19 16:30 RBC 4.66 MCV 82.8 MCHC 33.3 RDW 16.1 H MPV 8.2 Neutrophils % 75.6 Lymphocytes % 9.5 Monocytes % 13.8 H D Eosinophils % 0.7 Basophils % 0.4 - Medications Given in the ED: ED Medications Discontinued Medications Generic Name Dose Route Start Last Admin Trade Name Freq PRN Reason Stop Dose Admin Sodium Chloride 1,000 mls @ 1,000 mls/hr 04/14/19 15:45 04/14/19 16:42 Normal Saline - IV 04/14/19 16:44 1,000 mls/hr ASDIR STA Administration <Shirley Fabian - Last Filed: 04/14/19 18:59> - LABORATORY CBC & Chemistry Diagram: 04/14/19 16:30 04/14/19 16:30 <Napoleon Solares - Last Filed: 04/14/19 20:55> Medical Decision Making - Medical Decision Making 64M with extensive PMH presenting with diarrhea and dark stools that started this morning. Hx of a-fib, on xarelto (took this morning), GI bleed. Obtain CBC, CMP, coags, EKG, stool occult blood test. 04/14/19 16:15 EKG shows HR 78, atrial fibrillation, right axis deviation, QTc 478. 04/14/19 18:15 Labs reviewed. Hgb/Hct at baseline. No anemia. Mild increase in BUN/Cr. CXR negative. Plan to f/u with PCP and strict return precautions. 04/14/19 20:45 Spoke with ELISEO Renae, who accepts the patient for admission. <Napoleon Solares - Last Filed: 04/14/19 20:55> *DC/Admit/Observation/Transfer <Shirley Fabian - Last Filed: 04/14/19 18:59> - Discharge Dispostion Decision to Admit order: Yes <Napoleon Solares - Last Filed: 04/14/19 20:55> Diagnosis at time of Disposition: Diarrhea Qualifiers: Diarrhea type: unspecified type Qualified Code(s): R19.7 - Diarrhea, unspecified - Discharge Dispostion Condition at time of disposition: Stable
[2019-04-14] MEDS ORDERED: SODIUM CHLORIDE 1,000 ML IV STA (15:45)
[2019-04-14 16:59] LABS: BASO % 0.4 % (0-2.0); EOS % 0.7 % (0-4.5); HEMATOCRIT 38.6 % (35.4-49); HEMOGLOBIN 12.8 GM/dL (11.7-16.9); LYMPH % 9.5 % (8-40); MCH 27.6 pg (25.7-33.7); MCHC 33.3 g/dl (32.0-35.9); MEAN CELL VOLUME 82.8 fl (80-96); MEAN PLT VOLUME 8.2 fl (7.5-11.1); MONO % 13.8 % (3.8-10.2); NEUT % 75.6 % (42.8-82.8); PLATELET COUNT 214 K/MM3 (134-434); RBC 4.66 M/mm3 (4.00-5.60); RDW 16.1 % (11.9-15.9); WHITE BLOOD COUNT 8.4 K/mm3 (4.0-10.0)
--- NOTE | 2019-04-14 17:00 | PDOC ---
Documentation entered by Winnie Solomon SCRIBE, acting as scribe for Shirley Fabain MD. Shirley Fabian MD: This documentation has been prepared by the Neha burton Sammi, SCRIBE, under my direction and personally reviewed by me in its entirety. I confirm that the documentation accurately reflects all work, treatment, procedures, and medical decision making performed by me. Attending Attestation - Resident Resident Name: Napoleon Solares - HPI HPI: 04/14/19 16:14 The patient is a 64 year old male, with a significant PMH of GI bleed with melana, HTN, HLD, DM, ulcers, Afib, coronary bypass, COPD, who presents to the emergency department for evaluation of 1 day of multiple episodes of diarrhea, dark in color, similar to when he had a GI bleed in the past. Last episode around 11:30. The patient complains of general malaise, as well. He notes his shortness of breath is at his baseline for his COPD. Denies recent travel or sick contact. Denies chest pain, headache, and dizziness. Denies fever, chills, nausea, vomiting. Denies dysuria, frequency, urgency and hematuria. Allergies: Latex Social history: Current smoker PCP: Johnna 04/14/19 16:46 - Physicial Exam PE: 04/14/19 16:28 CONSTITUTIONAL: Well-appearing; well-nourished; in no apparent distress HEAD: Normocephalic; atraumatic EYES: PERRL; EOM intact ENMT: External appears normal; normal oropharynx NECK: Supple; non-tender; no cervical lymphadenopathy CARD: Normal S1, S2; no murmurs, rubs, or gallops RESP: (+)coarse ronchi. Normal chest excursion with respiration; breath sounds clear and equal bilaterally; no wheezes, or rales ABD: Soft, non-distended; non-tender; no palpable organomegaly, no palpable hernias EXT: Normal ROM in all four extremities; non-tender to palpation; distal pulses intact SKIN: Warm, dry, no rash NEURO: No focal neurological deficiencies. - Medical Decision Making 04/14/19 16:54 pt seen and examined at bedside not in acute distress c/o feeling tired concerned that he had 3 loose black stools this morning last episode 11:30am. Pt says this is how he felt when he had a GI bleed in the past. Differential diagnosis includes but not limited to Gi bleed, gastrointestinal enteritis. Will obtain cbc,cmp, ua, stool for occult blood and reevaluate for dc home. 04/14/19 18:25 Pt's labs reviewed no significant drop in hgb, pt's symptoms more consistent with gastroenteritis with no further episodes of diarrhea, stable hgb and guiac negative in Ed with mildly elevated creatine. Pt stable for dc home with out pt f/u with pcp, return for abdominal pain, rectal bleeding, dizziness or as needed. Pt to inc fluid intake and f/u with pcp in the nexy 48-72hrs.
[2019-04-14 17:24] LABS: ALBUMIN 3.4 g/dl (3.4-5.0); BILIRUBIN,TOTAL 0.6 mg/dL (0.2-1); BLOOD UREA NITROGEN 26.4 mg/dL (7-18); CALCIUM 8.7 mg/dL (8.5-10.1); CREATININE 1.5 mg/dL (0.55-1.3); TOT PROT 6.9 g/dl (6.4-8.2)
[2019-04-14 17:43] LABS: INR 1.61 (0.83-1.09); PROTHROMBIN TIME (PATIENT) 19.1 SEC (9.7-13.0)
[2019-04-14 17:46] LABS: ACTIVATED PTT 35.5 SECONDS (25.2-36.5)
[2019-04-14] MEDS ORDERED: SODIUM CHLORIDE 0.9% 500 ML INFUS.BAG IV ONE (18:39)
[2019-04-14] MEDS ORDERED: ACETAMINOPHEN 500 MG TABLET (FP) PO ONE (18:40)
[2019-04-14] MEDS ORDERED: ACETAMINOPHEN 325 MG TABLET (FP) ONE (18:53)
[2019-04-14] MEDS ORDERED: CEFTRIAXONE 1 GM in DEXTROSE 5%-WATER - 50 ML IVPB ONE (19:45)
[2019-04-14] MEDS ORDERED: AZITHROMYCIN IVPB 500 MG in DEXTROSE 5%-WATER - 250 ML IVPB ONE (19:46)
[2019-04-14 21:02] LABS: BASO % 1.2 % (0-2.0); EOS % 0.4 % (0-4.5); HEMATOCRIT 36.8 % (35.4-49); HEMOGLOBIN 11.9 GM/dL (11.7-16.9); LYMPH % 9.6 % (8-40); MCH 27.1 pg (25.7-33.7); MCHC 32.5 g/dl (32.0-35.9); MEAN CELL VOLUME 83.4 fl (80-96); MONO % 13.4 % (3.8-10.2); NEUT % 75.4 % (42.8-82.8); PLATELET COUNT 186 K/MM3 (134-434); RBC 4.41 M/mm3 (4.00-5.60); RDW 15.5 % (11.9-15.9)
[2019-04-14] MEDS ORDERED: AZITHROMYCIN IVPB 500 MG/250 ML BAG IVPB ONE (21:09)
[2019-04-14] MEDS ORDERED: CEFTRIAXONE 1 GM/50 ML BAG ONE (21:09)
--- NOTE | 2019-04-14 21:12 | PDOC ---
*Physical Exam - Vital Signs Last Vital Signs Temp Pulse Resp BP Pulse Ox 101.0 F H 57 L 16 131/61 93 L 04/14/19 18:35 04/14/19 18:35 04/14/19 18:35 04/14/19 18:35 04/14/19 18:35 ED Treatment Course - LABORATORY CBC & Chemistry Diagram: 04/14/19 20:05 04/14/19 16:30 - ADDITIONAL ORDERS Additional order review: Laboratory Results 04/14/19 04/14/19 04/14/19 16:30 16:30 15:40 PT with INR 19.10 H INR 1.61 H PTT (Actin FS) 35.5 Sodium 139 Potassium 4.0 Chloride 100 Carbon Dioxide 28 Anion Gap 11 BUN 26.4 H Creatinine 1.5 H Est GFR (CKD-EPI)AfAm 55.82 Est GFR (CKD-EPI)NonAf 48.16 Random Glucose 120 H Calcium 8.7 Total Bilirubin 0.6 AST 20 ALT 29 Alkaline Phosphatase 89 Total Protein 6.9 Albumin 3.4 Stool Occult Blood Negative 04/14/19 16:30 RBC 4.66 MCV 82.8 MCHC 33.3 RDW 16.1 H MPV 8.2 Neutrophils % 75.6 Lymphocytes % 9.5 Monocytes % 13.8 H D Eosinophils % 0.7 Basophils % 0.4 - Medications Given in the ED: ED Medications Discontinued Medications Generic Name Dose Route Start Last Admin Trade Name Freq PRN Reason Stop Dose Admin Acetaminophen 975 mg 04/14/19 18:40 04/14/19 18:55 Tylenol - PO 04/14/19 18:41 975 mg ONCE ONE Administration Sodium Chloride 1,000 mls @ 1,000 mls/hr 04/14/19 15:45 04/14/19 16:42 Normal Saline - IV 04/14/19 16:44 1,000 mls/hr ASDIR STA Administration Sodium Chloride 1,000 ml 04/14/19 18:39 04/14/19 18:55 Normal Saline - IV 04/14/19 18:40 1,000 ml ONCE ONE Administration Medical Decision Making - Medical Decision Making 04/14/19 20:33 Pt comes with black stools and some dizziness and fear that he had GI bleed. No pepto bislol use. Pt has normal Hb/HCT and guaiac neg stools. He has normal labs. However in the ER he spiked a temp. I spoke to his PMD Nate; pt has no localization of pain. 04/15/19 00:49 BNP elevated at 1800; card enzymes normal; CBC shows that Hb HCT dropped minimally; likely due to hydration *DC/Admit/Observation/Transfer Diagnosis at time of Disposition: Diarrhea Qualifiers: Diarrhea type: unspecified type Qualified Code(s): R19.7 - Diarrhea, unspecified - Discharge Dispostion Condition at time of disposition: Stable - Referrals - Patient Instructions - Post Discharge Activity
[2019-04-14] MEDS ORDERED: ALBUTEROL SO4 2.5/IPRATROPIUM 0.5 INH SOL 3 ML VIAL.NEB. NEB PRN (22:05)
--- NOTE | 2019-04-14 22:35 | HP ---
Admitting History and Physical - Primary Care Physician PCP: Ko Sullivan - Admission Chief Complaint: Diarrhea, Black Stools, SOB, Generalized Malaise History of Present Illness: This is a 64 y/o man with a PMHx of HTN, HLD, Afib (on Xarelto), CAD s/p Quadriple Bypass, DM, COPD, Gastric Ulcer, Testicular Ca (Exploratory Sx, Chemo) . Who presents to the ED with watery diarrhea, black tarry stools x today. Patient reports being bloated for several days with decreased appetite taking Pepto Bismol 5 days ago. Patient reports having chronic SOB and non-productive cough. Patient denies fever, chills, dizziness, CP, palpitations, AP, N/V, hematochezia, hematuria, dysuria. Patient last EGD was 2015, last Colonoscopy unknown History Source: Patient Limitations to Obtaining History: No Limitations - Past Medical History STAGE DIRECTOR: Yes: Syncope, Vertigo. No: Alzheimer's, CVA, Dementia, Migraine, Multiple Sclerosis, Peripheral Neuropathy, Parkinson's, Seizure, TIA, Other Cardiovascular: Yes: AFIB, CAD, HTN, Hyperlipdemia, Other (A flutter) Pulmonary: Yes: COPD. No: O2 Dependent Gastrointestinal: Yes: GERD, Other (gastric ulcer) Hepatobiliary: Yes: Cholecystitis (Cholecystectomy) Renal/: Yes: Renal Inusuff, Cancer (Testicular) Endocrine: Yes: Diabetes Mellitus - Past Surgical History Past Surgical History: Yes: Appendectomy, CABG, Cholecystectomy Additional Past Surgical History: Aortic Valve Growth removal Ablation - Smoking History Smoking history: Current every day smoker Have you smoked in the past 12 months: Yes Aproximately how many cigarettes per day: 20 - Alcohol/Substance Use Hx Alcohol Use: No History of Substance Use: reports: None - Social History Usual Living Arrangement: Yes: With Spouse ADL: Independent 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 History of Recent Travel: No Home Medications - Allergies Allergies/Adverse Reactions: Allergies Allergy/AdvReac Type Severity Reaction Status Date / Time No Known Drug Allergies Allergy Verified 04/14/19 15:01 latex AdvReac Severe Rash Verified 04/14/19 15:01 TAPE AdvReac Severe Uncoded 04/14/19 15:01 - Home Medications Home Medications: Ambulatory Orders Insulin Lispro [Humalog] 0 unit SQ ASDIR 12/02/17 Pantoprazole Sodium 40 mg PO BID 12/02/17 metFORMIN HCL [Metformin ER Osmotic] 1,000 mg PO BID 12/02/17 Atorvastatin Ca [Lipitor] 40 mg PO HS 04/14/19 Dulaglutide [Trulicity] 0 mg SQ WEEKLY 04/14/19 Hydrochlorothiazide [Hctz -] 12.5 mg PO DAILY 04/14/19 Insulin Degludec [Tresiba] 80 unit SQ DAILY 04/14/19 Magnesium 0 mg PO BID 04/14/19 Ramipril [Altace] 2.5 mg PO DAILY 04/14/19 Rivaroxaban [Xarelto] 5 mg PO BID 04/14/19 Umeclidinium Brm/Vilanterol Tr [Anoro Ellipta 62.5-25 Mcg INH] 1 each IH DAILY 04/14/19 Family Disease History - Family Disease History Family Disease History: Diabetes: Grandparent, Heart Disease: Father () , CA: Mother (), Other: Son (x2 Alive and Healthy) Review of Systems - Review of Systems Constitutional: reports: Loss of Appetite, Malaise Eyes: reports: No Symptoms HENT: reports: No Symptoms Neck: reports: No Symptoms Cardiovascular: reports: Shortness of Breath Respiratory: reports: Cough, SOB Gastrointestinal: reports: Bloating, Melena Genitourinary: reports: No Symptoms Breasts: reports: No Symptoms Reported Musculoskeletal: reports: No Symptoms Integumentary: reports: No Symptoms Neurological: reports: No Symptoms Endocrine: reports: No Symptoms Hematology/Lymphatic: reports: No Symptoms Psychiatric: reports: No Symptoms Pain Intensity: 0 Physical Examination Vital Signs: Vital Signs Temperature 101.0 F H 04/14/19 18:35 Pulse Rate 57 L 04/14/19 18:35 Respiratory Rate 16 04/14/19 18:35 Blood Pressure 131/61 04/14/19 18:35 O2 Sat by Pulse Oximetry (%) 93 L 04/14/19 18:35 Constitutional: Yes: Well Nourished, No Distress, Calm, Obese Eyes: Yes: WNL, Conjunctiva Clear, EOM Intact, PERRL HENT: Yes: WNL, Atraumatic, Normocephalic Neck: Yes: WNL, Supple, Trachea Midline Cardiovascular: Yes: Pulse Irregular, S1, S2 Respiratory: Yes: Rhonchi, Wheezes Gastrointestinal: Yes: Normal Bowel Sounds, Abdomen, Obese, Hernia (reducible umbilical). No: Tenderness, Tenderness, Epigastrium, Tenderness, Rebound ...Rectal Exam: Yes: Guaiac Negative, Sphincter Tone Normal Renal/: Yes: WNL Breast(s): Yes: WNL Musculoskeletal: Yes: WNL Extremities: Yes: WNL Edema: No Peripheral Pulses WNL: Yes ...Motor Strength: WNL Psychiatric: Yes: WNL, Alert, Oriented Labs: CBC, BMP 04/14/19 20:05 04/14/19 16:30 Laboratory Results - last 24 hr 04/14/19 04/14/19 04/14/19 15:40 16:30 16:30 WBC 8.4 RBC 4.66 Hgb 12.8 Hct 38.6 MCV 82.8 MCH 27.6 MCHC 33.3 RDW 16.1 H Plt Count 214 D MPV 8.2 Absolute Neuts (auto) 6.3 Neutrophils % 75.6 Lymphocytes % 9.5 Monocytes % 13.8 H D Eosinophils % 0.7 Basophils % 0.4 Nucleated RBC % 0 PT with INR INR PTT (Actin FS) Sodium 139 Potassium 4.0 Chloride 100 Carbon Dioxide 28 Anion Gap 11 BUN 26.4 H Creatinine 1.5 H Est GFR (CKD-EPI)AfAm 55.82 Est GFR (CKD-EPI)NonAf 48.16 Random Glucose 120 H Calcium 8.7 Total Bilirubin 0.6 AST 20 ALT 29 Alkaline Phosphatase 89 Creatine Kinase Troponin I Total Protein 6.9 Albumin 3.4 Stool Occult Blood Negative 04/14/19 04/14/19 04/14/19 16:30 20:05 20:05 WBC 8.0 RBC 4.41 Hgb 11.9 Hct 36.8 MCV 83.4 MCH 27.1 MCHC 32.5 RDW 15.5 Plt Count 186 MPV 8.0 Absolute Neuts (auto) 6.0 Neutrophils % 75.4 Lymphocytes % 9.6 Monocytes % 13.4 H Eosinophils % 0.4 Basophils % 1.2 Nucleated RBC % 0 PT with INR 19.10 H INR 1.61 H PTT (Actin FS) 35.5 Sodium Potassium Chloride Carbon Dioxide Anion Gap BUN Creatinine Est GFR (CKD-EPI)AfAm Est GFR (CKD-EPI)NonAf Random Glucose Calcium Total Bilirubin AST ALT Alkaline Phosphatase Creatine Kinase 91 Troponin I 0.05 Total Protein Albumin Stool Occult Blood Intake & Output 04/11/19 04/12/19 04/13/19 04/14/19 23:59 23:59 23:59 23:59 Weight 108.862 kg Imaging - Results Chest X-ray: Image Reviewed EKG: Image Reviewed Problem List - Problems (1) GI bleed Code(s): K92.2 - GASTROINTESTINAL HEMORRHAGE, UNSPECIFIED (2) Diarrhea Code(s): R19.7 - DIARRHEA, UNSPECIFIED Qualifiers: Diarrhea type: unspecified type Qualified Code(s): R19.7 - Diarrhea, unspecified (3) COPD exacerbation Code(s): J44.1 - CHRONIC OBSTRUCTIVE PULMONARY DISEASE W (ACUTE) EXACERBATION (4) Acute renal insufficiency Code(s): N28.9 - DISORDER OF KIDNEY AND URETER, UNSPECIFIED (5) DM type 2 (diabetes mellitus, type 2) Code(s): E11.9 - TYPE 2 DIABETES MELLITUS WITHOUT COMPLICATIONS Qualifiers: Diabetes mellitus alf insulin use: with alf use Chronic kidney disease stage: stage 2 (mild) (6) Paroxysmal A-fib Code(s): I48.0 - PAROXYSMAL ATRIAL FIBRILLATION (7) Tobacco dependence Code(s): F17.200 - NICOTINE DEPENDENCE, UNSPECIFIED, UNCOMPLICATED Assessment/Plan This is a 64 y/o man with a PMHx of HTN, HLD, Afib (on Xarelto), CAD s/p Quadriple Bypass, DM, COPD, Testicular Ca ( Exploratory sx, Chemo). Admitted to Telemetry for GI Bleed, COPD Exacerbation, Fever of unknown Origin for further evaluation of their emergent condition. Plan: See Problem List FEN Replete lytes prn Clear Diabetic Diet DVT ppx OOB SCDs Hold Xarelto for now Dispo: Requires Inpatient Care Visit type - Emergency Visit Emergency Visit: Yes ED Registration Date: 04/14/19 Care time: The patient presented to the Emergency Department on the above date and was hospitalized for further evaluation of their emergent condition. - New Patient This patient is new to me today: Yes Date on this admission: 04/14/19 - Critical Care Critical Care patient: No
[2019-04-15] MEDS ORDERED: ATORVASTATIN CA 40 MG TABLET (FP) ONE (00:05)
[2019-04-15 00:08] LABS: N-TERMINAL BNP 1817.8 pg/ml (5-125)
[2019-04-15] MEDS: ATORVASTATIN CA 40 MG TABLET (FP) PO SCH ×2 (00:15→21:12)
[2019-04-15 00:28] LABS: EPI CELLS 3.5 /HPF (0-5/HPF); HYALINE CASTS 39 /lpf (0-8); URINE APPEARANCE CLOUDY; URINE BACTERIA 0 /hpf (NEGATIVE); URINE BILIRUBIN 1+ (NEGATIVE); URINE COLOR DK YELLOW; URINE GLUCOSE (UA) NEGATIVE (NEGATIVE); URINE KETONE TRACE (NEGATIVE); URINE LEUK ESTERASE NEGATIVE (NEGATIVE); URINE NITRITE NEGATIVE (NEGATIVE); URINE PROTEIN 3+ (NEGATIVE); URINE RBC 1 /hpf (0-4); URINE WBC 2 /hpf (0-5)
[2019-04-15] MEDS ORDERED: ACETAMINOPHEN 325 MG TABLET (FP) PO PRN (01:00)
[2019-04-15 04:49] VITALS: BMI 27.9
[2019-04-15 05:16] LABS: ARTERIAL BLD GAS O2 SATURATION 95.7 % (95-98); ARTERIAL BLOOD GAS BASE EXCESS 0.4 meq/l (-2-2); ARTERIAL BLOOD GAS PCO2 33.2 mmHg (35-45); ARTERIAL BLOOD GAS pH 7.46 (7.35-7.45); CARBOXYHEMOGLOBIN 1.6 % (0-2)
[2019-04-15 05:20] LABS: ALLENS TEST POSITIVE
--- NOTE | 2019-04-15 07:46 | PN ---
Physical Exam: HPI : The patient is a 64 year old male, with a significant PMH of GI bleed with melana, HTN, HLD, DM, ulcers, Afib, coronary bypass, COPD, who presents to the emergency department for evaluation of 1 day of 3 episodes of diarrhea, dark in color, similar to when he had a GI bleed in the past. Last episode around was 11:30pm on Tuesday. The patient stated that he felt "rundown", He notes his shortness of breath is at his baseline for his COPD. Denied recent travel or sick contact. SUBJECTIVE: Patient seen and examined. Patient OOB walking around the room on his phone. Patient denies any discomfort no diarrhea since he left home. Denies CP, fever, chills, SHOB, n/v/d. OBJECTIVE: Vital Signs Period Temp Pulse Resp BP Sys/Perez Pulse Ox Last 24 Hr 98.4 F-101.0 F 45-66 16-20 127-148/44-78 93-99 CONSTITUTIONAL: Well-appearing; well-nourished; in no apparent distress HEAD: Normocephalic; atraumatic EYES: PERRL; EOM intact ENMT: External appears normal; normal oropharynx NECK: Supple; non-tender; no cervical lymphadenopathy CARD: Normal S1, S2 RESP: (+)coarse ronchi SENA. Normal chest excursion with respiration; breath sounds clear and equal bilaterally; no wheezes, or rales ABD: Soft, non-distended; non-tender; no palpable organomegaly, no palpable hernias EXT: Normal ROM in all four extremities; non-tender to palpation; distal pulses intact SKIN: Warm, dry, no rash NEURO: No focal neurological deficiencies. Laboratory Results - last 24 hr 04/14/19 04/14/19 04/14/19 15:40 16:30 16:30 WBC 8.4 RBC 4.66 Hgb 12.8 Hct 38.6 MCV 82.8 MCH 27.6 MCHC 33.3 RDW 16.1 H Plt Count 214 D MPV 8.2 Absolute Neuts (auto) 6.3 Neutrophils % 75.6 Lymphocytes % 9.5 Monocytes % 13.8 H D Eosinophils % 0.7 Basophils % 0.4 Nucleated RBC % 0 PT with INR INR PTT (Actin FS) Puncture Site ABG pH ABG pCO2 at Pt Temp ABG pO2 at Pt Temp ABG HCO3 ABG O2 Sat (Measured) ABG O2 Content ABG Base Excess Gilbert Test Carboxyhemoglobin Methemoglobin O2 Delivery Device Oxygen Flow Rate Sodium 139 Potassium 4.0 Chloride 100 Carbon Dioxide 28 Anion Gap 11 BUN 26.4 H Creatinine 1.5 H Est GFR (CKD-EPI)AfAm 55.82 Est GFR (CKD-EPI)NonAf 48.16 POC Glucometer Random Glucose 120 H Calcium 8.7 Total Bilirubin 0.6 AST 20 ALT 29 Alkaline Phosphatase 89 Creatine Kinase Troponin I B-Natriuretic Peptide Total Protein 6.9 Albumin 3.4 Urine Color Urine Appearance Urine pH Ur Specific [place] Urine Protein Urine Glucose (UA) Urine Ketones Urine Blood Urine Nitrite Urine Bilirubin Urine Urobilinogen Ur Leukocyte Esterase Urine WBC (Auto) Urine RBC (Auto) Urine Casts (Auto) U Epithel Cells (Auto) Urine Bacteria (Auto) Stool Occult Blood Negative 04/14/19 04/14/19 04/14/19 16:30 20:05 20:05 WBC 8.0 RBC 4.41 Hgb 11.9 Hct 36.8 MCV 83.4 MCH 27.1 MCHC 32.5 RDW 15.5 Plt Count 186 MPV 8.0 Absolute Neuts (auto) 6.0 Neutrophils % 75.4 Lymphocytes % 9.6 Monocytes % 13.4 H Eosinophils % 0.4 Basophils % 1.2 Nucleated RBC % 0 PT with INR 19.10 H INR 1.61 H PTT (Actin FS) 35.5 Puncture Site ABG pH ABG pCO2 at Pt Temp ABG pO2 at Pt Temp ABG HCO3 ABG O2 Sat (Measured) ABG O2 Content ABG Base Excess Gilbert Test Carboxyhemoglobin Methemoglobin O2 Delivery Device Oxygen Flow Rate Sodium Potassium Chloride Carbon Dioxide Anion Gap BUN Creatinine Est GFR (CKD-EPI)AfAm Est GFR (CKD-EPI)NonAf POC Glucometer Random Glucose Calcium Total Bilirubin AST ALT Alkaline Phosphatase Creatine Kinase 91 Troponin I 0.05 B-Natriuretic Peptide 1817.8 H Total Protein Albumin Urine Color Urine Appearance Urine pH Ur Specific [place] Urine Protein Urine Glucose (UA) Urine Ketones Urine Blood Urine Nitrite Urine Bilirubin Urine Urobilinogen Ur Leukocyte Esterase Urine WBC (Auto) Urine RBC (Auto) Urine Casts (Auto) U Epithel Cells (Auto) Urine Bacteria (Auto) Stool Occult Blood 04/15/19 04/15/1904/15/19 00:15 05:05 06:25 WBC RBC Hgb Hct MCV MCH MCHC RDW Plt Count MPV Absolute Neuts (auto) Neutrophils % Lymphocytes % Monocytes % Eosinophils % Basophils % Nucleated RBC % PT with INR INR PTT (Actin FS) Puncture Site Right radial ABG pH 7.46 H ABG pCO2 at Pt Temp 33.2 L ABG pO2 at Pt Temp 79.0 L ABG HCO3 23.3 ABG O2 Sat (Measured) 95.7 ABG O2 Content 15.7 ABG Base Excess 0.4 Gilbert Test Positive Carboxyhemoglobin 1.6 Methemoglobin 0.0 O2 Delivery Device N/c Oxygen Flow Rate 2l Sodium Potassium Chloride Carbon Dioxide Anion Gap BUN Creatinine Est GFR (CKD-EPI)AfAm Est GFR (CKD-EPI)NonAf POC Glucometer 87 Random Glucose Calcium Total Bilirubin AST ALT Alkaline Phosphatase Creatine Kinase Troponin I B-Natriuretic Peptide Total Protein Albumin Urine Color Dk yellow Urine Appearance Cloudy Urine pH 5.0 Ur Specific [place] 1.027 Urine Protein 3+ H Urine Glucose (UA) Negative Urine Ketones Trace H Urine Blood Negative Urine Nitrite Negative Urine Bilirubin 1+ H Urine Urobilinogen 1.0 Ur Leukocyte Esterase Negative Urine WBC (Auto) 2 Urine RBC (Auto) 1 Urine Casts (Auto) 39 U Epithel Cells (Auto) 3.5 Urine Bacteria (Auto) 0 Stool Occult Blood Active Medications Generic Name Dose Route Start Last Admin Trade Name Freq PRN Reason Stop Dose Admin Acetaminophen 650 mg 04/15/19 01:00 Tylenol - PO Q6H PRN FEVER Albuterol/Ipratropium 1 amp 04/14/19 22:05 04/15/19 05:21 Duoneb - NEB 1 amp Q6H PRN Administration SHORTNESS OF BREATH Atorvastatin Calcium 40 mg 04/14/19 22:00 04/15/19 00:15 Lipitor - PO 40 mg HS WINDY Administration Hydrochlorothiazide 12.5 mg 04/15/19 10:00 Hctz - PO DAILY [facility] Azithromycin 500 mg in 250 mls @ 250 mls/hr 04/15/19 10:00 Zithromax 500mg Ivpb (Pre-Docked) IVPB DAILY [facility] Ceftriaxone Sodium 1 gm/ 50 mls @ 100 mls/hr 04/15/19 10:00 Sodium Chloride IVPB DAILY [facility] Protocol Nicotine 14 mg 04/15/19 10:00 Nicoderm Patch - TD DAILY [facility] Umeclidinium/Vilanterol 1 puff 04/15/19 10:00 Anoro Ellipta 62.5-25 Mcg Inh IH DAILY [facility] ASSESSMENT/PLAN: This is a 64 y/o man with a PMHx of HTN, HLD, Afib (on Xarelto), CAD s/p Quadriple Bypass, DM, COPD, Testicular Ca ( Exploratory sx, Chemo). Admitted to Telemetry for GI Bleed, COPD Exacerbation, Fever of unknown Origin for further evaluation of their emergent condition. GI bleed -Guaic negative -GI Consulted --Per Dr. Youssef --Advance diet --Repeat CBC ordered for afternoon. If continued dwindling H/H / overt melena, upper endoscopy could be considered while inpatient if cleared from cardiology standpoint (episodes of V-Tach). Otherwise if stable h/ H, can follow-up with Dr. James as outpatient. --Protonix 40mg once daily --Discussed potential EGD with Mr. Quevedo. Discussed potential risks of the procedure like but not limited to bleeding, perforation requiring surgery to repair, infection, sedation medication effects all of which could be potentially life threatening. He has agreed to the procedure. Diarrhea -No episodes since he left home Acute COPD exacerbation -Chest Xray: Negative -Chronic productive cough: Green Sputum -Continue Ellipta 62.5-25mcg INH -Pulmonary Consult-Dr. OSORIO --short course of medrol --inhaled bronchodilators standing and PRN ---azithromycin 500mg IVPB - 4 bags --O2 to keep SpO2 >90% --smoking cessation discussed --continue anticoagulation --outpt PFTs and f/u Acute renal insufficiency -GFR 63.08 DM type 2 (diabetes mellitus, type 2) -Tresiba 50 units (pt's own medication) old order is 80units. PT states the new order is 50units. still needs to bring. Pt states he will let her know and he only uses it when he needs it which is not often. -Trulicity SQ once weekly- dose due today (pt's own medication) brought medication -Novolog Sliding Scale -Metformin 1000mg BID Paroxysmal A-fib -on Xarelto 5mg PO BID -Stable Tobacco dependence -2pk/day smoker -Nicotine Patch 21mg FEN -Replete lytes prn -Diabetic, low sodium Diet DVT ppx -OOB -SCDs Dispo -Inpatient -Full code -Discharge Planning Visit type - Emergency Visit Emergency Visit: Yes ED Registration Date: 04/14/19 Care time: The patient presented to the Emergency Department on the above date and was hospitalized for further evaluation of their emergent condition. - New Patient This patient is new to me today: Yes Date on this admission: 04/15/19 - Critical Care Critical Care patient: No
[2019-04-15 08:19] LABS: BASO % 0.4 % (0-2.0); HEMATOCRIT 34.3 % (35.4-49); HEMOGLOBIN 11.6 GM/dL (11.7-16.9); LYMPH % 11.4 % (8-40); MCH 27.5 pg (25.7-33.7); MCHC 33.7 g/dl (32.0-35.9); MEAN CELL VOLUME 81.5 fl (80-96); MEAN PLT VOLUME 8.3 fl (7.5-11.1); MONO % 13.2 % (3.8-10.2); PLATELET COUNT 206 K/MM3 (134-434); RBC 4.21 M/mm3 (4.00-5.60); RDW 15.7 % (11.9-15.9); WHITE BLOOD COUNT 6.3 K/mm3 (4.0-10.0)
[2019-04-15 08:43] LABS: CALCIUM 8.3 mg/dL (8.5-10.1); CREATININE 1.2 mg/dL (0.55-1.3); POTASSIUM 3.9 mmol/L (3.5-5.1)
[2019-04-15] MEDS ORDERED: cefTRIAXone SODIUM 1 GM VIAL ONE (08:50)
[2019-04-15] MEDS ORDERED: SODIUM CHLORIDE 50 ML IVPB ONE (08:50)
--- NOTE | 2019-04-15 09:03 | EKG ---
Test Reason : Blood Pressure : / mmHG Vent. Rate : 078 BPM Atrial Rate : 078 BPM P-R Int : 000 ms QRS Dur : 110 ms QT Int : 420 ms P-R-T Axes : 000 124 009 degrees QTc Int : 478 ms SINUS RHYTHM WITH FREQUEN PREMATURE VENTRICULAR BEATS RIGHT AXIS DEVIATION CANNOT RULE OUT ANTERIOR INFARCT , AGE UNDETERMINED ABNORMAL ECG Confirmed by EUGENIE ABDALLA MD ([id number] on 04/15/2019 9:03:15 AM Referred By: Confirmed By:EUGENIE ABDALLA MD
[2019-04-15] MEDS ORDERED: AZITHROMYCIN IVPB 500 MG/250 ML BAG IVPB SCH (10:00)
[2019-04-15] MEDS ORDERED: CEFTRIAXONE 1 GM in SODIUM CHLORIDE 50 ML IVPB SCH (10:00)
[2019-04-15] MEDS ORDERED: NICOTINE 14 MG/24 HOURS TOPICAL PATCH TD SCH (10:00)
[2019-04-15] MEDS: UMECLIDINIUM/VILANTEROL (ANORO) 62.5/25 MCG INHALER IH SCH (10:07)
[2019-04-15] MEDS: HYDROCHLOROTHIAZIDE 12.5 MG CAPSULE (FP) PO SCH (10:07)
--- NOTE | 2019-04-15 12:34 | CON.GI ---
Consult Consult Specialty:: GI Referred by:: Dr. Sullivan Reason for Consultation:: Dark BM - History of Present Illness Chief Complaint: Diarrhea, general malaise. Had fever in ER History of Present Illness: 64 M admitted for evaluation of general malaise. He complained of normal appearing loose BM's for the last three says, then took peptobismol two days prior. Subsequently, his BM's were dark x 2. They sursequently normalized in color. Was noted to have a temp 101 in ED and has a cough. He had episodes of V-Tach per nursing last night. he denies abdominal pain / NSAID use. He is followed by Dr. Jayla James who performed outpatient colonoscopy in 2016. He also had an inpatient endoscopy in 2016 for mel[address] Nino that revealed an erosion in the body of stomach. He denies any recent antibiotic use/ travel/sick contacts. He was guaiac negative in the ER. 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 No: O2 Dependent Gastrointestinal: Yes: GERD, Other (gastric ulcer) Hepatobiliary: Yes: Cholecystitis (Cholecystectomy) Renal/: Yes: Renal Inusuff, Cancer (Testicular) Heme/Onc: Yes: Other (testicular cancer s/p chemo) Endocrine: Yes: Diabetes Mellitus - Past Surgical History Past Surgical History: Yes: Appendectomy, CABG, Cholecystectomy Additional Surgical History: lymph node dissections, orchiectomy - Alcohol/Substance Use Hx Alcohol Use: No History of Substance Use: reports: None - Smoking History Smoking history: Current every day smoker Have you smoked in the past 12 months: Yes Aproximately how many cigarettes per day: 20 - Social History Usual Living Arrangement: With Spouse ADL: Independent 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 Place of : [facility] History of Recent Travel: No Home Medications - Allergies Allergies/Adverse Reactions: Allergies Allergy/AdvReac Type Severity Reaction Status Date / Time No Known Drug Allergies Allergy Verified 04/14/19 15:01 latex AdvReac Severe Rash Verified 04/14/19 15:01 TAPE AdvReac Severe Uncoded 04/14/19 15:01 - Home Medications Home Medications: Ambulatory Orders Insulin Lispro [Humalog] 0 unit SQ ASDIR 12/02/17 Pantoprazole Sodium 40 mg PO BID 12/02/17 metFORMIN HCL [Metformin ER Osmotic] 1,000 mg PO BID 12/02/17 Atorvastatin Ca [Lipitor] 40 mg PO HS 04/14/19 Dulaglutide [Trulicity] 0 mg SQ WEEKLY 04/14/19 Hydrochlorothiazide [Hctz -] 12.5 mg PO DAILY 04/14/19 Insulin Degludec [Tresiba] 80 unit SQ DAILY 04/14/19 Magnesium 0 mg PO BID 04/14/19 Ramipril [Altace] 2.5 mg PO DAILY 04/14/19 Rivaroxaban [Xarelto] 5 mg PO BID 04/14/19 Umeclidinium Brm/Vilanterol Tr [Anoro Ellipta 62.5-25 Mcg INH] 1 each IH DAILY 04/14/19 Family Disease History - Family Disease History Family Disease History: Diabetes: Grandparent, Heart Disease: Father ( in sleep age 89), CA: Mother ( 80's: Possibly had BCA), Other: Father, Mother, Sister (2, Does not know them), Son (x2 Alive and Healthy) Other Family History: No family history of colorectal cancer Review of Systems - Review of Systems Constitutional: reports: Fever Cardiovascular: denies: Chest Pain Physical Exam-GI Vital Signs: Vital Signs Temperature 97.5 F L 04/15/19 10:00 Pulse Rate 54 L 04/15/19 10:00 Respiratory Rate 18 04/15/19 10:00 Blood Pressure 145/65 04/15/19 10:00 O2 Sat by Pulse Oximetry (%) 93 L 04/15/19 09:00 Constitutional: Yes: Calm Eyes: No: Sclera Icterus HENT: Yes: Drooling Cardiovascular: Yes: Bradycardia Respiratory: Yes: Wheezes (Mild wheezes bilaterally) Gastrointestinal Inspection: Yes: Other (long vertcial midline abdominopelvic surgical scar.) ...Auscultate: Yes: Normoactive Bowel Sounds ...Palpate: Yes: Soft. No: Hepatomegaly, Splenomegaly, Tenderness ...Percussion: No: Tympanitic ...Rectal Exam: Yes: Other (No external lesions, no masses, light sumner stool guaiac negtive) Edema: Yes Edema: LLE: 1+ (stasis changes), RLE: 4+ (stasis changes) Neurological: Yes: Alert Labs: CBC, BMP 04/15/19 06:25 04/15/19 06:25 INR, PTT INR 1.61 (0.83-1.09) H 04/14/19 16:30 Problem List - Problems (1) Diarrhea Assessment/Plan: Sounded like non-bloody diarrhea followed by dark BM's only after pepto-bismol use. Guaiac negative in the ED and on exam today. Advise: Advance diet Repeat CBC ordered for afternoon. If continued dwindling H/H / overt melena, upper endoscopy could be considered while inpatient if cleared from cardiology standpoint (episodes of V-Tach). Otherwise if stable h/H, can follow-up with Dr. James as outpatient. Protonix 40mg once daily Discussed potential EGD with Mr. Quevedo. Discussed potential risks of the procedure like but not limited to bleeding, perforation requiring surgery to repair, infection, sedation medication effects all of which could be potentially life threatening. He has agreed to the procedure. Code(s): R19.7 - DIARRHEA, UNSPECIFIED Qualifiers: Diarrhea type: unspecified type Qualified Code(s): R19.7 - Diarrhea, unspecified
[2019-04-15] MEDS ORDERED: PATIENT'S OWN MEDICATION (NON-FORMULARY) (Dulaglutide [Trulicity] 0.75 MG) SQ SCH (13:00)
--- NOTE | 2019-04-15 13:43 | CON.PULM ---
Consult Consult Specialty:: PULMONARY Referred by:: Hospitalist Reason for Consultation:: COPD - History of Present Illness Chief Complaint: diarrhea History of Present Illness: 64yo male with h/o HTN, DM, hyperlipidemia, CAD s/p CABG, atrial fibrillation on anticoagulation, testicular ca who was admitted with diarrhea and fevers. Denies chest pain or discomfort. Reports a chronic cough productive of green sputum and occasional wheezing. He is a long time smoker, started at age 13, smokes 2 PPD. Longest he quit was 6 months after his CABG. 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 No: O2 Dependent Gastrointestinal: Yes: GERD, Other (gastric ulcer) Hepatobiliary: Yes: Cholecystitis (Cholecystectomy) Renal/: Yes: Renal Inusuff, Cancer (Testicular) Endocrine: Yes: Diabetes Mellitus - Past Surgical History Past Surgical History: Yes: Appendectomy, CABG, Cholecystectomy Additional Surgical History: lymph node dissections, orchiectomy - Alcohol/Substance Use Hx Alcohol Use: No History of Substance Use: reports: None - Smoking History Smoking history: Current every day smoker Have you smoked in the past 12 months: Yes Aproximately how many cigarettes per day: 20 If you are a former smoker, when did you quit?: 1 month ago - Social History Usual Living Arrangement: With Spouse ADL: Independent 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 History of Recent Travel: No Home Medications - Allergies Allergies/Adverse Reactions: Allergies Allergy/AdvReac Type Severity Reaction Status Date / Time No Known Drug Allergies Allergy Verified 04/14/19 15:01 latex AdvReac Severe Rash Verified 04/14/19 15:01 TAPE AdvReac Severe Uncoded 04/14/19 15:01 - Home Medications Home Medications: Ambulatory Orders Insulin Lispro [Humalog] 0 unit SQ ASDIR 12/02/17 Pantoprazole Sodium 40 mg PO BID 12/02/17 metFORMIN HCL [Metformin ER Osmotic] 1,000 mg PO BID 12/02/17 Atorvastatin Ca [Lipitor] 40 mg PO HS 04/14/19 Dulaglutide [Trulicity] 0 mg SQ WEEKLY 04/14/19 Hydrochlorothiazide [Hctz -] 12.5 mg PO DAILY 04/14/19 Insulin Degludec [Tresiba] 80 unit SQ DAILY 04/14/19 Magnesium 0 mg PO BID 04/14/19 Ramipril [Altace] 2.5 mg PO DAILY 04/14/19 Rivaroxaban [Xarelto] 5 mg PO BID 04/14/19 Umeclidinium Brm/Vilanterol Tr [Anoro Ellipta 62.5-25 Mcg INH] 1 each IH DAILY 04/14/19 Family Disease History - Family Disease History Family Disease History: Diabetes: Grandparent, Heart Disease: Father ( in sleep age 89), CA: Mother ( 80's: Possibly had BCA), Other: Father, Mother, Sister (2, Does not know them), Son (x2 Alive and Healthy) Other Family History: No family history of colorectal cancer Review of Systems - Review of Systems Constitutional: reports: Fever, Weakness Eyes: denies: Recent Change in Vision HENT: denies: Nasal Congestion, Throat Pain Neck: denies: Stiffness, Tenderness Cardiovascular: reports: Shortness of Breath. denies: Chest Pain, Palpitations Respiratory: reports: Cough, SOB on Exertion, Wheezing. denies: Hemoptysis Gastrointestinal: reports: Diarrhea. denies: Abdominal Pain, Nausea, Vomiting Genitourinary: denies: Dysuria, Hematuria Neurological: denies: Dizziness, Headache Endocrine: denies: Unexplained Weight Loss Physical Exam Vital Sings: Vital Signs Temperature 97.5 F L 04/15/19 10:00 Pulse Rate 54 L 04/15/19 10:00 Respiratory Rate 18 04/15/19 10:00 Blood Pressure 145/65 04/15/19 10:00 O2 Sat by Pulse Oximetry (%) 93 L 04/15/19 09:00 Constitutional: Yes: Mild Distress Eyes: Yes: Conjunctiva Clear, EOM Intact HENT: Yes: Atraumatic, Normocephalic Neck: Yes: Supple, Trachea Midline Cardiovascular: Yes: Regular Rate and Rhythm Respiratory: Yes: Rhonchi, Wheezes ...Clubbing: No Gastrointestinal: Yes: Normal Bowel Sounds, Soft. No: Tenderness Edema: No Neurological: Yes: Alert, Oriented Labs: CBC, BMP 04/15/19 06:25 04/15/19 06:25 ABG Results ABG pH 7.46 (7.35-7.45) H 04/15/19 05:05 ABG pCO2 at Pt Temp 33.2 mmHg (35-45) L 04/15/19 05:05 ABG pO2 at Pt Temp 79.0 mmHg (80-105) L 04/15/19 05:05 ABG HCO3 23.3 mmol/L (22-27) 04/15/19 05:05 ABG O2 Sat (Measured) 95.7 % (95-98) 04/15/19 05:05 ABG O2 Content 15.7 % vol (15-22) 04/15/19 05:05 ABG Base Excess 0.4 meq/l (-2-2) 04/15/19 05:05 Imaging - Results Chest X-ray: Report Reviewed, Image Reviewed (no infiltrates) Problem List - Problems (1) COPD exacerbation Code(s): J44.1 - CHRONIC OBSTRUCTIVE PULMONARY DISEASE W (ACUTE) EXACERBATION (2) Diarrhea Code(s): R19.7 - DIARRHEA, UNSPECIFIED Qualifiers: Diarrhea type: unspecified type Qualified Code(s): R19.7 - Diarrhea, unspecified (3) GI bleed Code(s): K92.2 - GASTROINTESTINAL HEMORRHAGE, UNSPECIFIED (4) CAD (coronary artery disease) Code(s): I25.10 - ATHSCL HEART DISEASE OF [place] CORONARY ARTERY W/O ANG PCTRS Qualifiers: Coronary Disease-Associated Artery/Lesion type: bypass graft (5) CKD (chronic kidney disease) stage 2, GFR 60-89 ml/min Code(s): N18.2 - CHRONIC KIDNEY DISEASE, STAGE 2 (MILD) (6) DM type 2 (diabetes mellitus, type 2) Code(s): E11.9 - TYPE 2 DIABETES MELLITUS WITHOUT COMPLICATIONS Qualifiers: Diabetes mellitus 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
[2019-04-15] MEDS ORDERED: ALBUTEROL SO4 0.083% IH SOL 2.5 MG/3 ML VIAL.NEB. NEB PRN (13:45)
[2019-04-15] MEDS: PANTOPRAZOLE 40 MG TABLET (FP) PO SCH (13:47)
[2019-04-15 13:49] LABS: HEMATOCRIT 36.8 % (35.4-49); HEMOGLOBIN 12.2 GM/dL (11.7-16.9); MCH 27.4 pg (25.7-33.7); MEAN CELL VOLUME 82.8 fl (80-96); MEAN PLT VOLUME 7.7 fl (7.5-11.1); PLATELET COUNT 206 K/MM3 (134-434); RBC 4.44 M/mm3 (4.00-5.60); RDW 15.8 % (11.9-15.9); WHITE BLOOD COUNT 7.5 K/mm3 (4.0-10.0)
[2019-04-15] MEDS ORDERED: ALBUTEROL SO4 2.5/IPRATROPIUM 0.5 INH SOL 3 ML VIAL.NEB. NEB SCH (16:00)
--- NOTE | 2019-04-15 16:13 | PN ---
Progress Note (short form) - Note Progress Note: ID CONSULT DICTATED ? GI BLEEDING EXACERBATION COPD CHRONIC BRONCHITIS NO EVIDENCE OF PNEUMONIA CONTINUE ZITHROMAX FOR TX OF BRONCHITIS
[2019-04-15] MEDS: ALBUTEROL SO4 0.083% IH SOL 2.5 MG/3 ML VIAL.NEB. NEB SCH ×2 (17:02→20:00)
[2019-04-15] MEDS: methylPREDNISolone NA SUCC 40 MG/1 ML VIAL IVPUSH SCH (17:46)
[2019-04-16] MEDS: methylPREDNISolone NA SUCC 40 MG/1 ML VIAL IVPUSH SCH ×2 (01:22→09:35)
[2019-04-16] MEDS: INSULIN SLIDING SCALE (NOVOLOG) 1 VIAL SQ SCH ×2 (06:20→13:49)
[2019-04-16 06:30] LABS: HEMATOCRIT 37.2 % (35.4-49); HEMOGLOBIN 12.7 GM/dL (11.7-16.9); MCH 27.8 pg (25.7-33.7); MCHC 34.1 g/dl (32.0-35.9); MEAN CELL VOLUME 81.5 fl (80-96); MEAN PLT VOLUME 8.3 fl (7.5-11.1); PLATELET COUNT 211 K/MM3 (134-434); RBC 4.56 M/mm3 (4.00-5.60); RDW 15.4 % (11.9-15.9); WHITE BLOOD COUNT 5.1 K/mm3 (4.0-10.0)
[2019-04-16 06:53] LABS: ALBUMIN 3.1 g/dl (3.4-5.0); BILIRUBIN,TOTAL 0.5 mg/dL (0.2-1); BLOOD UREA NITROGEN 23.6 mg/dL (7-18); CALCIUM 8.3 mg/dL (8.5-10.1); CREATININE 1.2 mg/dL (0.55-1.3); POTASSIUM 4.7 mmol/L (3.5-5.1); TOT PROT 6.6 g/dl (6.4-8.2)
[2019-04-16] MEDS: ALBUTEROL SO4 0.083% IH SOL 2.5 MG/3 ML VIAL.NEB. NEB SCH ×2 (07:20→11:15)
--- NOTE | 2019-04-16 07:25 | PN ---
Progress Note (short form) - Note Progress Note: The patient is well known from the office. He came to the ER with c/o dark stool and generalized malaise. Was found to have T101. He was started on antibiotics for COPD exacerbation. Guaiac stools were negative and dark color was likely due to Peptobismol that he takes for recurrent episodes of diarhhea. H/H remained stable. He is scheduled for EGD today by GI. Vital Signs (72 hours) 04/14/19 04/14/19 04/15/19 14:58 18:35 01:30 Temperature 98.4 F 101.0 F H 98.9 F Pulse Rate 45 L 66 Pulse Rate [ 57 L Right] Respiratory 18 16 20 Rate Blood Pressure 128/44 L 127/62 Blood Pressure 131/61 [Left Arm] O2 Sat by Pulse 99 93 L Oximetry (%) 04/15/19 04/15/19 04/15/19 06:00 09:00 10:00 Temperature 98.7 F 97.5 F L Pulse Rate 65 54 L Pulse Rate [ Right] Respiratory 20 18 18 Rate Blood Pressure 148/78 145/65 Blood Pressure [Left Arm] O2 Sat by Pulse 93 L Oximetry (%) 04/15/19 04/15/19 04/15/19 15:30 18:17 22:00 Temperature 98.4 F 98.8 F 99.1 F Pulse Rate 79 59 L 74 Pulse Rate [ Right] Respiratory 18 18 Rate Blood Pressure 151/79 153/70 153/76 Blood Pressure [Left Arm] O2 Sat by Pulse 94 L Oximetry (%) 04/16/19 04/16/19 02:00 06:00 Temperature 98.4 F 98.4 F Pulse Rate 86 79 Pulse Rate [ Right] Respiratory 20 20 Rate Blood Pressure 155/92 150/74 Blood Pressure [Left Arm] O2 Sat by Pulse Oximetry (%) ON PE awake, alert, comfortable Neck supple Lungs-few rhonchi, b/l bs Heart S1S2 regular, 2/6 SM Abdomen soft, NT EXT-no CCE Laboratory Results - last 24 hr 04/15/19 04/15/19 04/15/19 06:25 06:25 11:42 WBC 6.3 RBC 4.21 Hgb 11.6 L Hct 34.3 L MCV 81.5 MCH 27.5 MCHC 33.7 RDW 15.7 Plt Count 206 MPV 8.3 Absolute Neuts (auto) 4.6 Neutrophils % 74.0 Lymphocytes % 11.4 Monocytes % 13.2 H Eosinophils % 1.0 D Basophils % 0.4 Nucleated RBC % 0 Sodium 138 Potassium 3.9 Chloride 103 Carbon Dioxide 27 Anion Gap 8 BUN 23.0 H Creatinine 1.2 Est GFR (CKD-EPI)AfAm 73.11 Est GFR (CKD-EPI)NonAf 63.08 POC Glucometer 177 Random Glucose 83 Calcium 8.3 L Magnesium Total Bilirubin AST ALT Alkaline Phosphatase Total Protein Albumin 04/15/19 04/15/19 04/15/19 12:30 13:40 17:13 WBC 7.5 RBC 4.44 Hgb 12.2 Hct 36.8 MCV 82.8 MCH 27.4 MCHC 33.0 RDW 15.8 Plt Count 206 MPV 7.7 Absolute Neuts (auto) Neutrophils % Lymphocytes % Monocytes % Eosinophils % Basophils % Nucleated RBC % Sodium Potassium Chloride Carbon Dioxide Anion Gap BUN Creatinine Est GFR (CKD-EPI)AfAm Est GFR (CKD-EPI)NonAf POC Glucometer 246 Random Glucose Calcium Magnesium 2.0 Total Bilirubin AST ALT Alkaline Phosphatase Total Protein Albumin 04/15/19 04/16/19 04/16/19 21:11 05:43 05:50 WBC 5.1 RBC 4.56 Hgb 12.7 Hct 37.2 MCV 81.5 MCH 27.8 MCHC 34.1 RDW 15.4 Plt Count 211 MPV 8.3 Absolute Neuts (auto) Neutrophils % Lymphocytes % Monocytes % Eosinophils % Basophils % Nucleated RBC % Sodium Potassium Chloride Carbon Dioxide Anion Gap BUN Creatinine Est GFR (CKD-EPI)AfAm Est GFR (CKD-EPI)NonAf POC Glucometer 339 345 Random Glucose Calcium Magnesium Total Bilirubin AST ALT Alkaline Phosphatase Total Protein Albumin 04/16/19 05:50 WBC RBC Hgb Hct MCV MCH MCHC RDW Plt Count MPV Absolute Neuts (auto) Neutrophils % Lymphocytes % Monocytes % Eosinophils % Basophils % Nucleated RBC % Sodium 132 L Potassium 4.7 Chloride 98 Carbon Dioxide 24 Anion Gap 10 BUN 23.6 H Creatinine 1.2 Est GFR (CKD-EPI)AfAm 73.11 Est GFR (CKD-EPI)NonAf 63.08 POC Glucometer Random Glucose 365 H* Calcium 8.3 L Magnesium Total Bilirubin 0.5 AST 18 ALT 34 Alkaline Phosphatase 86 Total Protein 6.6 Albumin 3.1 L Current Active Problems Problem Status Onset COPD exacerbation Acute Diarrhea Acute GI bleed Acute Plan Nicotine patch discussed re smoking sessation. Will D/C antibiotics. D/c home after EGD if OK with GI and restart Xarelto. Continue home Insulin management, endo, GI, cardiology f/u as outpatient
--- NOTE | 2019-04-16 07:31 | DS ---
Physical Examination Vital Signs: Vital Signs Temperature 98.4 F 04/16/19 06:00 Pulse Rate 79 04/16/19 06:00 Respiratory Rate 20 04/16/19 06:00 Blood Pressure 150/74 04/16/19 06:00 O2 Sat by Pulse Oximetry (%) 94 L 04/15/19 22:00 Constitutional: Yes: No Distress Eyes: Yes: Conjunctiva Clear, EOM Intact HENT: Yes: Atraumatic, Normocephalic Neck: Yes: Supple, Trachea Midline Cardiovascular: Yes: Regular Rate and Rhythm Respiratory: Yes: Regular, Cough Gastrointestinal: Yes: Normal Bowel Sounds, Soft ...Rectal Exam: Yes: Deferred Renal/: No: Anuria Breast(s): Yes: WNL Musculoskeletal: No: Back Pain Extremities: No: Amputation, Calf Tenderness Neurological: Yes: WNL, Alert, Oriented ...Motor Strength: WNL Psychiatric: Yes: WNL Labs: CBC, BMP 04/16/19 05:50 04/16/19 05:50 Discharge Summary Reason For Visit: Black stool, fever Current Active Problems COPD exacerbation (Acute) Diarrhea (Acute) GI bleed (Acute) Condition: Stable - Instructions Disposition: HOME - Home Medications Comprehensive Discharge Medication List: Ambulatory Orders Insulin Lispro [Humalog] 0 unit SQ ASDIR 12/02/17 Pantoprazole Sodium 40 mg PO BID 12/02/17 metFORMIN HCL [Metformin ER Osmotic] 1,000 mg PO BID 12/02/17 Atorvastatin Ca [Lipitor] 40 mg PO HS 04/14/19 Dulaglutide [Trulicity] 0 mg SQ WEEKLY 04/14/19 Hydrochlorothiazide [Hctz -] 12.5 mg PO DAILY 04/14/19 Insulin Degludec [Tresiba] 80 unit SQ DAILY 04/14/19 Magnesium 0 mg PO BID 04/14/19 Ramipril [Altace] 2.5 mg PO DAILY 04/14/19 Rivaroxaban [Xarelto] 5 mg PO BID 04/14/19 Umeclidinium Brm/Vilanterol Tr [Anoro Ellipta 62.5-25 Mcg INH] 1 each IH DAILY 04/14/19
--- NOTE | 2019-04-16 09:24 | CON.CARD ---
Consult Consult Specialty:: cardio - History of Present Illness Chief Complaint: dark stools History of Present Illness: 64 M here with dark stools. has h/o prior recurrent small bowel bleeding on NOAC, was anxious that dark stools represented bleeding again. so far w/u here unrevealing for ongoing bleeding, with stable H/H. febrile here, felt to be sec to a.e. copd/URI--treated with abx by dr zuleta noted to have frequent PVCs, we were asked to evaluate for cardiac risk from planned EGD office non-compliance chronically. saw me 01/27 s/p hospitalization for atypical chest pain and frequent PVCs. declined MPI as inpt (fears of from the test, friend similarly). cp sx's then were similar to prior recurrent non-cardiac chest pains going back to 2011 with very similar descriptors, and negative workups (cath and stress test) did not follow up in office since that visit presently: denies cp, sob here or at home says leg swelling stable cough/wheeze improving no palpitations, syncope PMH: PAFib--on NOAC small bowel GI bleeding--s/p SB enteroscopy at 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 No: O2 Dependent Gastrointestinal: Yes: GERD, Other (gastric ulcer) Hepatobiliary: Yes: Cholecystitis (Cholecystectomy) Renal/: Yes: Renal Inusuff, Cancer (Testicular) Endocrine: Yes: Diabetes Mellitus - Past Surgical History Past Surgical History: Yes: Appendectomy, CABG, Cholecystectomy Additional Surgical History: lymph node dissections, orchiectomy - Alcohol/Substance Use Hx Alcohol Use: No History of Substance Use: reports: None - Smoking History Smoking history: Current every day smoker Have you smoked in the past 12 months: Yes Aproximately how many cigarettes per day: 20 If you are a former smoker, when did you quit?: 1 month ago - Social History Usual Living Arrangement: With Spouse ADL: Independent 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 History of Recent Travel: No Home Medications - Allergies Allergies/Adverse Reactions: Allergies Allergy/AdvReac Type Severity Reaction Status Date / Time No Known Drug Allergies Allergy Verified 04/14/19 15:01 latex AdvReac Severe Rash Verified 04/14/19 15:01 TAPE AdvReac Severe Uncoded 04/14/19 15:01 - Home Medications Home Medications: Ambulatory Orders Insulin Lispro [Humalog] 0 unit SQ ASDIR 12/02/17 Pantoprazole Sodium 40 mg PO BID 12/02/17 metFORMIN HCL [Metformin ER Osmotic] 1,000 mg PO BID 12/02/17 Atorvastatin Ca [Lipitor] 40 mg PO HS 04/14/19 Dulaglutide [Trulicity] 0 mg SQ WEEKLY 04/14/19 Hydrochlorothiazide [Hctz -] 12.5 mg PO DAILY 04/14/19 Insulin Degludec [Tresiba] 80 unit SQ DAILY 04/14/19 Magnesium 0 mg PO BID 04/14/19 Ramipril [Altace] 2.5 mg PO DAILY 04/14/19 Rivaroxaban [Xarelto] 5 mg PO BID 04/14/19 Umeclidinium Brm/Vilanterol Tr [Anoro Ellipta 62.5-25 Mcg INH] 1 each IH DAILY 04/14/19 Family Disease History - Family Disease History Family Disease History: Diabetes: Grandparent, Heart Disease: Father ( in sleep age 89), CA: Mother ( 80's: Possibly had BCA), Other: Father, Mother, Sister (2, Does not know them), Son (x2 Alive and Healthy) Other Family History: No family history of colorectal cancer Review of Systems - Review of Systems Constitutional: denies: Chills, Fever Eyes: denies: Eye Pain HENT: denies: Nasal Congestion Neck: denies: Stiffness Cardiovascular: denies: Palpitations Respiratory: denies: Orthopnea, PND Gastrointestinal: denies: Diarrhea, Rectal Bleeding Genitourinary: denies: Burning, Hematuria Musculoskeletal: denies: Muscle Pain Integumentary: denies: Rash Neurological: denies: Numbness, Seizure, Syncope Endocrine: denies: Excessive Sweating Hematology/Lymphatic: denies: Excessive Bleeding Vital Signs: Vital Signs Temperature 98.4 F 04/16/19 06:00 Pulse Rate 79 04/16/19 06:00 Respiratory Rate 20 04/16/19 06:00 Blood Pressure 150/74 04/16/19 06:00 O2 Sat by Pulse Oximetry (%) 94 L 04/15/19 22:00 Constitutional: Yes: Well Nourished, No Distress Eyes: No: Sclera Icterus HENT: No: Nasal Congestion Neck: No: Decreased ROM Respiratory: Yes: CTA Bilaterally. No: Accessory Muscle Use, Rales, Wheezes Gastrointestinal: Yes: Normal Bowel Sounds. No: Distention, Hepatomegaly, Palpable Mass, Tenderness Cardiovascular: Yes: Regular Rate and Rhythm JVD: No Carotid Bruit: No PMI: Non-Displaced Heart Sounds: Yes: S1, S2. No: Gallop Murmur: No: Systolic Murmur, Diastolic Murmur Musculoskeletal: Yes: Other (No kyphosis) Extremities: No: Cold, Cyanosis Edema: Yes (1-2+ ankles (R > L)) Peripheral Pulses: 2+ Left Carotid, 2+ Right Carotid, 2+ Left Doralis Pedis, 2+ Right Dorsalis Pedis Integumentary: No: Jaundice Neurological: Yes: Alert, Oriented (x3) Psychiatric: No: Agitated - Other Data Labs, Other Data: CBC, BMP 04/16/19 05:50 04/16/19 05:50 INR, PTT INR 1.61 (0.83-1.09) H 04/14/19 16:30 Laboratory Tests 12/02/16 04/14/19 04/15/19 17:00 20:05 12:30 WBC Hgb Plt Count Sodium Potassium Carbon Dioxide BUN Creatinine Magnesium 2.0 AST ALT Troponin I 0.05 B-Natriuretic Peptide 275.30 H 1817.8 H 04/16/19 04/16/19 05:50 05:50 WBC 5.1 Hgb 12.7 Plt Count 211 Sodium 132 L Potassium 4.7 Carbon Dioxide 24 BUN 23.6 H Creatinine 1.2 Magnesium AST 18 ALT 34 Troponin I B-Natriuretic Peptide Assessment/Plan Cardiac CTA 02/2018: patent SON to LAD, SVT to OM1-->RPDA; "no evident unprotected coronary stenosis." nl LVEF (55%). bicuspid AV with trivial . dilated ascending aorta (4.3 cm at sinuses of Valsalva). dilated PA--? pulm HTN C 08/2012: [place] [facility] VD, patent SVG to Lcx-OM1 jump to RPDA, patent SON to LAD Stress Echo 01/2018: suboptimal HR, low ex time, no LV fxn abnormality seen Stress Echo 04/28: 1:55min (87% MPHR)--dyspnea; no STs. Rest images showed: Technically limited images. Normal wall motion in all visualized territories, normal LVEF. Post-exercise images showed: Technically limited images. Normal augmentation of contraction in all visualized territories, with appropriate increase in LVEF TIM 01/26 ([place]): nl LV/EF; mild-mod LVH; nl RV; (peak 25; PIPO 1.2-1.6); mild MR; s/p LUCAS ligation with residual appenage cavity with small flow into it from LA, and ? thrombus inside Echo 03/2016: nl LV/EF; nl RV; mild LAE; mild ECG: NSR, R axis, freq PVCs. nonsp TWAs infer/lateral leads--no signif change vs prior 01/2018 CXR: clear lungs, no acute process tele: NSR, freq PVCs, NSVT up to 5 beats frequent PVCs, preop CV eval: -Revised CV Risk Index = 3, preserved functional capacity -frequent PVCs are chronic, likely emanating from outflow tract origin based on qrs morphology. has preserved LVEF during prior w/u for this (rest part of stress echo here). has never had sx's of sustained VT, no suspicious syncope -tele here similar to priors, not hi risk for VT/VF with preserved EF and benign history -no s/sx of active CAD or CHF -intolerant of low dose b-mis previously -medically optimized, at acceptable CV risk for planned procedure (GI scope) -K and Mag currently optimized (>4 and 2), aggressive monitoring and repletion plan as doing -needs repeat LVEF, as he will require EPS/ablation of PVC site if EF begins to decline (vs mexilitene suppression trial)--echo can be done as outpatient (d/w' d pt, agrees to follow up. will arrange appt with who supervises his medical appts) dark stools, on NOAC, h/o small bowel AVMS ablation: -no signs of active bleeding here -GI input appreciated, plan for rpt EGD -continuing NOAC for now paroxysmal Afib/AFL (asymptomatic): -intolerant of metoprolol prophylaxis, he c/o'd s.e. even at low dose -CHADS VASC 4, s/p LUCAS ligation at time of CABG however small communication remains on TIM at [place]--on AC per EP -on Eliquis 5 bid as of last visit with me 01/2018--NOAC held here pending GI clearance -resume home NOAC once ok with GI CAD s/p CABG: -no suspected angina -no ischemia 2016. patent grafts with no ischemic territories on CCTA 02/2018. -cont home meds (ASA, statin, LETY/bp control) bicuspid AV with aorta root aneurysm: -diagnosed on CCTA 02/27 -normal AV function -4.3 cm aorta root (at sinuses) -bp control tricky, intolerant of even low dose BB -routine outpt surveillance q1 year (gated MRA if pt can tolerate, otherwise needs CCTA)--will arrange office f/u after hosp stay and acute issues are resolved elevated BNP, venous ins'y/chronic LE edema: -drawn on DOA, when GFR down -no signs of CHF presently--defer diuresis DM, uncontrolled: -per pmd HTN, h/o orthostatic hypotension/vasovagal syncope, ? DM autonomic neuropathy: -tight control limited by low bp tendencies -cont home ramipril HPL: -med and office non-adherence confounds tx -LDL suboptimal--atorva 40 rx'd in 2018, was planned to increase later -cont same meds for now, office f/u rec'd
[2019-04-16] MEDS: HYDROCHLOROTHIAZIDE 12.5 MG CAPSULE (FP) PO SCH (09:35)
[2019-04-16] MEDS: PANTOPRAZOLE 40 MG TABLET (FP) PO SCH (09:35)
[2019-04-16] MEDS: UMECLIDINIUM/VILANTEROL (ANORO) 62.5/25 MCG INHALER IH SCH (09:36)
[2019-04-16] MEDS ORDERED: NICOTINE 21 MG/24 HOURS TOPICAL PATCH TD SCH (10:00)
[2019-04-16] MEDS ORDERED: AZITHROMYCIN IVPB 500 MG/250 ML BAG IVPB SCH (10:00)
[2019-04-16] MEDS ORDERED: RAMIPRIL 2.5 MG CAPSULE (FP) PO SCH (10:00)
--- NOTE | 2019-04-16 12:36 | PN ---
Progress Note (short form) - Note Progress Note: OOB to chair. Comfortable on RA. No SOB or CP. No specific history consistent with OSAS. Intake & Output 04/13/19 04/14/19 04/15/19 04/16/19 23:59 23:59 23:59 23:59 Intake Total 455 330 Balance 455 330 Weight 240 lb 229 lb 9.6 oz Last Vital Signs Temp Pulse Resp BP Pulse Ox 98.4 F 79 20 150/74 94 L 04/16/19 06:00 04/16/19 06:00 04/16/19 06:00 04/16/19 06:00 04/15/19 22:00 Active Medications Acetaminophen (Tylenol -) 650 mg PO Q6H PRN PRN Reason: FEVER Albuterol Sulfate (Ventolin 0.083% Nebulizer Soln -) 1 amp NEB RQID [facility] Last Admin: 04/16/19 11:15 Dose: 1 amp Albuterol Sulfate (Ventolin 0.083% Nebulizer Soln -) 1 amp NEB Q4H PRN PRN Reason: SHORT OF BREATH/WHEEZING Atorvastatin Calcium (Lipitor -) 40 mg PO HS [facility] Last Admin: 04/15/19 21:12 Dose: 40 mg Hydrochlorothiazide (Hctz -) 12.5 mg PO DAILY [facility] Last Admin: 04/16/19 09:35 Dose: 12.5 mg Azithromycin (Zithromax 500mg Ivpb (Pre-Docked)) 500 mg in 250 mls @ 250 mls/ hr IVPB DAILY [facility] Stop: 04/19/19 10:59 Insulin Aspart (Novolog Vial Sliding Scale -) 1 vial SQ ACHS [facility]; Protocol Last Admin: 04/16/19 06:20 Dose: 10 units Methylprednisolone Sodium Succinate (Solu-Medrol -) 40 mg IVPUSH Q8H-IV [facility] Last Admin: 04/16/19 09:35 Dose: 40 mg Nicotine (Nicoderm Patch -) 21 mg TD DAILY [facility] Last Admin: 04/16/19 09:35 Dose: 21 mg Non-Formulary Medication (Dulaglutide [Trulicity]) 0.75 mg SQ Q7D@0700 [facility] Last Admin: 04/15/19 13:05 Dose: 0.75 mg Pantoprazole Sodium (Protonix -) 40 mg PO DAILY [facility] Last Admin: 04/16/19 09:35 Dose: 40 mg Ramipril (Altace -) 2.5 mg PO DAILY [facility] Last Admin: 04/16/19 09:35 Dose: 2.5 mg Umeclidinium/Vilanterol (Anoro Ellipta 62.5-25 Mcg Inh) 1 puff IH DAILY [facility] Last Admin: 04/16/19 09:36 Dose: 1 puff Constitutional: Yes: NAD Eyes: Yes: Conjunctiva Clear, EOM Intact HENT: Yes: Atraumatic, Normocephalic Neck: Yes: Supple, Trachea Midline Cardiovascular: Yes: Regular Rate and Rhythm Respiratory: Yes: Few scattered Rhonchi, No wheezes ...Clubbing: No Gastrointestinal: Yes: Normal Bowel Sounds, Soft. No: Tenderness Edema: No Neurological: Yes: Alert, Oriented Labs: Laboratory Results - last 24 hr 04/15/19 04/15/19 04/15/19 12:30 13:40 17:13 WBC 7.5 RBC 4.44 Hgb 12.2 Hct 36.8 MCV 82.8 MCH 27.4 MCHC 33.0 RDW 15.8 Plt Count 206 MPV 7.7 Sodium Potassium Chloride Carbon Dioxide Anion Gap BUN Creatinine Est GFR (CKD-EPI)AfAm Est GFR (CKD-EPI)NonAf POC Glucometer 246 Random Glucose Calcium Magnesium 2.0 Total Bilirubin AST ALT Alkaline Phosphatase Total Protein Albumin 04/15/19 04/16/19 04/16/19 21:11 05:43 05:50 WBC 5.1 RBC 4.56 Hgb 12.7 Hct 37.2 MCV 81.5 MCH 27.8 MCHC 34.1 RDW 15.4 Plt Count 211 MPV 8.3 Sodium Potassium Chloride Carbon Dioxide Anion Gap BUN Creatinine Est GFR (CKD-EPI)AfAm Est GFR (CKD-EPI)NonAf POC Glucometer 339 345 Random Glucose Calcium Magnesium Total Bilirubin AST ALT Alkaline Phosphatase Total Protein Albumin 04/16/19 04/16/19 05:50 11:31 WBC RBC Hgb Hct MCV MCH MCHC RDW Plt Count MPV Sodium 132 L Potassium 4.7 Chloride 98 Carbon Dioxide 24 Anion Gap 10 BUN 23.6 H Creatinine 1.2 Est GFR (CKD-EPI)AfAm 73.11 Est GFR (CKD-EPI)NonAf 63.08 POC Glucometer 327 Random Glucose 365 H* Calcium 8.3 L Magnesium Total Bilirubin 0.5 AST 18 ALT 34 Alkaline Phosphatase 86 Total Protein 6.6 Albumin 3.1 L Problem List - Problems (1) COPD exacerbation Code(s): J44.1 - CHRONIC OBSTRUCTIVE PULMONARY DISEASE W (ACUTE) EXACERBATION (2) Diarrhea Code(s): R19.7 - DIARRHEA, UNSPECIFIED Qualifiers: Diarrhea type: unspecified type Qualified Code(s): R19.7 - Diarrhea, unspecified (3) GI bleed Code(s): K92.2 - GASTROINTESTINAL HEMORRHAGE, UNSPECIFIED (4) CAD (coronary artery disease) Code(s): I25.10 - ATHSCL HEART DISEASE OF [place] CORONARY ARTERY W/O ANG PCTRS Qualifiers: Coronary Disease-Associated Artery/Lesion type: bypass graft (5) CKD (chronic kidney disease) stage 2, GFR 60-89 ml/min Code(s): N18.2 - CHRONIC KIDNEY DISEASE, STAGE 2 (MILD) (6) DM type 2 (diabetes mellitus, type 2) Code(s): E11.9 - TYPE 2 DIABETES MELLITUS WITHOUT COMPLICATIONS Qualifiers: Diabetes mellitus senior living insulin use: with senior living use Chronic kidney disease stage: stage 2 (mild) (7) Tobacco dependence Code(s): F17.200 - NICOTINE DEPENDENCE, UNSPECIFIED, UNCOMPLICATED Assessment/Plan Resolving Acute COPD Exacerbation Chronic Bronchitis Diarrhea CAD s/p CABG Atrial Fibrillation HTN Hyperlipidemia Testicular Ca Smoker No specific history consistent with OSAS - short course of medrol - inhaled bronchodilators standing and PRN - azithromycin - O2 to keep SpO2 >90% - smoking cessation discussed - rate control - continue anticoagulation - outpt PFTs and f/u - There is no Pulmonary contraindication for anesthesia or endoscopy, although he is at increased but reasonable risk. Of note patient was actively smoking until [address] Braswell
--- NOTE | 2019-04-16 13:46 | PN ---
Progress Note (short form) - Note Progress Note: GI follow up Pt reports normal bm Denies abdominal pain Vital Signs Temp 98.4 F 04/16/19 06:00 Pulse 79 04/16/19 06:00 Resp 20 04/16/19 06:00 BP 150/74 04/16/19 06:00 Pulse Ox 94 L 04/15/19 22:00 NAD Abd benign CBC, BMP 04/16/19 05:50 04/16/19 05:50 Impression: Resolved dark bm after pepto. No longer with diarrhea. Hgb stable. No need for EGD at this point. Can advance diet. No GI contraindication to AC.
[2019-04-16 15:42] VITALS: BP 140/67; PULSE 86; TEMP 97.5
--- NOTE | 2019-04-16 19:14 | CONS ---
INFECTIOUS DISEASE CONSULTATION DATE OF CONSULTATION: DATE OF DICTATION: 04/16/2019 The patient is a 64-year-old male who is evaluated for possible pneumonia. He was admitted to the hospital on April 14, 2019, with complaints of dark stools and diarrhea. In the emergency room, he was noted to be febrile. Chest x-ray showed evidence of previous surgery, no evidence of infiltrate. Patient reports cough productive of whitish sputum. He attributes his cough to chronic tobacco use. He denies any chest pain or dyspnea. He denied any recent febrile illness. No known ill contacts. No recent travel. Patient has not been recently hospitalized. PAST MEDICAL HISTORY: Positive for diabetes mellitus, hypertension, atrial fibrillation, COPD, hyperlipidemia, gastric ulcer, testicular cancer. PAST SURGICAL HISTORY: Status post appendectomy, cholecystectomy, and coronary artery bypass. ALLERGIES: No known allergies. MEDICATIONS: Trulicity, Solu-Medrol, Tylenol, Altace, Zithromax. SOCIAL HISTORY: Positive tobacco use. No history of alcohol abuse or illicit drug use. PHYSICAL EXAMINATION: General: He is awake and alert, out of bed to chair, not acutely toxic appearing. Vital Signs: Temperature 97.5; blood pressure 145/65; pulse 54, regular; respirations 18 per minute. HEENT: Sclerae anicteric. Heart: Sounds S1, S2. Lungs: Diminished breath sounds bilaterally. Abdomen: Obese, soft, nontender. Extremities: Edema 1+. LABORATORY DATA: White count 7.5, hematocrit 36.8, platelets 206. Creatinine 1.2. IMPRESSION: 1. Rule out gastrointestinal bleeding. 2. Exacerbation of chronic obstructive pulmonary disease. 3. Chronic bronchitis. No clinical or radiographic evidence of pneumonia. Continue Zithromax for treatment of tracheobronchitis. Case discussed with patient's present at the time of the examination. Thank you for the kind referral. SARA WORTHY M.D. [id number]
== END 2019-04-16 14:07 | disposition home or self-care (01) | DRG 191 ==
LOC: JER 14:52 → JERBED 20:24 → J4W 04-15 01:12
PROVIDERS: ADMIT Internal Medicine; ATTEND Nurse Practitioner Acute Care
DX: J44.1 Chronic obstructive pulmonary disease with (acute) exacerbation (principal); I48.92 Unspecified atrial flutter; Z79.01 Long term (current) use of anticoagulants; E78.5 Hyperlipidemia, unspecified; F17.210 Nicotine dependence, cigarettes, uncomplicated; Z79.4 Long term (current) use of insulin; I25.10 Atherosclerotic heart disease of native coronary artery without angina pectoris; Z95.1 Presence of aortocoronary bypass graft; E66.9 Obesity, unspecified; I48.0 Paroxysmal atrial fibrillation; R19.7 Diarrhea, unspecified; E11.22 Type 2 diabetes mellitus with diabetic chronic kidney disease; I12.9 Hypertensive chronic kidney disease with stage 1 through stage 4 chronic kidney disease, or unspecified chronic kidney disease; N18.2 Chronic kidney disease, stage 2 (mild); I49.3 Ventricular premature depolarization; Z91.19 Patient's noncompliance with other medical treatment and regimen; E11.65 Type 2 diabetes mellitus with hyperglycemia; C62.90 Malignant neoplasm of unspecified testis, unspecified whether descended or undescended; Z68.27 Body mass index [BMI] 27.0-27.9, adult; N28.9 Disorder of kidney and ureter, unspecified
CPT/HCPCS: 36415; 36600; 71046-TC-FY; 80048; 80053; 81003; 82272; 82375; 82550; 82803; 82962; 83050; 83735; 83880; 84484; 85025; 85027; 85610; 85730; 87040; 87086; 93005; 93010; 94640; 99285-25; J7030

== ENCOUNTER 2021-11-14 10:43 | Day surgery (SDC) | payer OTHER, MEDICARE ==
[2021-11-14] MEDS ORDERED: FERRIC CARBOXYMALTOSE 750 MG in SODIUM CHLORIDE 250 ML IVPB SCH (11:15)
[2021-11-14 12:58] VITALS: BP 110/66; PULSE 79; TEMP 97.8
== END 2021-11-14 13:00 | disposition home or self-care (01) ==
LOC: FINFUSION 10:43 → FM/S 10:52 → FINFUSION 13:00
PROVIDERS: ATTEND Internal Medicine
PROC: 3E033GC Introduction of Other Therapeutic Substance into Peripheral Vein, Percutaneous Approach (ICD-10-PCS; principal; 2021-11-14)
DX: D50.9 Iron deficiency anemia, unspecified (principal)
CPT/HCPCS: 96365; J1439

== ENCOUNTER 2021-11-21 10:45 | Day surgery (SDC) | payer OTHER, MEDICARE ==
[2021-11-21] MEDS ORDERED: FERRIC CARBOXYMALTOSE 750 MG in SODIUM CHLORIDE 250 ML IVPB SCH (11:45)
[2021-11-21 12:23] VITALS: BP 98/59; PULSE 80; TEMP 98
== END 2021-11-21 13:00 | disposition home or self-care (01) ==
LOC: FINFUSION 10:45 → FM/S 10:52 → FINFUSION 13:00
PROVIDERS: ATTEND Internal Medicine
PROC: 3E033GC Introduction of Other Therapeutic Substance into Peripheral Vein, Percutaneous Approach (ICD-10-PCS; principal; 2021-11-21)
DX: D50.9 Iron deficiency anemia, unspecified (principal)
CPT/HCPCS: 96365; J1439

== ENCOUNTER 2022-08-20 10:46 | Emergency (ER) | payer OTHER, MEDICARE ==
[2022-08-20 11:03] VITALS: TEMP 98.7; BMI 28.7
[2022-08-20] MEDS ORDERED: DIVALPROEX SODIUM 125 MG SPRINKLE CAPS PO ONE ×2 (16:34→17:28)
[2022-08-20 17:07] LABS: BASO % 0.8 % (0-2.0); EOS % 1.6 % (0-4.5); HEMATOCRIT 35.4 % (35.4-49); HEMOGLOBIN 11.3 GM/dL (11.7-16.9); LYMPH % 11.4 % (8-40); MCH 27.7 pg (25.7-33.7); MCHC 31.7 g/dl (32.0-35.9); MEAN CELL VOLUME 87.4 fl (80-96); MEAN PLT VOLUME 8.1 fl (7.5-11.1); MONO % 10.9 % (3.8-10.2); NEUT % 75.3 % (42.8-82.8); PLATELET COUNT 159 10^3/uL (134-434); RBC 4.06 M/mm3 (4.00-5.60); RDW 19.4 % (11.9-15.9)
[2022-08-20 17:24] LABS: CALCIUM 8.8 mg/dL (8.5-10.1)
[2022-08-20 17:25] LABS: ALBUMIN 3.3 g/dl (3.4-5.0); BLOOD UREA NITROGEN 16.7 mg/dL (7-18)
[2022-08-20 17:31] LABS: BILIRUBIN,TOTAL 0.7 mg/dL (0.2-1); TOT PROT 6.6 g/dl (6.4-8.2)
[2022-08-20 17:32] LABS: INR 1.19 (0.83-1.09); PROTHROMBIN TIME (PATIENT) 13.7 SEC (9.7-13.0)
[2022-08-20] MEDS ORDERED: CEFTRIAXONE 1 GM in DEXTROSE 5%-WATER - 100 ML IVPB ONE (19:15)
[2022-08-20] MEDS ORDERED: AZITHROMYCIN IVPB 500 MG in DEXTROSE 5%-WATER - 250 ML IVPB ONE (19:15)
[2022-08-20 23:54] VITALS: BP 149/83; PULSE 90; RESP 18
[2022-08-21] MEDS ORDERED: ACETAMINOPHEN 500 MG TABLET (FP) PO ONE (08:12)
== END 2022-08-21 00:02 | disposition home or self-care (01) ==
LOC: JER 10:46
DX: R41.82 Altered mental status, unspecified (principal)
CPT/HCPCS: 36415; 70450-TC; 71045-TC-FY; 73030-TC-LT-FY; 80053; 84484; 85025; 85610; 86850; 86900; 86901; 93005; 93010; 99285-25; C9803-CS; U0003; U0005

== ENCOUNTER 2022-08-21 01:04 | Observation (INO) | payer OTHER, MEDICARE ==
[2022-08-21] MEDS ORDERED: ACETAMINOPHEN 325 MG TABLET (FP) ONE (08:20)
[2022-08-21] MEDS ORDERED: ACETAMINOPHEN 325 MG TABLET (FP) PO PRN (10:11)
[2022-08-21] MEDS ORDERED: ACETAMINOPHEN 500 MG TABLET (FP) PO ONE (10:25)
[2022-08-21] MEDS ORDERED: LIDOCAINE 5% TOPICAL PATCH ONE (11:26)
[2022-08-21] MEDS: LIDOCAINE 5% TOPICAL PATCH TP SCH (11:30)
[2022-08-21] MEDS: RIVAROXABAN 2.5 MG TABLET PO SCH (22:36)
[2022-08-21] MEDS: PANTOPRAZOLE 40 MG TABLET PO SCH (22:36)
[2022-08-21] MEDS: MAGNESIUM OXIDE 400 MG TABLET (FP) PO SCH (22:37)
[2022-08-21] MEDS: ATORVASTATIN CA 40 MG TABLET (FP) PO SCH (22:37)
[2022-08-21] MEDS: LIDOCAINE PATCH REMOVAL MC SCH (22:40)
[2022-08-21] MEDS ORDERED: INSULIN (LEVEMIR) 100 UNITS/ML UNITS SQ ONE (23:08)
[2022-08-21] MEDS: INSULIN (LEVEMIR) 100 UNITS/ML UNITS SQ SCH (23:38)
[2022-08-22] MEDS: INSULIN (LEVEMIR) 100 UNITS/ML UNITS SQ SCH ×2 (06:50→23:07)
[2022-08-22] MEDS: LIDOCAINE 5% TOPICAL PATCH TP SCH (09:34)
[2022-08-22] MEDS: PANTOPRAZOLE 40 MG TABLET PO SCH ×2 (09:35→22:56)
[2022-08-22] MEDS: HYDROCHLOROTHIAZIDE 12.5 MG CAPSULE (FP) PO SCH (09:36)
[2022-08-22] MEDS: MAGNESIUM OXIDE 400 MG TABLET (FP) PO SCH ×2 (09:36→22:56)
[2022-08-22] MEDS: RIVAROXABAN 2.5 MG TABLET PO SCH ×2 (09:37→22:58)
[2022-08-22] MEDS: RAMIPRIL 5 MG CAPSULE PO SCH (09:39)
[2022-08-22] MEDS ORDERED: DIVALPROEX SODIUM 125 MG SPRINKLE CAPS PO SCH (12:10)
[2022-08-22] MEDS: UMECLIDINIUM/VILANTEROL (ANORO) 62.5/25 MCG INHALER IH SCH (13:37)
[2022-08-22] MEDS: BRIMONIDINE TARTRATE 0.2% OPHTHALMIC 5 ML BOTTLE OU SCH ×2 (13:56→23:44)
[2022-08-22] MEDS: DIVALPROEX SODIUM 125 MG SPRINKLE CAPS PO SCH (18:27)
[2022-08-22] MEDS ORDERED: INSULIN (LEVEMIR) 100 UNITS/ML UNITS SQ ONE (20:51)
[2022-08-22] MEDS: ATORVASTATIN CA 40 MG TABLET (FP) PO SCH (22:57)
[2022-08-22] MEDS: LIDOCAINE PATCH REMOVAL MC SCH (23:03)
[2022-08-22] MEDS: LATANOPROST 0.005% OPHTH SOLN 2.5ML BOTTLE OS SCH (23:43)
[2022-08-23] MEDS: LEVOTHYROXINE NA 25 MCG TABLET (FP) PO SCH (06:10)
[2022-08-23] MEDS: INSULIN (LEVEMIR) 100 UNITS/ML UNITS SQ SCH ×2 (06:10→21:41)
[2022-08-23] MEDS: BRIMONIDINE TARTRATE 0.2% OPHTHALMIC 5 ML BOTTLE OU SCH ×3 (06:11→21:39)
[2022-08-23] MEDS: PANTOPRAZOLE 40 MG TABLET PO SCH ×2 (09:52→21:41)
[2022-08-23] MEDS: MAGNESIUM OXIDE 400 MG TABLET (FP) PO SCH ×2 (09:52→21:41)
[2022-08-23] MEDS: LIDOCAINE 5% TOPICAL PATCH TP SCH (09:52)
[2022-08-23] MEDS: HYDROCHLOROTHIAZIDE 12.5 MG CAPSULE (FP) PO SCH (09:53)
[2022-08-23] MEDS: DIVALPROEX SODIUM 125 MG SPRINKLE CAPS PO SCH (09:54)
[2022-08-23] MEDS: RAMIPRIL 5 MG CAPSULE PO SCH (09:55)
[2022-08-23] MEDS: FLUDROCORTISONE ACETATE 0.1 MG TABLET (FP) PO SCH (09:56)
[2022-08-23] MEDS ORDERED: DIVALPROEX SODIUM 125 MG SPRINKLE CAPS PO SCH (10:00)
[2022-08-23] MEDS: RIVAROXABAN 2.5 MG TABLET PO SCH ×2 (10:52→21:42)
[2022-08-23 16:20] VITALS: BMI 24.5
[2022-08-23] MEDS: UMECLIDINIUM/VILANTEROL (ANORO) 62.5/25 MCG INHALER IH SCH (17:22)
[2022-08-23] MEDS: LIDOCAINE PATCH REMOVAL MC SCH (21:41)
[2022-08-23] MEDS: ATORVASTATIN CA 40 MG TABLET (FP) PO SCH (21:41)
[2022-08-23] MEDS: LATANOPROST 0.005% OPHTH SOLN 2.5ML BOTTLE OS SCH (21:42)
[2022-08-24] MEDS: LEVOTHYROXINE NA 25 MCG TABLET (FP) PO SCH (06:58)
[2022-08-24] MEDS: BRIMONIDINE TARTRATE 0.2% OPHTHALMIC 5 ML BOTTLE OU SCH (07:44)
[2022-08-24] MEDS: INSULIN (LEVEMIR) 100 UNITS/ML UNITS SQ SCH (07:45)
[2022-08-24] MEDS ORDERED: AMINO ACIDS/PROTEIN HYDROLYS 30 ML LIQUID.PKT PO SCH (08:00)
[2022-08-24] MEDS: MAGNESIUM OXIDE 400 MG TABLET (FP) PO SCH (09:56)
[2022-08-24] MEDS: PANTOPRAZOLE 40 MG TABLET PO SCH (09:56)
[2022-08-24] MEDS: HYDROCHLOROTHIAZIDE 12.5 MG CAPSULE (FP) PO SCH (09:56)
[2022-08-24] MEDS: RAMIPRIL 5 MG CAPSULE PO SCH (09:57)
[2022-08-24] MEDS: DIVALPROEX SODIUM 125 MG SPRINKLE CAPS PO SCH (09:57)
[2022-08-24] MEDS: UMECLIDINIUM/VILANTEROL (ANORO) 62.5/25 MCG INHALER IH SCH (09:57)
[2022-08-24] MEDS: FLUDROCORTISONE ACETATE 0.1 MG TABLET (FP) PO SCH (09:57)
[2022-08-24] MEDS: LIDOCAINE 5% TOPICAL PATCH TP SCH (09:58)
[2022-08-24] MEDS ORDERED: MULTIVITAMINS (DAILY MVI) TABLET (FP) PO SCH (10:00)
[2022-08-24] MEDS: RIVAROXABAN 2.5 MG TABLET PO SCH (10:01)
[2022-08-24 12:16] VITALS: BP 124/62; PULSE 87; RESP 17; TEMP 97.6
== END 2022-08-24 13:28 | disposition home health service (06) ==
LOC: JER 01:04 → UNDOADMOB 09:32 → INTOOBSV 09:32 → JERBED 09:32 → J7W 21:45
PROVIDERS: ADMIT Internal Medicine; ATTEND Internal Medicine
DX: Z01.89 Encounter for other specified special examinations (principal); U07.1 COVID-19; I48.91 Unspecified atrial fibrillation; I10 Essential (primary) hypertension; E11.9 Type 2 diabetes mellitus without complications; Z79.4 Long term (current) use of insulin; E78.5 Hyperlipidemia, unspecified; K25.9 Gastric ulcer, unspecified as acute or chronic, without hemorrhage or perforation; J44.9 Chronic obstructive pulmonary disease, unspecified; D64.9 Anemia, unspecified; Z85.47 Personal history of malignant neoplasm of testis; Z87.891 Personal history of nicotine dependence; Z91.040 Latex allergy status
CPT/HCPCS: 82962; 97116-GP; 99284-25; 99285-25; C9803-CS; G0378; U0003; U0005

== ENCOUNTER 2024-06-05 17:02 | Observation (INO) | payer OTHER ==
[2024-06-05 18:08] LABS: BASO % 0.6 % (0-2.0); EOS % 1.4 % (0-4.5); HEMATOCRIT 39.4 % (35.4-49); HEMOGLOBIN 13.1 GM/dL (11.7-16.9); LYMPH % 8.7 % (8-40); MCH 29.8 pg (25.7-33.7); MCHC 33.3 g/dl (32.0-35.9); MEAN CELL VOLUME 89.4 fl (80-96); MEAN PLT VOLUME 7.7 fl (7.5-11.1); NEUT % 80.3 % (42.8-82.8); PLATELET COUNT 120 10^3/uL (134-434); RBC 4.41 M/mm3 (4.00-5.60); RDW 16.6 % (11.9-15.9); WHITE BLOOD COUNT 6.1 K/mm3 (4.0-10.0)
[2024-06-05 18:22] LABS: INR 1.27 (0.83-1.09); PROTHROMBIN TIME (PATIENT) 14.5 SEC (9.7-13.0)
[2024-06-05 18:23] LABS: POTASSIUM 4.6 mmol/L (3.5-5.1)
[2024-06-05 18:25] LABS: ACTIVATED PTT 34.4 SECONDS (25.2-36.5); ALBUMIN 3.5 g/dl (3.4-5.0); BLOOD UREA NITROGEN 42.1 mg/dL (7-18); CALCIUM 9.2 mg/dL (8.5-10.1); MAGNESIUM 2.2 mg/dL (1.8-2.4)
[2024-06-05 18:28] LABS: CREATININE 1.7 mg/dL (0.55-1.3)
[2024-06-05 18:29] LABS: PHOSPHOROUS 3.7 mg/dL (2.5-4.9)
[2024-06-05 18:30] LABS: BILIRUBIN,TOTAL 0.8 mg/dL (0.2-1); TOT PROT 7.3 g/dl (6.4-8.2)
[2024-06-05 18:33] LABS: N-TERMINAL BNP 3883.3 pg/ml (5-125)
[2024-06-05 18:36] LABS: LACTIC ACID 3.6 mmol/L (0.4-2.0)
[2024-06-05] MEDS: LACTATED RINGERS SOLUTION 1000 ML INFUS.BAG IV ONE (19:27)
[2024-06-05 21:10] LABS: PH,URINE 5.5 (5.0-8.0); URINE APPEARANCE CLEAR; URINE BILIRUBIN NEGATIVE (NEGATIVE); URINE COLOR YELLOW; URINE GLUCOSE (UA) 3+ (NEGATIVE); URINE KETONE NEGATIVE (NEGATIVE); URINE LEUK ESTERASE NEGATIVE (NEGATIVE); URINE NITRITE NEGATIVE (NEGATIVE); URINE PROTEIN NEGATIVE (NEGATIVE); URINE UROBILINOGEN 0.2 mg/dL (0.2-1.0)
[2024-06-06] MEDS ORDERED: APIXABAN 5 MG TABLET ONE ×2 (00:25→09:40)
[2024-06-06] MEDS: SODIUM CHLORIDE 1,000 ML IV SCH (00:34)
[2024-06-06] MEDS: APIXABAN 5 MG TABLET PO SCH (00:34)
[2024-06-06 07:48] LABS: HEMATOCRIT 39.7 % (35.4-49); MCH 29.5 pg (25.7-33.7); MCHC 32.8 g/dl (32.0-35.9); MEAN PLT VOLUME 7.6 fl (7.5-11.1); PLATELET COUNT 115 10^3/uL (134-434); RBC 4.41 M/mm3 (4.00-5.60); RDW 16.3 % (11.9-15.9); WHITE BLOOD COUNT 6.7 K/mm3 (4.0-10.0)
[2024-06-06 08:00] LABS: POTASSIUM 3.9 mmol/L (3.5-5.1)
[2024-06-06] MEDS: LEVOTHYROXINE NA 25 MCG TABLET (FP) PO SCH (08:00)
[2024-06-06 08:02] LABS: BLOOD UREA NITROGEN 36.6 mg/dL (7-18); MAGNESIUM 2.1 mg/dL (1.8-2.4)
[2024-06-06 08:05] LABS: CREATININE 1.3 mg/dL (0.55-1.3); PHOSPHOROUS 3.1 mg/dL (2.5-4.9)
[2024-06-06] MEDS ORDERED: LEVOTHYROXINE NA 25 MCG TABLET (FP) ONE (09:40)
[2024-06-06] MEDS ORDERED: PANTOPRAZOLE 40 MG TABLET PO ONE (09:40)
[2024-06-06] MEDS: PANTOPRAZOLE 40 MG TABLET PO SCH (10:01)
[2024-06-06] MEDS: INSULIN ASPART SLIDING SCALE (NOVOLOG) 1 VIAL SQ SCH (18:42)
[2024-06-06] MEDS: ATORVASTATIN CA 40 MG TABLET (FP) PO SCH (21:41)
[2024-06-06] MEDS: BUDESONIDE/FORMETEROL FUMARATE 160/4.5 mcg INHALER IH SCH (22:28)
[2024-06-06] MEDS: LATANOPROST 0.005% OPHTH SOLN 2.5ML BOTTLE OS SCH (22:28)
[2024-06-06] MEDS: BRIMONIDINE TARTRATE 0.2% OPHTHALMIC 5 ML BOTTLE OU SCH (22:29)
[2024-06-07 00:45] VITALS: BMI 22.7
[2024-06-07 09:00] LABS: BASO % 0.6 % (0-2.0); EOS % 1.9 % (0-4.5); HEMOGLOBIN 12.7 GM/dL (11.7-16.9); MCH 29.5 pg (25.7-33.7); MCHC 33.3 g/dl (32.0-35.9); MEAN CELL VOLUME 88.4 fl (80-96); MEAN PLT VOLUME 7.5 fl (7.5-11.1); NEUT % 70.5 % (42.8-82.8); PLATELET COUNT 111 10^3/uL (134-434); RDW 16.3 % (11.9-15.9); WHITE BLOOD COUNT 4.9 K/mm3 (4.0-10.0)
[2024-06-07 09:15] LABS: POTASSIUM 3.7 mmol/L (3.5-5.1)
[2024-06-07 09:18] LABS: ALBUMIN 3.1 g/dl (3.4-5.0); CALCIUM 8.8 mg/dL (8.5-10.1)
[2024-06-07 09:19] LABS: BLOOD UREA NITROGEN 23.6 mg/dL (7-18)
[2024-06-07 09:23] LABS: BILIRUBIN,TOTAL 0.8 mg/dL (0.2-1); TOT PROT 6.5 g/dl (6.4-8.2)
[2024-06-09 08:32] LABS: BASO % 0.5 % (0-2.0); EOS % 0.5 % (0-4.5); HEMATOCRIT 35.7 % (35.4-49); HEMOGLOBIN 11.9 GM/dL (11.7-16.9); LYMPH % 10.3 % (8-40); MCH 29.8 pg (25.7-33.7); MCHC 33.4 g/dl (32.0-35.9); MEAN CELL VOLUME 89.1 fl (80-96); MEAN PLT VOLUME 7.9 fl (7.5-11.1); MONO % 18.8 % (3.8-10.2); NEUT % 69.9 % (42.8-82.8); PLATELET COUNT 104 10^3/uL (134-434); RBC 4.01 M/mm3 (4.00-5.60); RDW 16.7 % (11.9-15.9); WHITE BLOOD COUNT 6.3 K/mm3 (4.0-10.0)
[2024-06-09 08:55] LABS: POTASSIUM 3.7 mmol/L (3.5-5.1)
[2024-06-09 09:04] LABS: CALCIUM 8.9 mg/dL (8.5-10.1)
[2024-06-09 09:07] LABS: BLOOD UREA NITROGEN 23.3 mg/dL (7-18)
[2024-06-09 09:12] LABS: BILIRUBIN,TOTAL 1.4 mg/dL (0.2-1)
[2024-06-09 09:14] LABS: TOT PROT 6.2 g/dl (6.4-8.2)
[2024-06-09 11:25] VITALS: BP 132/91; PULSE 89; RESP 19; TEMP 98.4
== END 2024-06-09 14:28 ==
LOC: JER 17:02 → INTOOBSV 21:40 → UNDOADMOB 21:40 → JERBED 21:40 → J4W 06-06 19:50
PROVIDERS: ADMIT Student in an Organized Health Care Education/Training Program; ATTEND Internal Medicine
PROC: 3E013VG Introduction of Insulin into Subcutaneous Tissue, Percutaneous Approach (ICD-10-PCS; principal; 2024-06-06)
PROC: 3E0337Z Introduction of Electrolytic and Water Balance Substance into Peripheral Vein, Percutaneous Approach (ICD-10-PCS; 2024-06-06)
DX: R55 Syncope and collapse (principal); T14.8XXA Other injury of unspecified body region, initial encounter; X58.XXXA Exposure to other specified factors, initial encounter; Y93.9 Activity, unspecified; N17.9 Acute kidney failure, unspecified; Z79.01 Long term (current) use of anticoagulants; E11.9 Type 2 diabetes mellitus without complications; I10 Essential (primary) hypertension; J44.9 Chronic obstructive pulmonary disease, unspecified; E78.5 Hyperlipidemia, unspecified; K25.9 Gastric ulcer, unspecified as acute or chronic, without hemorrhage or perforation; I42.9 Cardiomyopathy, unspecified; D64.9 Anemia, unspecified; I48.0 Paroxysmal atrial fibrillation; Z95.0 Presence of cardiac pacemaker; E03.9 Hypothyroidism, unspecified; Y92.9 Unspecified place or not applicable; H54.7 Unspecified visual loss
CPT/HCPCS: 0241U-QW; 36415; 70450-TC; 70480-TC; 71045-TC-FY; 71048-TC-FY; 73502-TC-RT-FY; 73552-TC-RT-FY; 73630-TC-RT-FY; 80048; 80053; 81003; 82962; 83036; 83605; 83735; 83880; 84100; 84443; 84484; 85025; 85027; 85610; 85730; 86850; 86900; 86901; 87086; 93005; 93010; 93306-TC; 93880-TC; 96360; 96372; 97116-GP; 97161-GP; 99285-25; G0378